=== PATIENT | male | born 1990 | race Caucasian/White ===

== ENCOUNTER → 2019-09-18 15:52 | Outpatient (BNVA) | payer SELFPAY | PROVIDERS: Family Provider Family Medicine; PCP Family Medicine; Visit Provider Specialist | DX: G40.309 Generalized idiopathic epilepsy and epileptic syndromes, not intractable, without status epilepticus (principal); F98.8 Other specified behavioral and emotional disorders with onset usually occurring in childhood and adolescence; F17.210 Nicotine dependence, cigarettes, uncomplicated | CPT/HCPCS: 99214 ==

== ENCOUNTER 2019-12-26 19:22 | Inpatient (IN) | payer SELFPAY ==
--- NOTE | 2019-12-26 19:25 | ECG_ITS ---
Measurements Intervals [place] Rate: 99 P: 64 AL: 155 QRS: 34 QRSD: 85 T: 43 QT: 324 QTc: 417 SINUS RHYTHM Compared to ECG 12/14/2016 11:08:04 Sinus tachycardia no longer present Electronically Signed On 12-27-2019 8:14:58 CDT by Walter Chow M.D. [email or web address]
[2019-12-26 19:31] VITALS: BP 131/82; PULSE 104; RESP 16; TEMP 37.2; O2SAT 98; BMI 21.7
--- NOTE | 2019-12-26 19:42 | W.ED.PSYCH ---
HPI - Psych General: Chief Complaint: Psychiatric Symptoms Stated Complaint: MHE Time Seen by Provider: 12/26/19 19:25 History of Present Illness: HPI Narrative: Steven is a 29-year-old male who comes in complaining of having visual and auditory hallucinations. He also has had thoughts about wanting to hurt and kill himself. He states the voices are telling him to stop using drugs which he says he does not do. He states the voices are escalating in intensity to the point he does not feel like he can cope with this anymore. Review of Systems Const: Denies: fever(s), chills, body aches, fatigue, malaise or diaphoresis Eyes: Denies: change in vision, blurry vision, blind spots or photophobia ENMT: Denies: throat pain, odynophagia, hoarseness, swelling of lips/tongue, ear or mastoid pain, ear discharge, change in hearing or nasal discharge Card: Denies: chest pain, palpitations, irregular heart rhythm, edema, lightheadedness, syncope, pre-syncope, dyspnea on exertion or orthopnea Resp: Denies: dyspnea, productive cough, non-productive cough, wheezing, hemoptysis or chest congestion GI: Denies: abdominal pain, nausea, vomiting, hematemesis, coffee ground emesis, heartburn, diarrhea, constipation, GI cramping, hematochezia or melena : Denies: flank pain, dysuria, urinary frequency, urinary urgency or hematuria Musc: Denies: neck pain, back pain, extremity pain, extremity swelling, joint pain, joint swelling, joint redness, joint warmth or joint stiffness Skin/Breast: Denies: rash, pruritus, erythema, skin tenderness or jaundice Neuro: Denies: headache(s), numbness in extremities, weakness in extremities, sensory changes, lack of coordination, difficulty walking, dizziness, vertigo, confusion or Slurred speech present [place]/Lymph: Denies: easy bruising, easy bleeding, petechiae, purpura or enlarged lymph nodes All/Imm: Denies: urticaria, throat swelling, tongue swelling, facial swelling or acute wheezing PFSH ED PFSH: Medical History ADD (attention deficit disorder) Primary generalized epilepsy, major Family History Other CAD (coronary artery disease) Cancer Diabetes Hypertension Stroke Social History Smoking and tobacco status: current every day smoker cigarettes Packs smoked per day: 0.5 Alcohol intake: never Highest education level completed: Never Attended/Kindergarten Only History of recent travel: No Physical Exam Const: COMMON NORMALS: no acute distress, patient oriented x3, no limitations, healthy appearing and well nourished GENERAL APPEARANCE: cooperative, well kempt and well developed HENMT: COMMON NORMALS: normocephalic, atraumatic, hearing grossly normal bilaterally, external ears normal, EAC's normal, Normal external nose present and moist oral mucous membranes HEAD & SCALP: normocephalic and atraumatic NOSE: Normal external nose present and Normal nares present EXTERNAL EAR: Yes external ears normal EXTERNAL AUDITORY CANAL: EAC's normal MOUTH: Normal oral and palatal mucosa present, lip normal and tongue normal Eye: COMMON NORMALS: Equal, round and reactive pupils present, EOMs intact bilaterally, conjunctivae normal and no scleral icterus GENERAL EYE: appearance normal, both eyes and all related structures ALIGNMENT: Yes alignment normal PERIORBITAL: periorbital findings normal EYELID: eyelids normal CONJUNCTIVA: Yes conjunctivae normal SCLERA: sclerae normal PUPIL: Yes Equal, round and reactive pupils present Neck/C-Spine: COMMON NORMALS: full ROM, no lymphadenopathy, supple, no meningeal signs and no JVD GENERAL: Yes normal visual inspection and Yes trachea midline Chest: COMMONS NORMALS: normal inspection of the chest and normal palpation of entire chest wall Resp: COMMON NORMALS: normal respiratory effort, No retractions, No use of accessory muscles and clear to auscultation bilaterally EFFORT & INSPECTION: Yes able to speak in complete sentences and Yes symmetric chest movement AUSCULTATION: clear to auscultation bilaterally, no crackles, no rales, no rhonchi and no wheezes Cardio: COMMON NORMALS: no JVD, regular rate, regular rhythm, S1 normal heart sound present, S2 normal heart sound present, No gallops present (Cardio), No clicks present (Cardio), No murmurs present (Cardio) and No rub (Cardio) RATE: regular rate RHYTHM: regular rhythm HEART SOUNDS: S1 normal heart sound present and S2 normal heart sound present GI: COMMON NORMALS: Soft to palpation and No hepatosplenomegaly present PALPATION: Yes Soft to palpation, No Tenderness to palpation present (GI), No Guarding due to palpation present (GI), No Rigid due to palpation, Yes No hepatosplenomegaly present, No Hernia present, No Palpable mass present and No Pulsatile mass present : COMMON NORMALS: Yes no CVA tenderness BLADDER/KIDNEY EXAM: Yes no CVA tenderness Back/Pelvis: COMMON NORMALS: no CVA tenderness, thoracic and lumbar spine normal to inspection, no thoracic nor lumbar tenderness and thoraco-lumbar ROM normal Extremity: COMMON NORMALS: normal to inspection, full ROM, capillary refill normal, no joint enlargement, no clubbing, cyanosis or edema and no calf tenderness Neuro: COMMON NORMALS: patient oriented x3, CN's II-XII intact bilaterally, moves all extremities, no focal motor deficits and no sensory deficits noted MENINGEAL SIGNS: Yes no meningeal signs SPEECH: speech normal Psych: COMMON NORMALS: mental status grossly normal APPEARANCE: Yes well kempt ACTIVITY/MOTOR BEHAVIOR: Yes Avoids eye contact (attititude/behavior) SPEECH: Yes excessive and Yes Pressured speech present MOOD & AFFECT: Yes anxious ATTENTION/CONCENTRATION: Yes attention grossly intact and Yes concentration grossly intact INSIGHT: questionable JUDGEMENT: questionable Skin: COMMON NORMALS: no rashes or lesions noted, turgor normal, no jaundice, no petechiae and no mottling GENERAL SKIN EXAM: no rashes or lesions noted and turgor normal MDM - Psych MDM Narrative: Medical decision making narrative: Case has been reviewed with Dr. Burnett. He agrees accept the patient to the neuropsychiatric unit. Once patient's labs are back for medical clearance he will be admitted. Lab Data: Labs: Lab Results 12/26/19 12/26/19 12/26/19 Range/Units 19:44 19:44 19:44 WBC 14.1 H (4.0-10.0) 10^3/ uL RBC 5.05 (4.1-5.3) 10^6/u L Hgb 15.4 (11.7-16.6) g/dL Hct 46.1 (42.0-52.0) % MCV 91.3 (80-94) fL MCH 30.5 (28.0-34.0) pg MCHC 33.4 (30.0-36.0) g/dL RDW 12.2 (12.1-15.1) % Plt Count 312 (130-400) 10^3/c mm MPV 9.8 (7.4-10.4) fL Neut % (Auto) 76.2 % Lymph % (Auto) 15.8 % [place] % (Auto) 5.4 % Eos % (Auto) 1.9 % Baso % (Auto) 0.4 % Neut # (Auto) 10.7 H (1.8-7.7) 10^3/u L Lymph # (Auto) 2.2 (0.8-4.8) 10^3/u L [place] # (Auto) 0.8 (0.2-0.9) 10^3/u L Eos # (Auto) 0.3 (0.0-0.8) 10^3/u L Baso # (Auto) 0.1 (0.0-0.1) 10^3/u L Nucleated RBC % (a uto) 0 % Nucleated RBCs # 0.0 /100WBC Sodium 137 (136-145) mmol/L Potassium 3.8 (3.5-5.1) mmol/L Chloride 98 (98-107) mmol/L Carbon Dioxide 28 (22-29) mmol/L Anion Gap 14.8 (5-19) BUN 12 (6-20) mg/dL Creatinine 0.9 (0.7-1.2) mg/dL GFR Calculation 98.4 (90-130) mL/min Glucose 114 (65-115) mg/dL Calculated Osmolal ity 281 L (285-295) mOsm/k g Calcium 9.4 (8.5-10.5) mg/dL Total Bilirubin 0.2 (0.15-1.2) mg/dL AST 16 (0-40) U/L ALT 15 (0-41) U/L Alkaline Phosphata se 52 (40-130) IU/L Total Protein 6.7 (6.6-8.7) g/dL Albumin 4.4 (3.5-5.2) g/dL Globulin 2.3 (1.3-4.6) g/dL TSH 0.29 (0.27-4.20) uIU/ mL Salicylates < 0.3 L (3-10) mg/dL Acetaminophen < 5.0 L (10-30) ug/mL Phenytoin 0.8 L (10-20) ug/mL Valproic Acid 2.8 L (50-100) mcg/mL Carbamazepine 2.0 L (4.0-12.0) ug/mL [place] 0.1 L (0.6-1.2) mmol/L Ethyl Alcohol < 10 (0-10) mg/dL EKG Data^: EKG 1: Attestation: I personally reviewed and interpreted this EKG as follows: EKG interpretation date: 12/26/19 EKG interpretation time: 20:00 Interpretation: Normal sinus rhythm at 99 beats a minute, no acute ST or T wave changes. Normal QTC. Discharge Plan Discharge Patient Disposition: Admitted As Inpatient Admit Provider: Wicho Burnett Clinical Impression: Suicidal ideation, Acute psychosis Condition: Stable Referrals: Gail Zamarripa DO [Primary Care Provider] - Discharge Date/Time: 12/26/19 21:30 Coding Level of Care Code ED Collection Development Librarian for Chg Fwd Exam Comprehensive
[2019-12-26 19:52] LABS: Basophils # 0.1 10^3/uL (0.0-0.1); Basophils % 0.4 %; Eosinophils # 0.3 10^3/uL (0.0-0.8); Eosinophils % 1.9 %; Hematocrit 46.1 % (42.0-52.0); Hemoglobin 15.4 g/dL (11.7-16.6); Lymphocytes # 2.2 10^3/uL (0.8-4.8); Lymphocytes % 15.8 %; Mean Corpuscular HGB Conc 33.4 g/dL (30.0-36.0); Mean Corpuscular Hemoglobin 30.5 pg (28.0-34.0); Mean Corpuscular Volume 91.3 fL (80-94); Mean Platelet Volume 9.8 fL (7.4-10.4); Monocytes # 0.8 10^3/uL (0.2-0.9); Monocytes % 5.4 %; Neutrophils # 10.7 10^3/uL (1.8-7.7); Neutrophils % 76.2 %; Nucleated Red Blood Cells % 0 %; Platelet Count 312 10^3/cmm (130-400); Red Blood Count 5.05 10^6/uL (4.1-5.3); Red Cell Distribution Width 12.2 % (12.1-15.1); White Blood Count 14.1 10^3/uL (4.0-10.0)
[2019-12-26] MEDS: LORazepam 2 mg Tablet PO (20:10)
[2019-12-26 20:20] LABS: Lithium 0.1 mmol/L (0.6-1.2)
[2019-12-26 20:21] LABS: Alanine Aminotransferase 15 U/L (0-41); Albumin Level 4.4 g/dL (3.5-5.2); Alkaline Phosphatase 52 IU/L (40-130); Anion Gap 14.8 (5-19); Aspartate Amino Transferase 16 U/L (0-40); Blood Urea Nitrogen 12 mg/dL (6-20); Calcium 9.4 mg/dL (8.5-10.5); Carbon Dioxide 28 mmol/L (22-29); Chloride 98 mmol/L (98-107); Globulin 2.3 g/dL (1.3-4.6); Glomerular Filtration Rate 98.4 mL/min (90-130); Glucose 114 mg/dL (65-115); Osmolality Calculated 281 mOsm/kg (285-295); Phenytoin Dilantin 0.8 ug/mL (10-20); Potassium 3.8 mmol/L (3.5-5.1); Sodium 137 mmol/L (136-145); Thyroid Stimulating Hormone 0.29 uIU/mL (0.27-4.20); Total Bilirubin 0.2 mg/dL (0.15-1.2); Total Protein 6.7 g/dL (6.6-8.7); Valproic Acid Level 2.8 mcg/mL (50-100)
[2019-12-26 20:22] LABS: Acetaminophen < 5.0 ug/mL (10-30); Alcohol Level < 10 mg/dL (0-10); Salicylate < 0.3 mg/dL (3-10)
[2019-12-26 20:56] LABS: Amphetamines Screen Urine Positive (Negative); Barbiturates Screen Urine Negative (Negative); Benzodiazepines Screen Urine Positive (Negative); Cocaine Screen Urine Negative (Negative); Opiate Screen Urine Negative (Negative); PCP Screen Urine Negative (Negative); THC Screen Urine Positive (Negative)
[2019-12-26 21:46] VITALS: BP 123/82; PULSE 85; RESP 22; TEMP 36.9; O2SAT 99
[2019-12-26] MEDS: trazodone 50 mg Tablet PO (22:05)
[2019-12-26] MEDS: hyDROXYzine 25 mg Capsule 50 MG PO (22:05)
[2019-12-27 06:00] VITALS: BP 107/68; PULSE 64; RESP 18; TEMP 36.5; O2SAT 98
--- NOTE | 2019-12-27 10:23 | PM.NHP ---
Providers/Chief Complaint Admitting Physician: Wicho Burnett MD Primary Care Provider: Gail Zamarripa DO Chief Complaint: mhe HPI NPU History of Present Illness Steven Ricardo is a 29 year old male who presented today reporting that he is not really sure what is going on. He presented to the emergency room earlier endorsing that he is having auditory and visual hallucinations and having thoughts to kill himself. He endorsed voices telling him to do things like stop doing drugs which he does not do. And he reports that he cannot deal with this anymore. Today he is clearly uncomfortable and anxious with the interview. He found it very hard to focus and answer questions and mostly was desperate for help. We discussed the risks benefits and alternatives of initiating a medication to help with the voices. And he understood and agreed to proceed as documented in this note. We reviewed his past admission note and he endorsed that this was an accurate history. This however did not have significant psychosocial information and he was becoming very distraught with each additional question. 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 Per the last [facility] IP eval: History of Present Illness Date of Service: Jul 07, 2016 Chief Complaint: A misunderstanding with Dr. Thornton HPI: Steven is noted the services he was recently hospitalized here. This patient had a follow-up appointment with Dr. Thornton and during that visit it sounds as though the 2 of them had a conflict that culminated in the patient on entering either a para suicidal remark or perhaps threat. I am familiar with this patient as he was here about a week ago he has a history of a mood disorder anxiety and potential diagnosis of ADHD. He has a history of being treated by a psychiatrist in [place] and he has been making an effort to find psychiatric care in this area. As I evaluate the patient now, he is rather stable. Certainly denies any suicidal thinking he reports no homicidality. He does express some frustration in the interaction that he had with the psychiatrist in the outpatient setting. However, he assures me that he has no plans to harm himself or anyone else. We had a discussion about some of the difficulties as it relates to getting into see a psychiatrist. The patient states that he'll simply resume care with his treating psychiatrist in [place] to avoid further complications in this area. He is tolerating current medications so I will be making no changes. I expanded that likely observe him over the next 24-48 hours and discharge him to the outpatient setting. He expresses understanding. I also counseled the patient as to the need for improved mindfulness and he expresses understanding. Allergies: Coded Allergies: No Known Allergies (Unverified , 01/17/16) Active Meds: Meds NPU Home Medications Medication Instructions Recorded Confirmed Last Taken Type acetaminophen 650 mg 1,300 mg PO Q8H PRN tab MDD 4000mg 09/18/19 09/18/19 Unknown History tablet,extended release fluoxetine 40 mg capsule 40 mg PO BID 09/18/19 09/18/19 12/23/19 History levetiracetam 1,000 mg tablet for 1,000 mg PO BID #60 tab 09/18/19 12/27/19 12/24/19 Rx oral suspension gabapentin 300 mg capsule 300 mg PO TID #90 cap 10/22/19 12/23/19 Rx dextroamphetamine-amphetamine 20 mg PO TID 12/26/19 Unknown History Allergies Allergy/AdvReac Type Severity Reaction Status Date / Time azithromycin AdvReac rash Verified 09/18/19 16:23 PFS NPU PFSH: Medical History ADD (attention deficit disorder) Primary generalized epilepsy, major Family History Other CAD (coronary artery disease) Cancer Diabetes Hypertension Stroke Social History Smoking and tobacco status: current every day smoker cigarettes Packs smoked per day: 0.5 Alcohol intake: never Highest education level completed: Never Attended/Kindergarten Only History of recent travel: No Mental Status Exam MSE Comments: This is a well-nourished well-developed white male with adequate dress grooming and limited eye contact. No abnormal movement except for psychomotor retardation when left alone but psychomotor agitation during questioning. Semicooperative with exam in mild to moderate distress. Speech was normal rate decreased volume. Mood described as irritable, affect congruent. Thought process linear. Thought content: Patient endorsed suicidal ideation but denied homicidal ideation. No delusions reported but he definitely appeared guarded, he endorsed auditory visual hallucinations. Attention and concentration were limited and memory was unreliable but none were formally tested. He is alert and oriented x3. Insight and judgment are limited. Vitals/I&O/Wt Last Vital Signs Temp 97.7 F 12/27/19 06:00 Pulse 64 12/27/19 06:00 Resp 18 12/27/19 06:00 BP 107/68 12/27/19 06:00 Pulse Ox 98 12/27/19 06:00 Weight last 48 hrs Weight 61.235 kg Data NPU : 12/26/19 19:44 12/26/19 19:44 A&P Assessment and plan (1) Suicidal ideation: Status: Acute (2) Acute psychosis: Status: Acute Additional A&P Information This is a 29-year-old white male with a long history of mental health diagnoses and treatment with a history of ADHD and depression who presents with psychosis and denying drug use but with a screen positive for multiple substances endorsing an openness for initiation of medication. 1. Continue current medication. Except: Start Abilify 10 mg p.o. every morning. 2. Encourage individual group and milieu therapy. 3. Continue to 15-minute checks for safety. 4. We will work with social work team for appropriate follow-up and explore the extent of his likely addiction with follow-up to include sober living treatment at the highest level to which he is willing to commit. Involuntary Hold Information 96 Hour Hold: 96 Hour Involuntary Admission: No Attestations NPU Medical Necessity Statement*: Inpatient hospitalization is medically necessary and the clinically appropriate intervention at this time. We will initiate medications and make adjustments as indicated. He will be in the hospital for over 2 midnights. Likely length of stay 3 to 5 days. Coding Level of Care Code Acute Rail Transit Operator for Jose Horvath Diagnoses Suicidal ideation R45.851 Acute psychosis F23
[2019-12-27 14:00] VITALS: BP 116/75; PULSE 75; RESP 18; TEMP 36.6
[2019-12-27] MEDS: ARIPiprazole 10 mg Tablet PO (14:45)
[2019-12-27] MEDS: gabapentin 300 mg Capsule PO (21:30)
[2019-12-27] MEDS: trazodone 100 mg Tablet PO (21:30)
[2019-12-27 22:00] VITALS: BP 114/74; PULSE 87; RESP 16; TEMP 36.3; O2SAT 97
[2019-12-28 06:00] VITALS: BP 127/80; PULSE 97; RESP 15; TEMP 37.1; O2SAT 97
[2019-12-28] MEDS: acetaminophen 325 mg Tablet 650 MG PO (06:50)
[2019-12-28] MEDS: fluoxetine 20 mg Capsule 40 MG PO ×2 (08:29→17:24)
[2019-12-28] MEDS: ARIPiprazole 10 mg Tablet PO (08:29)
[2019-12-28] MEDS: gabapentin 300 mg Capsule PO ×3 (08:29→20:38)
[2019-12-28] MEDS: levETIRAcetam 500 mg Tablet 1000 MG PO ×2 (11:16→17:24)
--- NOTE | 2019-12-28 11:37 | P.PN_ITS ---
Subjective NPU Subjective: Interval history: Steven presents today reporting that he is doing fine with the Abilify. He denies any specific side effects and was open to the restarting of his home medications, that he was able to articulate and were identified. He reportedly takes medication for attention deficit hyperactivity disorder, which is not available here, but as we have discussed this not being a long stay, he is okay with just waiting until he gets home to restart that. He is identifying that there are things at home for him to focus on, like his and their upcoming baby, he just knew he needed to get his medications correct so that he could be there for them. Mental Status Exam MSE Comments: This is a well-nourished, well-developed, white male, with adequate dress, grooming, and eye contact. No abnormal movements, except for mild psychomotor retardation. Cooperative with exam in no acute distress. Speech was normal rate and volume. Mood described as better; affect congruent. Thought process, organized. Thought content: patient denied any suicidal or homicidal ideation, there were no delusions reported or noted, patient denied any auditory or visual hallucinations. Attention, concentration, and memory appeared intact but none were formally tested. Alert and oriented times three. Insight and judgment are limited but improving. Vitals/I&O/Wt Last Vital Signs Temp 98.7 F 12/28/19 06:00 Pulse 97 12/28/19 06:00 Resp 15 12/28/19 06:00 BP 127/80 12/28/19 06:00 Pulse Ox 97 12/28/19 06:00 Weight last 48 hrs Weight 62.709 kg Data NPU : 12/26/19 19:44 12/26/19 19:44 A&P Additional A&P Information (1) Suicidal ideation: (2) Acute psychosis: This is a 29-year-old white male with a long history of mental health diagnoses and treatment with a history of ADHD and depression who presents with psychosis and denying drug use but with a screen positive for multiple substances endorsing an openness for initiation of medication. 1. Continue current medication. Except: Restart verified home meds 2. Encourage individual group and milieu therapy. 3. Continue to 15-minute checks for safety. 4. We will work with social work team for appropriate follow-up and explore the extent of his likely addiction with follow-up to include sober living treatment at the highest level to which he is willing to commit. Involuntary Hold Information 96 Hour Hold: 96 Hour Involuntary Admission: No Attestations NPU Medical Necessity Statement*: Inpatient hospitalization is medically necessary and the clinically appropriate intervention at this time. We will initiate medications and make adjustments as indicated. Likely length of stay 2-4 days. Coding Level of Care Code Acute Mobile Application Engineer for Jose Horvath
[2019-12-28 14:00] VITALS: BP 134/74; PULSE 96; RESP 18; TEMP 36.4
[2019-12-28] MEDS: doxepin 10 mg Capsule PO (20:38)
[2019-12-28 21:30] VITALS: BP 107/67; PULSE 85; RESP 20; TEMP 37.1; O2SAT 97
[2019-12-29 06:00] VITALS: BP 108/72; PULSE 88; RESP 18; TEMP 36.6; O2SAT 97
[2019-12-29] MEDS: levETIRAcetam 500 mg Tablet 1000 MG PO (08:06)
[2019-12-29] MEDS: fluoxetine 20 mg Capsule 40 MG PO (08:06)
[2019-12-29] MEDS: ARIPiprazole 10 mg Tablet PO (08:06)
[2019-12-29] MEDS: gabapentin 300 mg Capsule PO (08:06)
--- NOTE | 2019-12-29 11:37 | P.PN_ITS ---
Vitals/I&O/Wt Last Vital Signs Temp 97.8 F 12/29/19 06:00 Pulse 88 12/29/19 06:00 Resp 18 12/29/19 06:00 BP 108/72 12/29/19 06:00 Pulse Ox 97 12/29/19 06:00 Weight last 48 hrs Weight 62.709 kg Data NPU : 12/26/19 19:44 12/26/19 19:44 Involuntary Hold Information 96 Hour Hold: 96 Hour Involuntary Admission: No Coding Level of Care Code Acute Surface Plate Finisher for Jose Horvath
--- NOTE | 2019-12-29 11:49 | P.DS_ITS ---
Diagnoses at Discharge Discharge Diagnosis (1) Suicidal ideation: Status: Resolved (2) Acute psychosis: Status: Acute Reason for Visit Reason for Visit: Reason For Visit: mhe Brief History: History of Present Illness Steven Ricardo is a 29 year old male who presented today reporting that he is not really sure what is going on. He presented to the emergency room earlier endorsing that he is having auditory and visual hallucinations and having thoughts to kill himself. He endorsed voices telling him to do things like stop doing drugs which he does not do. And he reports that he cannot deal with this anymore. Today he is clearly uncomfortable and anxious with the interview. He found it very hard to focus and answer questions and mostly was desperate for help. We discussed the risks benefits and alternatives of initiating a medication to help with the voices. And he understood and agreed to proceed as documented in this note. We reviewed his past admission note and he endorsed that this was an accurate history. This however did not have significant psychosocial information and he was becoming very distraught with each additional question. 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 Per the last [facility] [place] IP eval: History of Present Illness Date of Service: Jul 07, 2016 Chief Complaint: A misunderstanding with Dr. Thornton HPI: Steven is noted the services he was recently hospitalized here. This patient had a follow-up appointment with Dr. Thornton and during that visit it sounds as though the 2 of them had a conflict that culminated in the patient on entering either a para suicidal remark or perhaps threat. I am familiar with this patient as he was here about a week ago he has a history of a mood disorder anxiety and potential diagnosis of ADHD. He has a history of being treated by a psychiatrist in [place] and he has been making an effort to find psychiatric care in this area. As I evaluate the patient now, he is rather stable. Certainly denies any suicidal thinking he reports no homicidality. He does express some frustration in the interaction that he had with the psychiatrist in the outpatient setting. However, he assures me that he has no plans to harm himself or anyone else. We had a discussion about some of the difficulties as it relates to getting into see a psychiatrist. The patient states that he'll simply resume care with his treating psychiatrist in [place] to avoid further complications in this area. He is tolerating current medications so I will be making no changes. I expanded that likely observe him over the next 24-48 hours and discharge him to the outpatient setting. He expresses understanding. I also counseled the patient as to the need for improved mindfulness and he expresses understanding. Allergies: Coded Allergies: No Known Allergies (Unverified , 01/17/16) Active Meds: Hospital Course Hospital Course The patient presented to the emergency room with hallucinations and was not very communicative, with concerns for lethality. He was admitted to the neuropsychiatric unit for definitive treatment of those issues. He very slowly acclimated to the individual, group, and milieu therapies provided. And he was open to a trial of medication for his psychosis. He was continued on his home medication and started on Abilify with a positive repose. Additionally, he acknowledged he is having some issues with addiction, and endorsed an openness to outpatient treatment. During the hospitalization, the patient had routine laboratory studies which were within normal limits, except for a few outliers. Additionally, he had a general medical evaluation which was within normal limits and revealed no new acute processes. Discharge Summary At the time of discharge the patient denied all lethality, was absent psychosis, and mood and anxiety were well managed. The patient endorsed a plan to avoid all drugs of abuse and to follow-up with outpatient services, as recommended. He was evaluated and deemed to be absent credible lethality, and had achieved the maximum benefit from an inpatient hospitalization, and so he was discharged. Involuntary Hold Information 96 Hour Hold: 96 Hour Involuntary Admission: No Mental Status Exam MSE Comments: This is a well-nourished, well-developed, white male, with adequate dress, grooming, and eye contact. No abnormal movements, except for mild, resolving psychomotor retardation. Cooperative with exam in no acute distress. Speech was decreased rate and volume but improving. Mood described as much better; affect congruent. Thought process, organized. Thought content: patient denied any suicidal or homicidal ideation, there were no delusions reported or noted, patient denied any auditory or visual hallucinations. Attention, concentration, and memory appeared intact but none were formally tested. He is alert and oriented times three. Insight and judgment are limited but improving. Impulse control is limited but improving. Discharge Data Vitals: Last Vital Signs Temp 97.8 F 12/29/19 06:00 Pulse 88 12/29/19 06:00 Resp 18 12/29/19 06:00 BP 108/72 12/29/19 06:00 Pulse Ox 97 12/29/19 06:00 Discharge Plan Discharge Patient Disposition: Home, Self-Care Condition: Stable Prescriptions: New doxepin 10 mg Capsule 10 mg PO BEDTIME 30 Days Qty: 30 RF: 1 fluoxetine 20 mg Capsule 40 mg PO BID 30 Days Qty: 120 RF: 1 aripiprazole 10 mg Tablet 10 mg PO DAILY 30 Days Qty: 30 RF: 1 Continued acetaminophen [Tylenol Arthritis Pain] 650 mg tablet extended release 1,300 mg PO Q8H MDD 4000mg PRN (Reason: Pain) RF: 0 levetiracetam 1,000 mg tablet for suspension 1,000 mg PO BID Qty: 60 RF: 8 gabapentin 300 mg capsule 300 mg PO TID Qty: 90 RF: 3 Discontinued fluoxetine 40 mg capsule 40 mg PO BID RF: 0 No Action dextroamphetamine-amphetamine 20 mg PO TID 30 Days Qty: 30 RF: 0 dextroamphetamine-amphetamine [Adderall] 20 mg tablet 20 mg PO TID 30 Days Qty: 30 RF: 0 Discharge Orders: Discharge Order (Routine); Ordered 12/29/19 Ordered By: Wicho Burnett Referrals: [facility] in [facility] [Other] - 1-3 days (call to confirm intake process. You were given the intake paperwork. Turn the paperwork in and request initial intake interview. They do have walk-in hours on Tuesdays and 7:30 a.m.-2:30 p.m. Call to confirm. 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
[2019-12-29 11:56] VITALS: BP 108/72; PULSE 88; RESP 18; TEMP 36.6; O2SAT 97
== END 2019-12-29 13:30 | disposition home or self-care (01) | DRG 885 ==
LOC: ER 20:07 → NP 20:15
PROVIDERS: Emergency Medicine; Admitting Provider Psychiatry & Neurology Psychiatry; PCP Family Medicine; Visit Provider Psychiatry & Neurology Psychiatry
DX: F23 Brief psychotic disorder (principal); R45.851 Suicidal ideations; F39 Unspecified mood [affective] disorder; F41.9 Anxiety disorder, unspecified; F98.8 Other specified behavioral and emotional disorders with onset usually occurring in childhood and adolescence; F17.210 Nicotine dependence, cigarettes, uncomplicated; G40.409 Other generalized epilepsy and epileptic syndromes, not intractable, without status epilepticus
CPT/HCPCS: 12345; 80053; 80156; 80164; 80178; 80185; 80306; 80307; 84443; 85025; 93005; 99282

== ENCOUNTER → 2020-01-28 09:20 | Outpatient (BNVA) | payer SELFPAY | PROVIDERS: PCP Family Medicine; Visit Provider Specialist | DX: G40.309 Generalized idiopathic epilepsy and epileptic syndromes, not intractable, without status epilepticus (principal); F90.9 Attention-deficit hyperactivity disorder, unspecified type | CPT/HCPCS: 99214 ==

== ENCOUNTER 2020-02-04 21:00 | Emergency (ER) | payer SELFPAY ==
[2020-02-04 21:02] VITALS: BP 120/79; PULSE 96; RESP 18; TEMP 37.3; O2SAT 96; BMI 25.8
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
[2020-02-04] MEDS: HYDROcodone-acetaminophen 7.5-325 mg Tablet 1 TAB PO (21:45)
[2020-02-04 21:50] LABS: Basophils # 0.1 10^3/uL (0.0-0.1); Basophils % 0.4 %; Eosinophils # 0.1 10^3/uL (0.0-0.8); Eosinophils % 0.6 %; Hematocrit 43.1 % (42.0-52.0); Hemoglobin 14.3 g/dL (11.7-16.6); Lymphocytes # 1.9 10^3/uL (0.8-4.8); Lymphocytes % 13.8 %; Mean Corpuscular HGB Conc 33.2 g/dL (30.0-36.0); Mean Corpuscular Hemoglobin 30.4 pg (28.0-34.0); Mean Corpuscular Volume 91.5 fL (80-94); Mean Platelet Volume 9.4 fL (7.4-10.4); Monocytes # 1.4 10^3/uL (0.2-0.9); Monocytes % 9.7 %; Neutrophils # 10.59 10^3/uL (1.8-7.7); Neutrophils % 75.3 %; Nucleated Red Blood Cells % 0 %; Platelet Count 366 10^3/cmm (130-400); Red Blood Count 4.71 10^6/uL (4.1-5.3); Red Cell Distribution Width 12.7 % (12.1-15.1); White Blood Count 14.1 10^3/uL (4.0-10.0)
[2020-02-04 22:08] LABS: Alanine Aminotransferase 13 U/L (0-41); Albumin Level 4.6 g/dL (3.5-5.2); Alkaline Phosphatase 101 IU/L (40-130); Anion Gap 11.8 (5-19); Aspartate Amino Transferase 15 U/L (0-40); Blood Urea Nitrogen 9 mg/dL (6-20); Calcium 9.7 mg/dL (8.5-10.5); Carbon Dioxide 29 mmol/L (22-29); Chloride 99 mmol/L (98-107); Globulin 2.8 g/dL (1.3-4.6); Glomerular Filtration Rate 98.4 mL/min (90-130); Glucose 88 mg/dL (65-115); Osmolality Calculated 277 mOsm/kg (285-295); Potassium 3.8 mmol/L (3.5-5.1); Sodium 136 mmol/L (136-145); Total Bilirubin 0.4 mg/dL (0.15-1.2); Total Protein 7.4 g/dL (6.6-8.7)
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
[2020-02-04] MEDS: sodium chloride 0.9% 1,000 ML 999 ML IV (23:36)
[2020-02-04 23:55] VITALS: PULSE 98; RESP 18; O2SAT 97
[2020-02-04] MEDS: albuterol 8 gm MDI 2 PUFF INHALATION (23:55)
[2020-02-05 00:01] VITALS: PULSE 97; O2SAT 96
[2020-02-05 00:05] LABS: Influenza A by IFA Negative (Negative); Influenza B by IFA Negative (Negative); Rapid Strep A Test Negative (Negative)
[2020-02-05] MEDS: iohexol 350 mg/mL 100 mL Btl IV (03:09)
[2020-02-05] MEDS: HYDROcodone-acetaminophen 7.5-325 mg Tablet 1 TAB PO (04:47)
[2020-02-06 17:20] LABS: Quest SARS-CoV-2 RNA NOT DETECTED (NOT DETECTED)
== END 2020-02-05 09:34 | disposition home or self-care (01) ==
PROVIDERS: Physician Assistant; Emergency Provider Emergency Medicine
DX: S22.41XA Multiple fractures of ribs, right side, initial encounter for closed fracture (principal); S32.009A Unspecified fracture of unspecified lumbar vertebra, initial encounter for closed fracture; J06.9 Acute upper respiratory infection, unspecified; F17.210 Nicotine dependence, cigarettes, uncomplicated; V49.9XXA Car occupant (driver) (passenger) injured in unspecified traffic accident, initial encounter
CPT/HCPCS: 12345; 36415; 71101; 71275; 74177; 80053; 85025; 87040; 87081; 87635; 87804; 87880; 94640; 96360; 99283; 99284; J3535; J7030; Q9967

== ENCOUNTER → 2020-05-30 15:28 | Outpatient (BNVA) | payer OTHER, SELFPAY | PROVIDERS: Visit Provider Nurse Practitioner Family | DX: Z20.828 Contact with and (suspected) exposure to other viral communicable diseases (principal) | CPT/HCPCS: 86710; 87400; 87635 ==

== ENCOUNTER 2021-10-13 00:21 | Emergency (ER) | payer MEDICAID, SELFPAY ==
[2021-10-13 00:26] VITALS: BP 129/93; PULSE 86; RESP 16; TEMP 36.6; O2SAT 99; BMI 27.4
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
[2021-10-13] MEDS: iohexol 300 mg/mL 100 mL Btl IV (01:08)
[2021-10-13] MEDS: morphine 4 mg/mL SDV 1 mL IVP (01:28)
[2021-10-13] MEDS: ondansetron 2 mg/ML SDV 2 mL 4 MG IVP (01:28)
[2021-10-13 02:22] VITALS: BP 141/106; PULSE 85; RESP 18; O2SAT 96
== END 2021-10-13 02:24 | disposition home or self-care (01) ==
PROVIDERS: Emergency Provider Physician Assistant
DX: S39.012A Strain of muscle, fascia and tendon of lower back, initial encounter (principal); S20.219A Contusion of unspecified front wall of thorax, initial encounter; S30.1XXA Contusion of abdominal wall, initial encounter; V47.5XXA Car driver injured in collision with fixed or stationary object in traffic accident, initial encounter; F17.210 Nicotine dependence, cigarettes, uncomplicated
CPT/HCPCS: 70450; 71260; 72125; 72128; 72131; 74177; 96374; 96375; 99283; J2270; J2405; Q9967

== ENCOUNTER → 2022-02-28 16:28 | Outpatient (BNVA) | payer BC, SELFPAY | PROVIDERS: PCP Family Medicine; Visit Provider Family Medicine | DX: F98.8 Other specified behavioral and emotional disorders with onset usually occurring in childhood and adolescence (principal); M54.2 Cervicalgia; G89.29 Other chronic pain; M47.812 Spondylosis without myelopathy or radiculopathy, cervical region; M47.816 Spondylosis without myelopathy or radiculopathy, lumbar region; F41.9 Anxiety disorder, unspecified; F32.9 Major depressive disorder, single episode, unspecified | CPT/HCPCS: 80053; 80061; 83721; 84443; 85025 ==

== ENCOUNTER 2022-12-11 08:10 | Emergency (ER) | payer BC, MEDICAID, SELFPAY ==
[2022-12-11 08:21] VITALS: BP 127/85; PULSE 73; RESP 17; TEMP 36.8; O2SAT 98
--- NOTE | 2022-12-11 08:47 | W.ED.COVID ---
HPI - COVID General: Chief Complaint: COVID symptoms Stated Complaint: covid symptoms Time Seen by Provider: 12/11/22 08:17 Source: patient Mode of arrival: ambulatory Limitations: no limitations History of Present Illness: Patient presents to the emergency department today accompanied by significant other for evaluation treatment of reported 2 weeks of vomiting and diarrhea. Patient states he vomits 4-5 times a day and has about the same amount of loose brown diarrhea. He states that his symptoms come and go and he will have days where he has no symptoms. Patient reports his fevers off and on in the same fashion. Patient is now reporting abdominal pain from the epigastric region down into the periumbilical area. Patient indicated concerns for COVID reporting COVID exposure but, COVID exposure seems to be after his symptoms started. However, he has taken 2 at-home test which were both negative. Patient has not been able to return to work due to his symptoms. Patient denies significant upper respiratory symptoms including sore throat or cough. Patient has been taking Pepto-Bismol which he reports does seem to help his symptoms. COVID Results: SARS-CoV-2 Antigen (Rapid) negative (Negative) 12/11/22 09:25 SARS-CoV-2 RNA (RT-PCR) Not detected (NOT DETECTED) 05/30/20 15:28 Review of Systems General: Reports: 10 or more systems reviewed and unremarkable except in HPI and below PFSH ED PFSH: Medical History ADD (attention deficit disorder) Depression Primary generalized epilepsy, major Substance use disorder Family History Other CAD (coronary artery disease) Cancer Diabetes Hypertension Stroke Social History (Updated 12/11/22 @ 08:51 by SANTIAGO Castro) Smoking and tobacco status: never smoked Second hand smoke exposure: No Alcohol intake: never Substance/Drug Use: former Current gender identity: Male Physical Exam Const: COMMON NORMALS: no acute distress, patient oriented x3 and alert HENMT: COMMON NORMALS: normocephalic, atraumatic, hearing grossly normal bilaterally and moist oral mucous membranes HEAD & SCALP: normocephalic and atraumatic Eye: COMMON NORMALS: Equal, round and reactive pupils present, EOMs intact bilaterally and conjunctivae normal CONJUNCTIVA: Yes conjunctivae normal PUPIL: Yes Equal, round and reactive pupils present Neck/C-Spine: COMMON NORMALS: full ROM and no JVD Lymph: LYMPHATIC: no lymphadenopathy noted Resp: COMMON NORMALS: normal respiratory effort, No retractions, No use of accessory muscles and clear to auscultation bilaterally AUSCULTATION: clear to auscultation bilaterally Cardio: COMMON NORMALS: no JVD, regular rate and regular rhythm RATE: regular rate RHYTHM: regular rhythm GI: OTHER: Patient has active bowel sounds-especially on the left side. Patient has no specific tenderness on palpation-patient indicates pain across all areas of palpation on the abdomen. His abdomen is soft. There is no guarding or rebound appreciated. : COMMON NORMALS: Yes no CVA tenderness BLADDER/KIDNEY EXAM: Yes no CVA tenderness Back/Pelvis: COMMON NORMALS: no CVA tenderness, no thoracic nor lumbar tenderness and thoraco-lumbar ROM normal Extremity: COMMON NORMALS: normal to inspection, full ROM and capillary refill normal Neuro: COMMON NORMALS: patient oriented x3 SENSORIUM/ORIENTATION: Yes alert Psych: COMMON NORMALS: mental status grossly normal, Normal thought process present, cooperative, normal affect and activity/motor behavior normal THOUGHT PROCESS: Normal thought process present Skin: COMMON NORMALS: no rashes or lesions noted and no wounds GENERAL SKIN EXAM: no rashes or lesions noted Course Vital Signs: Vital signs: Vital Signs Temperature 98.3 F 12/11/22 08:21 Pulse Rate 68 12/11/22 12:12 Respiratory Rate 18 12/11/22 12:12 Blood Pressure 134/87 12/11/22 09:24 Pulse Oximetry 96 12/11/22 12:12 Oxygen Delivery Me thod Room Air 12/11/22 11:00 [facility] - COVID Medical Decision Making Patient presents to the emergency department today reporting 2 weeks of GI symptoms. Patient is nontoxic-appearing and is normotensive and nontachycardic. Patient has no upper respiratory concerns at this time. Patient's lab work shows no significant findings of dehydration or infection. However, patient is very specific about the location of his pain and, with the length of time he has had it we did proceed on with some imaging. Imaging also revealed no acute concerns or causes for 2 weeks of nausea and vomiting. We will treat symptomatically but, encouraged him to follow-up with his primary care doctor later this week to discuss his symptoms. Patient should be seen and reevaluated through the emergency department for any low blood pressure readings, syncope, bloody stools or bloody vomit. Differential Diagnosis Likely COVID 19, other viral infection (Pancreatitis, cholecystitis, gastroenteritis) and overdose/intoxication (Could consider hyperemesis cannabis in future evaluations) Lab Data 12/11/22 09:13 12/11/22 09:13 Radiology Impressions Abdomen/Pelvis CT 12/11/22 10:32 IMPRESSION: 1. No acute abdominal or pelvic abnormalities are identified. 2. No GI tract obstruction or renal obstruction. 3. Normal appendix. No free fluid. Laboratory Results WBC 6.4 10^3/uL (4.0-10.0) 12/11/22 09:13 RBC 4.63 10^6/uL (4.1-5.3) 12/11/22 09:13 Hgb 14.6 g/dL (11.7-16.6) 12/11/22 09:13 Hct 42.5 % (42.0-52.0) 12/11/22 09:13 MCV 91.8 fl (80-94) 12/11/22 09:13 MCH 31.5 pg (28.0-34.0) 12/11/22 09:13 MCHC 34.4 g/dL (30.0-36.0) 12/11/22 09:13 RDW 13.3 % (12.1-15.1) 12/11/22 09:13 Plt Count 356 10^3/cmm (130-400) 12/11/22 09:13 MPV 9.4 fL (7.4-10.4) 12/11/22 09:13 Neut % (Auto) 63.8 % 12/11/22 09:13 Lymph % (Auto) 24.7 % 12/11/22 09:13 [place] % (Auto) 9.6 % 12/11/22 09:13 Eos % (Auto) 0.9 % 12/11/22 09:13 Baso % (Auto) 0.5 % 12/11/22 09:13 Neut # (Auto) 4.06 10^3/uL (1.8-7.7) 12/11/22 09:13 Lymph # (Auto) 1.6 10^3/uL (0.8-4.8) 12/11/22 09:13 [place] # (Auto) 0.6 10^3/uL (0.2-0.9) 12/11/22 09:13 Eos # (Auto) 0.1 10^3/uL (0.0-0.8) 12/11/22 09:13 Baso # (Auto) 0.0 10^3/uL (0.0-0.1) 12/11/22 09:13 Nucleated RBC % (auto) 0 % 12/11/22 09:13 Nucleated RBCs # 0.0 /100WBC 12/11/22 09:13 ESR 8 mm/hr (0-10) 12/11/22 09:13 Sodium 138 mmol/L (136-145) 12/11/22 09:13 Potassium 4.2 mmol/L (3.5-5.1) 12/11/22 09:13 Chloride 102 mmol/L (98-107) 12/11/22 09:13 Carbon Dioxide 26 mmol/L (22-29) 12/11/22 09:13 Anion Gap 14.2 (5-19) 12/11/22 09:13 BUN 9 mg/dL (6-20) 12/11/22 09:13 Creatinine 0.8 mg/dL (0.7-1.2) 12/11/22 09:13 GFR Calculation 110.7 mL/min (90-130) 12/11/22 09:13 Glucose 118 mg/dL (65-115) H 12/11/22 09:13 Calculated Osmolality 286 mOsm/kg (285-295) 12/11/22 09:13 Calcium 9.7 mg/dL (8.5-10.5) 12/11/22 09:13 Total Bilirubin 0.5 mg/dL (0.15-1.2) 12/11/22 09:13 AST 26 U/L (0-40) 12/11/22 09:13 ALT 25 U/L (0-41) 12/11/22 09:13 Alkaline Phosphatase 65 U/L (40-130) 12/11/22 09:13 C-Reactive Protein 3.0 mg/L (0.0-4.9) 12/11/22 09:13 Total Protein 7.3 g/dL (6.6-8.7) 12/11/22 09:13 Albumin 4.3 g/dL (3.5-5.2) 12/11/22 09:13 Globulin 3.0 g/dL (1.3-4.6) 12/11/22 09:13 Lipase 15 U/L (13-60) 12/11/22 09:13 Urine Color Colorless (Yellow) 12/11/22 10:15 Urine Appearance Clear (CLEAR) 12/11/22 10:15 Urine pH 7 (5-7) 12/11/22 10:15 Ur Specific [place] 1.010 (1.005-1.030) 12/11/22 10:15 Urine Protein Neg (Negative) 12/11/22 10:15 Urine Glucose (UA) Norm (Normal) 12/11/22 10:15 Urine Ketones Negative (Negative) 12/11/22 10:15 Urine Blood Neg (Negative) 12/11/22 10:15 Urine Nitrate Negative (Negative) 12/11/22 10:15 Urine Bilirubin Neg (Negative) 12/11/22 10:15 Urine Urobilinogen Norm mg/dL (Negative) 12/11/22 10:15 Ur Leukocyte Esterase Negative (Negative) 12/11/22 10:15 SARS-CoV-2 Ag (Rapid) negative (Negative) 12/11/22 09:25 SARS-CoV-2 Antigen (Rapid) negative (Negative) 12/11/22 09:25 SARS-CoV-2 RNA (RT-PCR) Not detected (NOT DETECTED) 05/30/20 15:28 Discharge Plan Discharge Patient Disposition: Home Clinical Impression: Nausea, vomiting and diarrhea Prescriptions: New ondansetron 4 mg tablet,disintegrating 4 mg PO Q8H 5 Days Qty: 15 0RF dicyclomine 10 mg capsule 10 mg PO TID Qty: 14 0RF tizanidine 4 mg capsule 4 mg PO Q8H PRN (Reason: muscle spasticity) Qty: 20 0RF No Action triamcinolone acetonide [Kenalog] 40 mg/mL suspension 40 mg intra-articular ONCE Qty: 1 0RF bupivacaine (PF) 0.5 % (5 mg/mL) solution 5 mg intra-articular ONCE Qty: 2 0RF lidocaine (PF) 20 mg/mL (2 %) solution 20 mg IM ONCE Qty: 2 0RF bupropion HCl 75 mg tablet See Rx Instructions .ROUTE .COMPLEX Qty: 30 0RF Rx Instructions: take a-half tab po q am x 8 days then take a whole tab po q AM if tolerated acetaminophen [Tylenol Arthritis Pain] 650 mg tablet extended release 1,300 mg PO Q8H MDD 4000mg PRN (Reason: Pain) fluoxetine 20 mg capsule 60 mg PO DAILY 30 Days Qty: 90 3RF gabapentin 600 mg tablet 600 mg PO BID Qty: 60 5RF levetiracetam 1,000 mg tablet See Rx Instructions .ROUTE .COMPLEX Qty: 60 10RF Dose Instruction: TAKE 1 TABLET BY MOUTH TWICE DAILY (NEEDS APPT. FOR FUTURE REFILLS) Rx Instructions: TAKE 1 TABLET BY MOUTH TWICE DAILY (NEEDS APPT. FOR FUTURE REFILLS) Discharge Orders: Discharge ED (Routine); Ordered 12/11/22 Ordered By: Monie Gallegos Referrals: Isaiah Mathur DO [Primary Care Provider] - Discharge Diet: Advance as tolerated Discharge Activity: Increase activity as tolerated Patient Instructions: Diarrhea - Adult, Vomiting - Adult Activity Restrictions/Additional Instructions: Lab work today showed no signs of any bacterial infections. You show no signs of anemia and your electrolytes are within normal limits. Your kidneys do not appear to be affected by the loss of fluids at this time. However, it is still very important that you increase your clear fluid intake anytime you have vomiting or diarrhea. I am also providing you medications which will help slow your diarrhea, help alleviate some abdominal cramping, and antinausea medication to hopefully prevent vomiting. I have given you a short course of some muscle relaxers to help with your muscle pain as you are not able to tolerate NSAIDs. The CT scan revealed no signs of an acute pancreatitis, concerns for cholecystitis, or any type of severe bowel inflammation. At this time, I do not think you have any type of communicable illness that you could give others however, I do want you to see your primary care doctor later this week for recheck and continued monitoring of your symptoms. Stand Alone Forms: Work/School Release Coding Level of Care Code ED Commuter Train Operator for Jose Horvath
[2022-12-11] MEDS: ondansetron 2 mg/ML SDV 2 mL 4 MG IVP (09:19)
[2022-12-11] MEDS: sodium chloride 0.9% 1,000 ML 999 ML IV (09:19)
[2022-12-11 09:20] LABS: Basophils % 0.5 %; Eosinophils # 0.1 10^3/uL (0.0-0.8); Eosinophils % 0.9 %; Hematocrit 42.5 % (42.0-52.0); Hemoglobin 14.6 g/dL (11.7-16.6); Lymphocytes # 1.6 10^3/uL (0.8-4.8); Lymphocytes % 24.7 %; Mean Corpuscular HGB Conc 34.4 g/dL (30.0-36.0); Mean Corpuscular Hemoglobin 31.5 pg (28.0-34.0); Mean Corpuscular Volume 91.8 fl (80-94); Mean Platelet Volume 9.4 fL (7.4-10.4); Monocytes # 0.6 10^3/uL (0.2-0.9); Monocytes % 9.6 %; Neutrophils # 4.06 10^3/uL (1.8-7.7); Neutrophils % 63.8 %; Nucleated Red Blood Cells % 0 %; Platelet Count 356 10^3/cmm (130-400); Red Blood Count 4.63 10^6/uL (4.1-5.3); Red Cell Distribution Width 13.3 % (12.1-15.1); White Blood Count 6.4 10^3/uL (4.0-10.0)
[2022-12-11 09:24] VITALS: BP 134/87; PULSE 76; O2SAT 96
[2022-12-11 09:36] VITALS: O2SAT 95
[2022-12-11 09:38] LABS: Alanine Aminotransferase 25 U/L (0-41); Albumin Level 4.3 g/dL (3.5-5.2); Alkaline Phosphatase 65 U/L (40-130); Aspartate Amino Transferase 26 U/L (0-40); Blood Urea Nitrogen 9 mg/dL (6-20); Calcium 9.7 mg/dL (8.5-10.5); Carbon Dioxide 26 mmol/L (22-29); Chloride 102 mmol/L (98-107); Erythrocyte Sedimentation Rate 8 mm/hr (0-10); Glomerular Filtration Rate 110.7 mL/min (90-130); Glucose 118 mg/dL (65-115); Lipase 15 U/L (13-60); Osmolality Calculated 286 mOsm/kg (285-295); Sodium 138 mmol/L (136-145); Total Bilirubin 0.5 mg/dL (0.15-1.2); Total Protein 7.3 g/dL (6.6-8.7)
[2022-12-11 09:42] LABS: Anion Gap 14.2 (5-19); Potassium 4.2 mmol/L (3.5-5.1)
[2022-12-11 10:00] VITALS: PULSE 73; RESP 20; O2SAT 96
[2022-12-11 10:00] LABS: SARS Covid-2 Antigen negative (Negative)
[2022-12-11 10:21] LABS: Add Urine Microscopic? NO; Charge for UA Resulting for Rev
--- NOTE | 2022-12-11 10:32 | CT_ITS ---
WS: [id number] CT ABDOMEN AND PELVIS WITH CONTRAST HISTORY: 2 wks v/d TECHNIQUE: Imaging performed of the abdomen and pelvis with IV contrast. Single phase imaging of the abdomen. Coronal and sagittal reformats are submitted. All CT scans at [facility] use at [address] one of these dose optimization techniques: automated exposure control; mA and/or kV adjustment per patient size (includes targeted exams where dose is matched to clinical indication); or iterative re construction. IV CONTRAST: Omnipaque 350; 100 mL IV. Oral contrast: No DLP: 399.27 mGy.cm COMPARISON: 10/13/2021 Lower thorax: Benign partially calcified granuloma LEFT lower lobe. Heart is normal size. No hiatal h ernia. Liver/biliary system: Normal size with no intrahepatic dilatation. Gallbladder: Normal. No gallstones or wall thickening. No pericholecystic fluid. Pancreas: Normal size pancreas and pancreatic duct. No adjacent inflammation. Spleen: Normal size spleen. No mass or infarct. Adrenal glands: Normal. Right kidney: Normal. Left kidney: Normal. Aorta: Normal. Lymphadenopathy: None. Free fluid: None. GI tract: Nondistended stomach. No small bowel obstruction. Numerous foci of increased density scatte red throughout the colon is probably medicinal. The appendix is normal. There are a few scattered div erticula in the distal colon without acute diverticulitis. Abdominal wall: Unremarkable abdominal wall. No hernia. Pelvis: No free fluid or adenopathy within the pelvis. Bones: Unremarkable. CT/CT abdomen pelvis w con* [id number] IMPRESSION: 1. No acute abdominal or pelvic abnormalities are identified. 2. No GI tract obstruction or renal obstruction. 3. Normal appendix. No free fluid.
[2022-12-11] MEDS: orphenadrine 30 mg/mL Inj 2 mL 60 MG IVP (10:41)
[2022-12-11] MEDS: iohexol 350 mg/mL 500 mL Btl (per mL) IV (10:50)
[2022-12-11 10:52] LABS: Bilirubin Urine Neg (Negative); Blood Urine Neg (Negative); Glucose Urine UA Norm (Normal); Ketones Urine Negative (Negative); Leukocyte Esterase Urine Negative (Negative); Nitrate Urine Negative (Negative); Protein Urine Neg (Negative); Urine Appearance Clear (CLEAR); Urine Color Colorless (Yellow); Urobilinogen Urine Norm (Negative); pH Urine 7 (5-7)
[2022-12-11 11:00] VITALS: RESP 18; O2SAT 96
[2022-12-11 12:12] VITALS: PULSE 68; RESP 18; O2SAT 96
== END 2022-12-11 12:13 | disposition home or self-care (01) ==
PROVIDERS: Emergency Provider Physician Assistant; PCP Family Medicine
DX: R11.2 Nausea with vomiting, unspecified (principal); R19.7 Diarrhea, unspecified; Z20.822 Contact with and (suspected) exposure to COVID-19
CPT/HCPCS: 74177; 80053; 81003; 83690; 85025; 85651; 86140; 87426; 96361; 96374; 96375; 99285; J2360; J2405; J7030; Q9967

== ENCOUNTER 2022-12-12 17:56 | Emergency (ER) | payer BC, MEDICAID, SELFPAY ==
[2022-12-12 18:45] LABS: Basophils # 0.1 10^3/uL (0.0-0.1); Basophils % 0.4 %; Eosinophils # 0.1 10^3/uL (0.0-0.8); Eosinophils % 0.4 %; Hematocrit 41.9 % (42.0-52.0); Hemoglobin 14.1 g/dL (11.7-16.6); Lymphocytes # 3.2 10^3/uL (0.8-4.8); Lymphocytes % 27.9 %; Mean Corpuscular HGB Conc 33.7 g/dL (30.0-36.0); Mean Corpuscular Hemoglobin 31.2 pg (28.0-34.0); Mean Corpuscular Volume 92.7 fl (80-94); Mean Platelet Volume 9.3 fL (7.4-10.4); Monocytes # 0.9 10^3/uL (0.2-0.9); Monocytes % 7.9 %; Neutrophils % 63.1 %; Nucleated Red Blood Cells % 0 %; Platelet Count 361 10^3/cmm (130-400); Red Blood Count 4.52 10^6/uL (4.1-5.3); Red Cell Distribution Width 13.5 % (12.1-15.1); White Blood Count 11.4 10^3/uL (4.0-10.0)
[2022-12-12 18:56] VITALS: BMI 25.4
[2022-12-12 19:01] VITALS: BP 131/83; PULSE 90; RESP 18; TEMP 36.7; O2SAT 98
[2022-12-12 19:03] LABS: Alanine Aminotransferase 27 U/L (0-41); Albumin Level 4.9 g/dL (3.5-5.2); Alkaline Phosphatase 65 U/L (40-130); Anion Gap 16.8 (5-19); Aspartate Amino Transferase 39 U/L (0-40); Blood Urea Nitrogen 8 mg/dL (6-20); Calcium 9.4 mg/dL (8.5-10.5); Carbon Dioxide 29 mmol/L (22-29); Chloride 99 mmol/L (98-107); Globulin 2.8 g/dL (1.3-4.6); Glomerular Filtration Rate 96.6 mL/min (90-130); Glucose 80 mg/dL (65-115); Lipase 41 U/L (13-60); Osmolality Calculated 289 mOsm/kg (285-295); Potassium 3.8 mmol/L (3.5-5.1); Sodium 141 mmol/L (136-145); Total Bilirubin 0.4 mg/dL (0.15-1.2); Total Protein 7.7 g/dL (6.6-8.7)
[2022-12-12 19:10] VITALS: BP 135/98; PULSE 94; RESP 16; O2SAT 97
--- NOTE | 2022-12-12 19:16 | USR_ITS ---
PROCEDURE INFORMATION: Exam: US Abdomen, Limited; Right Upper Quadrant Exam date and time: 12/12/2022 8:32 PM Age: 32 years old Clinical indication: Abdominal pain; Generalized; Patient HX: Ruq pain n+v diarrhea x 2 weeks. Normal tbili = 0.4, normal ast = 39, normal alt = 27, normal alkphos = 65, normal lipase = 41 TECHNIQUE: Imaging protocol: Real time ultrasound of the abdomen with image documentation. Limited exam focused on the right upper quadrant. COMPARISON: CT abdomen pelvis w con* [id number] 12/11/2022 10:45 AM FINDINGS: Liver: Normal. No masses. Gallbladder: Normal. No gallstones. There is no gallbladder wall thickening. Biliary ducts: Normal. No stones. No dilation. Pancreas: Visualized pancreas is unremarkable. Right kidney: Normal. No mass. No hydronephrosis. US/US gall bladder [id number] IMPRESSION: No acute findings.
--- NOTE | 2022-12-12 19:27 | ED_ITS ---
HPI - Abdominal Pain General: Chief Complaint: Abdominal Pain Stated Complaint: Abd labs, Abd Pain Time Seen by Provider: 12/12/22 19:06 Source: patient Mode of arrival: ambulatory Limitations: no limitations History of Present Illness: 32-year-old male who states he been having abdominal pain over the last 2 days he was seen here last night had a CT scan was normal along with blood work he states that he had worsening pain in the epigastric and right upper quadrant radiates to his back he had some nausea and vomiting he denies any fevers denies any worsening proving factors. Associated Symptoms: Reports nausea and vomiting; Denies chills, diarrhea, dysuria and fever(s) Review of Systems Const: Reports: change in appetite; Denies: fever(s) or chills ENMT: Denies: throat pain or dental pain Card: Denies: chest pain Resp: Denies: dyspnea GI: Reports: abdominal pain, nausea and vomiting; Denies: diarrhea : Denies: dysuria Musc: Denies: neck pain or back pain Skin/Breast: Denies: rash Neuro: Denies: headache(s) Psych: Denies: depression [place]/Lymph: Denies: easy bruising All/Imm: Denies: urticaria PFSH ED PFSH: Medical History ADD (attention deficit disorder) Depression Primary generalized epilepsy, major Substance use disorder Family History Other CAD (coronary artery disease) Cancer Diabetes Hypertension Stroke Social History Smoking and tobacco status: never smoked Second hand smoke exposure: No Alcohol intake: never Substance/Drug Use: former Current gender identity: Male Physical Exam Const: COMMON NORMALS: no acute distress, patient oriented x3 and healthy appearing HENMT: COMMON NORMALS: normocephalic and atraumatic HEAD & SCALP: normocephalic and atraumatic Eye: COMMON NORMALS: conjunctivae normal CONJUNCTIVA: Yes conjunctivae normal Neck/C-Spine: COMMON NORMALS: full ROM and supple Chest: COMMONS NORMALS: normal inspection of the chest and normal palpation of entire chest wall Resp: COMMON NORMALS: normal respiratory effort, No retractions, No use of accessory muscles and clear to auscultation bilaterally AUSCULTATION: clear to auscultation bilaterally Cardio: COMMON NORMALS: regular rate, regular rhythm and No murmurs present (Cardio) RATE: regular rate RHYTHM: regular rhythm GI: COMMON NORMALS: Normal to inspection, nondistended, normoactive bowel sounds present, Soft to palpation and no masses PALPATION: Yes Soft to pa lpation and Yes Tenderness to palpation present (GI) Details: RUQ Extremity: COMMON NORMALS: normal to inspection and full ROM Neuro: COMMON NORMALS: patient oriented x3, moves all extremities and no focal motor deficits Psych: COMMON NORMALS: mental status grossly normal, Normal thought process present and cooperative THOUGHT PROCESS: Normal thought process present Skin: COMMON NORMALS: no rashes or lesions noted and no wounds GENERAL SKIN EXAM: no rashes or lesions noted Course Vital Signs: Vital signs: Vital Signs Temperature 98.1 F 12/12/22 19:01 Pulse Rate 76 12/12/22 20:00 Respiratory Rate 17 12/12/22 20:00 Blood Pressure 112/72 12/12/22 20:00 Pulse Oximetry 98 12/12/22 20:00 Oxygen Delivery Me thod Room Air 12/12/22 19:01 MDM - Abdominal Pain Medical Decision Making Patient presents here with abdominal pain been going on for 2 weeks his ult rasound here was negative. Patient's blood work here is normal as well we will start him on Protonix along with hydrocodone we will get him follow-up with surgery he is return if worsening he understands agrees to plan. Medical Records I reviewed the patient's medical records. Lab Data I reviewed the patient's lab results. 12/12/22 18:23 12/12/22 18:23 Labs/Radiology: Laboratory Results WBC 11.4 10^3/uL (4.0-10.0) H 12/12/22 18: RBC 4.52 10^6/uL (4.1-5.3) 12/12/22 18: Hgb 14.1 g/dL (11.7-16.6) 12/12/22 18: Hct 41.9 % (42.0-52.0) L 12/12/22 18: MCV 92.7 fl (80-94) 12/12/22 18: MCH 31.2 pg (28.0-34.0) 12/12/22 18: MCHC 33.7 g/dL (30.0-36.0) 12/12/22 18: RDW 13.5 % (12.1-15.1) 12/12/22 18: Plt Count 361 10^3/cmm (130-400) 12/12/22 18: MPV 9.3 fL (7.4-10.4) 12/12/22 18: Neut % (Auto) 63.1 % 12/12/22 18: Lymph % (Auto) 27.9 % 12/12/22 18: [place] % (Auto) 7.9 % 12/12/22 18: Eos % (Auto) 0.4 % 12/12/22 18: Baso % (Auto) 0.4 % 12/12/22: Neut # (Auto) 7.20 10^3/uL (1.8-7.7) 12/12/22 18: Lymph # (Auto) 3.2 10^3/uL (0.8-4.8) 12/12/22 18: [place] # (Auto) 0.9 10^3/uL (0.2-0.9) 12/12/22 18: Eos # (Auto) 0.1 10^3/uL (0.0-0.8) 12/12/22: Baso # (Auto) 0.1 10^3/uL (0.0-0.1) 12/12/22 18: Nucleated RBC % (auto) 0 % 12/12/22 18: Nucleated RBCs # 0.0 /100WBC 12/12/22 18: Sodium 141 mmol/L (136-145) 12/12/22 18: Potassium 3.8 mmol/L (3.5-5.1) 12/12/22 18: Chloride 99 mmol/L (98-107) 12/12/22 18: Carbon Dioxide 29 mmol/L (22-29) 12/12/22 18: Anion Gap 16.8 (5-19) 12/12/22 18: BUN 8 mg/dL (6-20) 12/12/22 18: Creatinine 0.9 mg/dL (0.7-1.2) 12/12/22 18: GFR Calculation 96.6 mL/min (90-130) 12/12/22 18: Glucose 80 mg/dL (65-115) 12/12/22 18: Calculated Osmolality 289 mOsm/kg (285-295) 12/12/22 18: Calcium 9.4 mg/dL (8.5-10.5) 12/12/22 18: Total Bilirubin 0.4 mg/dL (0.15-1.2) 12/12/22 18: AST 39 U/L (0-40) 12/12/22 18: ALT 27 U/L (0-41) 12/12/22 18: Alkaline Phosphatase 65 U/L (40-130) 12/12/22 18: Total Protein 7.7 g/dL (6.6-8.7) 12/12/22 18: Albumin 4.9 g/dL (3.5-5.2) 12/12/22 18: Globulin 2.8 g/dL (1.3-4.6) 12/12/22 18: Lipase 41 U/L (13-60) 12/12/22 18: Urine Color Light yellow (Yellow) 12/12/22 20:24 Urine Appearance Clear (CLEAR) 12/12/22 20:24 Urine pH 6 (5-7) 12/12/22 20:24 Ur Specific [place] 1.010 (1.005-1.030) 12/12/22 20:24 Urine Protein Neg (Negative) 12/12/22 20:24 Urine Glucose (UA) Norm (Normal) 12/12/22 20:24 Urine Ketones Negative (Negative) 12/12/22 20:24 Urine Blood Neg (Negative) 12/12/22 20:24 Urine Nitrate Negative (Negative) 12/12/22 20:24 Urine Bilirubin Neg (Negative) 12/12/22 20:24 Urine Urobilinogen Norm mg/dL (Negative) 12/12/22 20:24 Ur Leukocyte Esterase 1+ (Negative) H 12/12/22 20:24 Urine RBC None /hpf (0-2) 12/12/22 20:24 Urine WBC 5-10 /hpf (0-5) H 12/12/22 20:24 Ur Squamous Epith Cells None /hpf (0-5) 12/12/22 20:24 Amorphous Sediment Not Reportable 12/12/22 20:24 Urine Bacteria Trace /hpf (NONE) 12/12/22 20:24 Discharge Plan Discharge Patient Disposition: Home Clinical Impression: Abdominal pain Condition: Stable Prescriptions: New hydrocodone-acetaminophen 5-325 mg tablet 1 tab PO Q6H PRN (Reason: pain) Qty: 14 0RF ondansetron 4 mg tablet,disintegrating 4 mg PO Q6H PRN (Reason: nausea and vomiting) Qty: 14 0RF Protonix 40 mg tablet,delayed release (DR/EC) 40 mg PO DAILY Qty: 60 0RF No Action triamcinolone acetonide [Kenalog] 40 mg/mL suspension 40 mg intra-articular ONCE Qty: 1 0RF bupivacaine (PF) 0.5 % (5 mg/mL) solution 5 mg intra-articular ONCE Qty: 2 0RF lidocaine (PF) 20 mg/mL (2 %) solution 20 mg IM ONCE Qty: 2 0RF bupropion HCl 75 mg tablet See Rx Instructions .ROUTE .COMPLEX Qty: 30 0RF Rx Instructions: take a-half tab po q am x 8 days then take a whole tab po q AM if tolerated acetaminophen [Tylenol Arthritis Pain] 650 mg tablet extended release 1,300 mg PO Q8H MDD 4000mg PRN (Reason: Pain) fluoxetine 20 mg capsule 60 mg PO DAILY 30 Days Qty: 90 3RF gabapentin 600 mg tablet 600 mg PO BID Qty: 60 5RF levetiracetam 1,000 mg tablet See Rx Instructions .ROUTE .COMPLEX Qty: 60 10RF Dose Instruction: TAKE 1 TABLET BY MOUTH TWICE DAILY (NEEDS APPT. FOR FUTURE REFILLS) Rx Instructions: TAKE 1 TABLET BY MOUTH TWICE DAILY (NEEDS APPT. FOR FUTURE REFILLS) ondansetron 4 mg tablet,disintegrating 4 mg PO Q8H 5 Days Qty: 15 0RF dicyclomine 10 mg capsule 10 mg PO TID Qty: 14 0RF tizanidine 4 mg capsule 4 mg PO Q8H PRN (Reason: muscle spasticity) Qty: 20 0RF Discharge Orders: Discharge ED (Routine); Ordered 12/12/22 Ordered By: Teresa Cannon Referrals: Isaiah Mathur DO [Primary Care Provider] - Jamey Dwyer DO [Physician] - 1-3 days Discharge Diet: Advance as tolerated Discharge Activity: Resume usual activity Patient Instructions: Abdominal Pain (ED) Coding Level of Care Code ED White Lead Grinder for Jose Horvath
[2022-12-12 19:30] VITALS: BP 135/90; PULSE 88; RESP 17; O2SAT 98
[2022-12-12] MEDS: morphine 4 mg/mL SDV 1 mL IVP (19:34)
[2022-12-12] MEDS: ondansetron 2 mg/ML SDV 2 mL 4 MG IVP (19:34)
[2022-12-12] MEDS: sodium chloride 0.9% 1,000 ML 999 ML IV (19:35)
[2022-12-12 20:00] VITALS: BP 112/72; PULSE 76; RESP 17; O2SAT 98
[2022-12-12 21:17] LABS: Add Urine Microscopic? YES; Bacteria Urine TRACE /hpf; Bilirubin Urine Neg (Negative); Blood Urine Neg (Negative); Glucose Urine UA Norm (Normal); Ketones Urine Negative (Negative); Leukocyte Esterase Urine 1+ (Negative); Nitrate Urine Negative (Negative); Protein Urine Neg (Negative); Urine Appearance Clear (CLEAR); Urine Color Light yellow (Yellow); Urobilinogen Urine Norm (Negative); pH Urine 6 (5-7)
[2022-12-12 21:18] LABS: Add Urine Culture? No
--- NOTE | 2022-12-13 09:36 | DCPLANNER ---
Addendum entered by Cherrie Wilkins 01/04/23 10:14: This appointment was rescheduled Addendum entered by Cherrie Wilkins 12/13/22 15:52: Patient has a follow up appointment scheduled for Sunday, January 03, 2023 at 3:[address] Dwyer at general surgery. Original Note: manager environmental services had message to schedule a follow up appointment for patient with general surgery. manager environmental services sent patients information to the front office staff at general surgery. Patients information will be printed and reviewed. Clinic will call patient with appointment information.
== END 2022-12-12 21:54 | disposition home or self-care (01) ==
PROVIDERS: Emergency Provider Emergency Medicine; PCP Family Medicine
DX: R10.11 Right upper quadrant pain (principal)
CPT/HCPCS: 36415; 76705; 80053; 81001; 83690; 85025; 96361; 96374; 96375; 99284; J2270; J2405; J7030

== ENCOUNTER 2023-02-13 17:20 | Emergency (ER) | payer MEDICAID, SELFPAY ==
[2023-02-13] VITALS (8 sets, daily range): BP systolic 124–137; BP diastolic 82–93; PULSE 81–130; RESP 14–18; TEMP 36.7; O2SAT 94–97; BMI 27.8
--- NOTE | 2023-02-13 18:04 | USR_ITS ---
PROCEDURE INFORMATION: Exam: US Scrotum Exam date and time: 02/13/2023 6:50 PM Age: 32 years old Clinical indication: Groin pain and scrotum pain; Prior surgery; Surgery date: 6+ months; Surgery type: Bilateral inguinal hernia repairs as an . Patient HX: History of hernia repairs. ; Additional info: Testicle pain TECHNIQUE: Imaging protocol: Real-time ultrasound of the scrotum and contents with color Doppler and image documentation. COMPARISON: CT abdomen pelvis w con* [id number] 12/11/2022 10:45 AM FINDINGS: Right testicle: Normal. No mass. No torsion. Normal vascular flow. Left testicle: Normal. No mass. No torsion. Normal vascular flow. Epididymides: Epididymal head cyst measuring 4 mm noted on the right. Otherwise unremarkable epididymi. Scrotum/soft tissues: Normal. US/US scrotum [id number] IMPRESSION: No acute findings.
[2023-02-13] MEDS: morphine 4 mg/mL SDV 1 mL IVP (18:15)
--- NOTE | 2023-02-13 18:15 | W.ED.MALEGU ---
HPI - Male Genitourinary General: Chief complaint: Urogenital-Male Stated complaint: Testicle pain Time Seen by Provider: 02/13/23 17:45 Source: patient Mode of arrival: ambulatory Limitations: no limitations History of Present Illness: 32-year-old male states he had sudden onset of right-sided testicle pain rating up in his abdomen. He states he had history of kidney stones he states has been having chronic abdominal pain and vomiting for months. States that pain is sharp in nature and rates it a 8 out of 10 he denies any dysuria denies any penile discharge. Denies any fevers. Associated symptoms: Reports nausea and vomiting; Deny dysuria Review of Systems Const: Denies: fever(s), chills, body aches or change in appetite ENMT: Denies: throat pain or dental pain Card: Denies: chest pain Resp: Denies: dyspnea GI: Reports: abdominal pain, nausea and vomiting; Denies: diarrhea : Reports: testicular pain; Denies: dysuria Musc: Denies: neck pain or back pain Skin/Breast: Denies: rash Neuro: Denies: headache(s) PFSH ED PFSH: Medical History ADD (attention deficit disorder) Depression Primary generalized epilepsy, major Substance use disorder Family History Other CAD (coronary artery disease) Cancer Diabetes Hypertension Stroke Social History Smoking and tobacco status: never smoked Second hand smoke exposure: No Alcohol intake: never Substance/Drug Use: former Current gender identity: Male Physical Exam Const: COMMON NORMALS: no acute distress, patient oriented x3 and healthy appearing HENMT: COMMON NORMALS: normocephalic and atraumatic HEAD & SCALP: normocephalic and atraumatic Eye: COMMON NORMALS: conjunctivae normal CONJUNCTIVA: Yes conjunctivae normal Neck/C-Spine: COMMON NORMALS: full ROM and supple Chest: COMMONS NORMALS: normal inspection of the chest and normal palpation of entire chest wall Resp: COMMON NORMALS: normal respiratory effort Cardio: COMMON NORMALS: regular rate, regular rhythm and No murmurs present (Cardio) RATE: regular rate RHYTHM: regular rhythm GI: COMMON NORMALS: Normal to inspection, nondistended, normoactive bowel sounds present, Soft to palpation and no masses PALPATION: Yes Soft to palpation OTHER: Tenderness in right groin : OTHER: Right testicle tenderness no signs of torsion no hernia noted penile exam normal Extremity: COMMON NORMALS: normal to inspection and full ROM Neuro: COMMON NORMALS: patient oriented x3, moves all extremities and no focal motor deficits Psych: COMMON NORMALS: mental status grossly normal, Normal thought process present and cooperative THOUGHT PROCESS: Normal thought process present Skin: COMMON NORMALS: no rashes or lesions noted and no wounds GENERAL SKIN EXAM: no rashes or lesions noted Course Vital Signs: Vital signs: Vital Signs Temperature 98.1 F 02/13/23 17:25 Pulse Rate 95 02/13/23 18:30 Respiratory Rate 16 02/13/23 19:43 Blood Pressure 125/93 02/13/23 18:30 Pulse Oximetry 96 02/13/23 18:30 Oxygen Delivery Me thod Room Air 02/13/23 17:25 MDM - Male Medical Decision Making Patient presents here with right groin pain his ultrasound of his testicle blood work here is all normal he has no signs of appendicitis he had a CAT scan 2 months ago was normal his white count here is normal his pain is improved we will place him on pain meds get him follow-up with surgery he is return if worsening he understands agrees to plan. Medical Records I reviewed the patient's medical records. Lab Data I reviewed the patient's lab results. 02/13/23 18:14 02/13/23 18:14 Radiology Impressions Scrotum Ultrasound 02/13/23 18:04 IMPRESSION: No acute findings. Laboratory Results WBC 8.2 10^3/uL (4.0-10.0) 02/13/23 18:14 RBC 5.01 10^6/uL (4.1-5.3) 02/13/23 18:14 Hgb 15.8 g/dL (11.7-16.6) 02/13/23 18:14 Hct 46.4 % (42.0-52.0) 02/13/23 18:14 MCV 92.6 fl (80-94) 02/13/23 18:14 MCH 31.5 pg (28.0-34.0) 02/13/23 18:14 MCHC 34.1 g/dL (30.0-36.0) 02/13/23 18:14 RDW 13.2 % (12.1-15.1) 02/13/23 18:14 Plt Count 321 10^3/cmm (130-400) 02/13/23 18:14 MPV 8.9 fL (7.4-10.4) 02/13/23 18:14 Neut % (Auto) 62.8 % 02/13/23 18:14 Lymph % (Auto) 30.3 % 02/13/23 18:14 [place] % (Auto) 5.6 % 02/13/23 18:14 Eos % (Auto) 0.6 % 02/13/23 18:14 Baso % (Auto) 0.5 % 02/13/23 18:14 Neut # (Auto) 5.13 10^3/uL (1.8-7.7) 02/13/23 18:14 Lymph # (Auto) 2.5 10^3/uL (0.8-4.8) 02/13/23 18:14 [place] # (Auto) 0.5 10^3/uL (0.2-0.9) 02/13/23 18:14 Eos # (Auto) 0.1 10^3/uL (0.0-0.8) 02/13/23 18:14 Baso # (Auto) 0.0 10^3/uL (0.0-0.1) 02/13/23 18:14 Nucleated RBC % (auto) 0 % 02/13/23 18:14 Nucleated RBCs # 0.0 /100WBC 02/13/23 18:14 Sodium 135 mmol/L (136-145) L 02/13/23 18:14 Potassium 4.2 mmol/L (3.5-5.1) 02/13/23 18:14 Chloride 97 mmol/L (98-107) L 02/13/23 18:14 Carbon Dioxide 27 mmol/L (22-29) 02/13/23 18:14 Anion Gap 15.2 (5-19) 02/13/23 18:14 BUN 10 mg/dL (6-20) 02/13/23 18:14 Creatinine 0.9 mg/dL (0.7-1.2) 02/13/23 18:14 GFR Calculation 96.6 mL/min (90-130) 02/13/23 18:14 Glucose 93 mg/dL (65-115) 02/13/23 18:14 Calculated Osmolality 279 mOsm/kg (285-295) L 02/13/23 18:14 Calcium 9.2 mg/dL (8.5-10.5) 02/13/23 18:14 Total Bilirubin 0.3 mg/dL (0.15-1.2) 02/13/23 18:14 AST 31 U/L (0-40) 02/13/23 18:14 ALT 28 U/L (0-41) 02/13/23 18:14 Alkaline Phosphatase 73 U/L (40-130) 02/13/23 18:14 Total Protein 7.6 g/dL (6.6-8.7) 02/13/23 18:14 Albumin 4.5 g/dL (3.5-5.2) 02/13/23 18:14 Globulin 3.1 g/dL (1.3-4.6) 02/13/23 18:14 Urine Color Yellow (Yellow) 02/13/23 18:42 Urine Appearance Clear (CLEAR) 02/13/23 18:42 Urine pH 6.5 (5-7) 02/13/23 18:42 Ur Specific [place] 1.005 (1.005-1.030) 02/13/23 18:42 Urine Protein Neg (Negative) 02/13/23 18:42 Urine Glucose (UA) Norm (Normal) 02/13/23 18:42 Urine Ketones Negative (Negative) 02/13/23 18:42 Urine Blood Neg (Negative) 02/13/23 18:42 Urine Nitrate Negative (Negative) 02/13/23 18:42 Urine Bilirubin Neg (Negative) 02/13/23 18:42 Urine Urobilinogen Norm mg/dL (Negative) 02/13/23 18:42 Ur Leukocyte Esterase 2+ (Negative) H 02/13/23 18:42 Urine RBC 0-4 /hpf (0-2) H 02/13/23 18:42 Urine WBC 10-15 /hpf (0-5) H 02/13/23 18:42 Ur Squamous Epith Cells 0-4 /hpf (0-5) H 02/13/23 18:42 Amorphous Sediment Not Reportable 02/13/23 18:42 Urine Bacteria Trace /hpf (NONE) 02/13/23 18:42 Discharge Plan Discharge Patient Disposition: Home Clinical Impression: Abdominal pain, Pain in the groin Condition: Stable Prescriptions: New hydrocodone-acetaminophen 5-325 mg tablet 1 tab PO Q6H PRN (Reason: pain) Qty: 14 0RF ondansetron 4 mg tablet,disintegrating 4 mg PO Q6H PRN (Reason: nausea and vomiting) Qty: 14 0RF No Action triamcinolone acetonide [Kenalog] 40 mg/mL suspension 40 mg intra-articular ONCE Qty: 1 0RF bupivacaine (PF) 0.5 % (5 mg/mL) solution 5 mg intra-articular ONCE Qty: 2 0RF lidocaine (PF) 20 mg/mL (2 %) solution 20 mg IM ONCE Qty: 2 0RF bupropion HCl 75 mg tablet See Rx Instructions .ROUTE .COMPLEX Qty: 30 0RF Rx Instructions: take a-half tab po q am x 8 days then take a whole tab po q AM if tolerated acetaminophen [Tylenol Arthritis Pain] 650 mg tablet extended release 1,300 mg PO Q8H MDD 4000mg PRN (Reason: Pain) fluoxetine 20 mg capsule 60 mg PO DAILY 30 Days Qty: 90 3RF gabapentin 600 mg tablet 600 mg PO BID Qty: 60 5RF levetiracetam 1,000 mg tablet See Rx Instructions .ROUTE .COMPLEX Qty: 60 10RF Dose Instruction: TAKE 1 TABLET BY MOUTH TWICE DAILY (NEEDS APPT. FOR FUTURE REFILLS) Rx Instructions: TAKE 1 TABLET BY MOUTH TWICE DAILY (NEEDS APPT. FOR FUTURE REFILLS) ondansetron 4 mg tablet,disintegrating See Rx Instructions .ROUTE .COMPLEX Qty: 14 0RF Dose Instruction: dissolve one tabet BY MOUTH EVERY 4 HOURS as needed for nausea AND vomiting Rx Instructions: dissolve one tabet BY MOUTH EVERY 4 HOURS as needed for nausea AND vomiting dicyclomine 10 mg capsule 10 mg PO TID Qty: 14 0RF tizanidine 4 mg capsule 4 mg PO Q8H PRN (Reason: muscle spasticity) Qty: 20 0RF hydrocodone-acetaminophen 5-325 mg tablet 1 tab PO Q6H PRN (Reason: pain) Qty: 14 0RF Protonix 40 mg tablet,delayed release (DR/EC) 40 mg PO DAILY Qty: 60 0RF Discharge Orders: Discharge ED (Routine); Ordered 02/13/23 Ordered By: Teresa Cannon Referrals: Isaiah Mathur DO [Primary Care Provider] - Jamey Dwyer DO [Physician] - 1-3 days Discharge Diet: Advance as tolerated Discharge Activity: Resume usual activity Patient Instructions: Abdominal Pain (ED), Opioid Safety Coding Level of Care Code ED Electric Razor Mechanic for Jose Horvath
[2023-02-13] MEDS: ondansetron 2 mg/ML SDV 2 mL 4 MG IVP (18:17)
[2023-02-13 18:24] LABS: Basophils % 0.5 %; Eosinophils # 0.1 10^3/uL (0.0-0.8); Eosinophils % 0.6 %; Hematocrit 46.4 % (42.0-52.0); Hemoglobin 15.8 g/dL (11.7-16.6); Lymphocytes # 2.5 10^3/uL (0.8-4.8); Lymphocytes % 30.3 %; Mean Corpuscular HGB Conc 34.1 g/dL (30.0-36.0); Mean Corpuscular Hemoglobin 31.5 pg (28.0-34.0); Mean Corpuscular Volume 92.6 fl (80-94); Mean Platelet Volume 8.9 fL (7.4-10.4); Monocytes # 0.5 10^3/uL (0.2-0.9); Monocytes % 5.6 %; Neutrophils # 5.13 10^3/uL (1.8-7.7); Neutrophils % 62.8 %; Nucleated Red Blood Cells % 0 %; Platelet Count 321 10^3/cmm (130-400); Red Blood Count 5.01 10^6/uL (4.1-5.3); Red Cell Distribution Width 13.2 % (12.1-15.1); White Blood Count 8.2 10^3/uL (4.0-10.0)
[2023-02-13 18:44] LABS: Alanine Aminotransferase 28 U/L (0-41); Albumin Level 4.5 g/dL (3.5-5.2); Alkaline Phosphatase 73 U/L (40-130); Anion Gap 15.2 (5-19); Aspartate Amino Transferase 31 U/L (0-40); Blood Urea Nitrogen 10 mg/dL (6-20); Calcium 9.2 mg/dL (8.5-10.5); Carbon Dioxide 27 mmol/L (22-29); Chloride 97 mmol/L (98-107); Globulin 3.1 g/dL (1.3-4.6); Glomerular Filtration Rate 96.6 mL/min (90-130); Glucose 93 mg/dL (65-115); Osmolality Calculated 279 mOsm/kg (285-295); Potassium 4.2 mmol/L (3.5-5.1); Sodium 135 mmol/L (136-145); Total Bilirubin 0.3 mg/dL (0.15-1.2); Total Protein 7.6 g/dL (6.6-8.7)
[2023-02-13 19:14] LABS: Add Urine Microscopic? YES; Bacteria Urine TRACE /hpf; Bilirubin Urine Neg (Negative); Blood Urine Neg (Negative); Glucose Urine UA Norm (Normal); Ketones Urine Negative (Negative); Leukocyte Esterase Urine 2+ (Negative); Nitrate Urine Negative (Negative); Protein Urine Neg (Negative); RBC Urine 0-4 /hpf (0-2); Specific Gravity, Urine 1.005 (1.005-1.030); Squamous Epithelial Cell Urine 0-4 /hpf (0-5); Urine Appearance Clear (CLEAR); Urine Color Yellow (Yellow); Urobilinogen Urine Norm (Negative); pH Urine 6.5 (5-7)
[2023-02-13 19:15] LABS: Add Urine Culture? No
[2023-02-13] MEDS: HYDROmorphone 1 mg/mL INJ 1 mL IVP (19:43)
--- NOTE | 2023-02-13 20:36 | PC.NURSE ---
ARREOLA sent home tab with patient. Witnessed with Mayelin SUÁREZ
--- NOTE | 2023-02-14 08:40 | DCPLANNER ---
Addendum entered by Cherrie Wilkins 02/20/23 13:57: recreational vehicle resort manager received the following message from the general surgery clinic regarding follow up appointment: Patient has no insurance & cannot make any promises on being able to pay $100 due to self pay.. He declined appointment for now but will call back... Original Note: recreational vehicle resort manager had message to schedule a follow up appointment for patient with general surgery. recreational vehicle resort manager sent patients information to the front office staff at general surgery. Patients information will be printed and reviewed. Clinic will call patient with appointment information.
== END 2023-02-13 20:40 | disposition home or self-care (01) ==
PROVIDERS: Emergency Provider Emergency Medicine; PCP Family Medicine
DX: R10.31 Right lower quadrant pain (principal)
CPT/HCPCS: 76870; 80053; 81001; 85025; 96374; 96375; 99284; J1170; J2270; J2405

== ENCOUNTER 2023-02-17 12:23 | Emergency (ER) | payer MEDICAID, SELFPAY ==
[2023-02-17 12:24] VITALS: BP 141/105; PULSE 89; O2SAT 97
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
[2023-02-17 13:02] VITALS: BP 141/105; PULSE 81; O2SAT 95
[2023-02-17] MEDS: iohexol 350 mg/mL 500 mL Btl (per mL) IV (13:05)
[2023-02-17] MEDS: fentaNYL 50 mcg/mL INJ 2mL IVP (13:09)
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
[2023-02-17 13:48] VITALS: BP 126/82; PULSE 77; O2SAT 95
[2023-02-17] MEDS: oxyCODONE 5 mg IR Tab/Cap PO (14:31)
[2023-02-17 14:36] VITALS: BP 126/82; PULSE 82; O2SAT 97
== END 2023-02-17 14:37 | disposition home or self-care (01) ==
PROVIDERS: Emergency Provider Emergency Medicine; PCP Family Medicine
DX: M54.6 Pain in thoracic spine (principal); M54.50 Low back pain, unspecified; R07.89 Other chest pain; M25.512 Pain in left shoulder
CPT/HCPCS: 70450; 71260; 72125; 73060; 73090; 74177; 96374; 99285; J3010; Q9967

== ENCOUNTER 2023-04-25 13:23 | Emergency (ER) | payer BC, MEDICAID, SELFPAY ==
[2023-04-25 13:32] VITALS: BP 124/86; PULSE 75; RESP 18; TEMP 36.7; O2SAT 98; BMI 26.6
[2023-04-25 14:09] LABS: Basophils % 0.3 %; Eosinophils % 0.3 %; Hematocrit 45.9 % (37-53); Lymphocytes # 2.4 10^3/uL (0.8-4.8); Lymphocytes % 24.8 %; Mean Corpuscular HGB Conc 34.4 g/dL (30-55); Mean Corpuscular Hemoglobin 32.1 pg (27-33); Mean Corpuscular Volume 93.3 fl (82-101); Mean Platelet Volume 9.1 fL (7.4-10.4); Monocytes # 0.8 10^3/uL (0.2-0.9); Monocytes % 8.3 %; Nucleated Red Blood Cells % 0 %; Platelet Count 321 10^3/cmm (157-399); Red Blood Count 4.92 10^6/uL (3.85-5.65); Red Cell Distribution Width 13.6 % (12.1-15.1); White Blood Count 9.69 10^3/uL (3.29-11.43)
[2023-04-25 14:11] VITALS: RESP 96; O2SAT 96
[2023-04-25] MEDS: morphine 4 mg/mL SDV 1 mL IVP (14:11)
[2023-04-25] MEDS: ondansetron 2 mg/ML SDV 2 mL 4 MG IVP (14:11)
--- NOTE | 2023-04-25 14:28 | ED_ITS ---
HPI - Abdominal Pain General: Chief Complaint: Abdominal Pain Stated Complaint: upper abd pain Time Seen by Provider: 04/25/23 13:38 History of Present Illness: Steven is a 33-year-old male who arrives POV along with to the emergency department. He has a relevant past medical history of chronic back pain on gabapentin, intermittent marijuana usage, daily consumption of beer, anxiety and depression on fluoxetine, insomnia treated with melatonin, and intermittent recurrent episodes of abdominal pain without known cause. Today he states he had another episode of abdominal pain. Typically the episodes cause generalized abdominal discomfort along with nausea, vomiting, and diarrhea. He has had a right upper quadrant ultrasound and CT scan of the abdomen and pelvis with contrast specifically for these ailments. They have come up as unremarkable. He was referred to Dr. Dwyer to consider EGD. He lost his insurance and recently reestablished on Medicaid. Patient cannot identify any aggravating or alleviating factors. No history of abdominal surgeries. Patient adds at the end of our interaction that he is drinking to tweak her shots every day. These are ultra concentrated high caffeine energy drinks with B vitamins. He says it seems to get worse after he drinks these. Associated Symptoms: Denies chills, dysuria, fever(s) and syncope Review of Systems General: Reports: 10 or more systems reviewed and unremarkable except in HPI and below Const: Denies: fever(s), chills or body aches Eyes: Denies: change in vision ENMT: Denies: throat pain Card: Denies: chest pain, edema or syncope Resp: Denies: dyspnea or productive cough : Denies: flank pain, dysuria or urinary frequency Musc: Denies: neck pain, back pain, extremity pain or extremity swelling Skin/Breast: Denies: rash or erythema Neuro: Denies: headache(s), numbness in extremities, weakness in extremities, lack of coordination or difficulty walking PFS ED PFSH: Medical History ADD (attention deficit disorder) Depression Primary generalized epilepsy, major Substance use disorder Family History Other CAD (coronary artery disease) Cancer Diabetes Hypertension Stroke Social History Smoking and tobacco status: never smoked Second hand smoke exposure: No Alcohol intake: never Substance/Drug Use: former Current gender identity: Male Physical Exam Const: COMMON NORMALS: no limitations, alert and well nourished EXAM LIMITATIONS: no altered mental status HENMT: COMMON NORMALS: normocephalic, atraumatic and external ears normal HEAD & SCALP: normocephalic and atraumatic EXTERNAL EAR: Yes external ears normal MOUTH: no muffled voice Eye: COMMON NORMALS: EOMs intact bilaterally, conjunctivae normal and no scleral icterus CONJUNCTIVA: Yes conjunctivae normal Neck/C-Spine: COMMON NORMALS: no JVD GENERAL: Yes normal visual inspection and Yes trachea midline Resp: COMMON NORMALS: normal respiratory effort and No use of accessory muscles Cardio: COMMON NORMALS: no JVD, regular rate and regular rhythm RATE: regular rate RHYTHM: regular rhythm GI: COMMON NORMALS: Soft to palpation PALPATION: Yes Soft to palpation, Yes Tenderness to palpation present (GI) Details: LLQ, RLQ, LUQ, RUQ and other (D iffuse) and Yes Guarding due to palpation present (GI) Extremity: COMMON NORMALS: normal to inspection Neuro: COMMON NORMALS: moves all extremities, no focal motor deficits and no sensory deficits noted SENSORIUM/ORIENTATION: Yes alert SPEECH: speech normal Psych: COMMON NORMALS: mental status grossly normal, Normal thought process present, cooperative and speech normal SPEECH: Yes normal speech THOUGHT PROCESS: Normal thought process present Skin: COMMON NORMALS: no rashes or lesions noted, turgor normal and no jaundice GENERAL SKIN EXAM: no rashes or lesions noted and turgor normal Course Vital Signs: Vital signs: Vital Signs Temperature 98.0 F 04/25/23 13:32 Pulse Rate 75 04/25/23 13:32 Respiratory Rate 96 H 04/25/23 14:11 Blood Pressure 124/86 04/25/23 13:32 Pulse Oximetry 96 04/25/23 14:11 Oxygen Delivery Me thod Room Air 04/25/23 13:32 MDM - Abdominal Pain Medical Decision Making Differential diagnosis includes IBS, gastritis, pancreatitis, hepatobiliary dysfunction, cannabinoid hyperemesis syndrome, food allergy, peptic ulcer disease, constipation with passage of only loose stool, anxiety with somatic symptoms, inflammatory bowel disease, other. Laboratory work-up was unremarkable. Patient's urine drug screen did show opiates, benzodiazepines, marijuana. His urine specimen was given within 5 minutes of getting IV morphine. I doubt that it had time to make its way into the urine at that point. Pain resolved with administration of Zofran and morphine. As he was getting ready to leave he asked for 1 more dose of pain medication. Patient was given Compazine and Benadryl. I have advised him to follow-up as an outpatient, reduce caffeine, alcohol, NSAIDs, fatty foods, marijuana. Started on omeprazole 40 mg daily. Zofran prescription was given. Lab Data 04/25/23 13:57 04/25/23 13:57 Labs/Radiology: Laboratory Results WBC 9.69 10^3/uL (3.29-11.43) 04/25/23 13:57 RBC 4.92 10^6/uL (3.85-5.65) 04/25/23 13:57 Hgb 15.80 g/dL (11.27-16.99) 04/25/23 13:57 Hct 45.9 % (37-53) 04/25/23 13:57 MCV 93.3 fl (82-101) 04/25/23 13:57 MCH 32.1 pg (27-33) 04/25/23 13:57 MCHC 34.4 g/dL (30-55) 04/25/23 13:57 RDW 13.6 % (12.1-15.1) 04/25/23 13:57 Plt Count 321 10^3/cmm (157-399) 04/25/23 13:57 MPV 9.1 fL (7.4-10.4) 04/25/23 13:57 Neut % (Auto) 66.0 % 04/25/23 13:57 Lymph % (Auto) 24.8 % 04/25/23 13:57 [place] % (Auto) 8.3 % 04/25/23 13:57 Eos % (Auto) 0.3 % 04/25/23 13:57 Baso % (Auto) 0.3 % 04/25/23 13:57 Neut # (Auto) 6.40 10^3/uL (1.8-7.7) 04/25/23 13:57 Lymph # (Auto) 2.4 10^3/uL (0.8-4.8) 04/25/23 13:57 [place] # (Auto) 0.8 10^3/uL (0.2-0.9) 04/25/23 13:57 Eos # (Auto) 0.0 10^3/uL (0.0-0.8) 04/25/23 13:57 Baso # (Auto) 0.0 10^3/uL (0.0-0.1) 04/25/23 13:57 Nucleated RBC % (auto) 0 % 04/25/23 13:57 Nucleated RBCs # 0.0 /100WBC 04/25/23 13:57 Sodium 134 mmol/L (136-145) L 04/25/23 13:57 Potassium 4.0 mmol/L (3.5-5.1) 04/25/23 13:57 Chloride 97 mmol/L (98-107) L 04/25/23 13:57 Carbon Dioxide 24 mmol/L (22-29) 04/25/23 13:57 Anion Gap 17.0 (5-19) 04/25/23 13:57 BUN 19 mg/dL (6-20) 04/25/23 13:57 Creatinine 0.8 mg/dL (0.7-1.2) 04/25/23 13:57 GFR Calculation 110.0 mL/min (90-130) 04/25/23 13:57 Glucose 95 mg/dL (65-115) 04/25/23 13:57 Calculated Osmolality 280 mOsm/kg (285-295) L 04/25/23 13:57 Calcium 9.3 mg/dL (8.5-10.5) 04/25/23 13:57 Total Bilirubin 0.7 mg/dL (0.15-1.2) 04/25/23 13:57 AST 19 U/L (0-40) 04/25/23 13:57 ALT 19 U/L (0-41) 04/25/23 13:57 Alkaline Phosphatase 61 U/L (40-130) 04/25/23 13:57 Total Protein 7.6 g/dL (6.6-8.7) 04/25/23 13:57 Albumin 4.8 g/dL (3.5-5.2) 04/25/23 13:57 Globulin 2.8 g/dL (1.3-4.6) 04/25/23 13:57 Lipase 15 U/L (13-60) 04/25/23 13:57 Urine Color Yellow (Yellow) 04/25/23 14:31 Urine Appearance Clear (CLEAR) 04/25/23 14:31 Urine pH 7 (5-7) 04/25/23 14:31 Ur Specific [place] 1.010 (1.005-1.030) 04/25/23 14:31 Urine Protein Neg (Negative) 04/25/23 14:31 Urine Glucose (UA) Norm (Normal) 04/25/23 14:31 Urine Ketones Negative (Negative) 04/25/23 14:31 Urine Blood Neg (Negative) 04/25/23 14:31 Urine Nitrate Negative (Negative) 04/25/23 14:31 Urine Bilirubin Neg (Negative) 04/25/23 14:31 Urine Urobilinogen Norm mg/dL (Negative) 04/25/23 14:31 Ur Leukocyte Esterase Negative (Negative) 04/25/23 14:31 Urine Opiates Screen Positive ng/mL (Negative) H 04/25/23 14:31 Ur Barbiturates Screen Negative ng/mL (Negative) 04/25/23 14:31 Ur Phencyclidine Scrn Negative ng/mL (Negative) 04/25/23 14:31 Ur Amphetamines Screen Negative ng/mL (Negative) 04/25/23 14:31 U Benzodiazepines Scrn Positive ng/mL (Negative) H 04/25/23 14:31 Urine Cocaine Screen Negative ng/mL (Negative) 04/25/23 14:31 U Marijuana (THC) Screen Positive ng/mL (Negative) H 04/25/23 14:31 No radiology studies performed this visit Discharge Plan Discharge Patient Disposition: Home Clinical Impression: Recurrent abdominal pain Condition: Stable Prescriptions: New ondansetron 4 mg tablet,disintegrating 4 mg PO Q8H PRN (Reason: nausea and vomiting) 10 Days Qty: 20 0RF No Action acetaminophen [Tylenol Arthritis Pain] 650 mg tablet extended release 1,300 mg PO Q8H PRN (Reason: Pain) gabapentin 600 mg tablet 600 mg PO BID Qty: 60 5RF Excedrin Extra Strength 250-250-65 mg Tablet 3 tab PO Q6H PRN (Reason: Pain) melatonin 5 mg Capsule 10 mg PO QPM fluoxetine 20 mg capsule 60 mg PO QPM Pepto-Bismol 262 mg Tablet 524 mg PO Q1H PRN (Reason: Stomach Upset) Rx Instructions: do not exceed 8 doses in a 24 hour period Discharge Orders: Discharge ED (Routine); Ordered 04/25/23 Ordered By: Silvestre Ortez Referrals: Isaiah Mathur DO [Primary Care Provider] - 2 weeks (f/u recurrent abdominal pain, vomiting.) Jamey Dwyer DO [Physician] - 1 week (consider endoscopy) Patient Instructions: Abdominal Pain (ED), Opioid Safety, Pain Management Activity Restrictions/Additional Instructions: The cause of your abdominal pain is unclear. Given the chronicity and normal vitals and laboratory values, we think it is unlikely to be an emergent cause. We have recommended that she take omeprazole 40 mg daily from [id number]. A prescription for Zofran has been given. Avoid cigarettes, caffeine, marijuana, and alcohol. Follow-up with Dr. Dwyer and discuss possible endoscopy. Read handout for more information. Coding Level of Care Code ED [employer] for Jose Horvath
[2023-04-25 14:33] LABS: Add Urine Microscopic? NO; Charge for UA Resulting for Rev
[2023-04-25 14:35] LABS: Alanine Aminotransferase 19 U/L (0-41); Albumin Level 4.8 g/dL (3.5-5.2); Alkaline Phosphatase 61 U/L (40-130); Aspartate Amino Transferase 19 U/L (0-40); Blood Urea Nitrogen 19 mg/dL (6-20); Calcium 9.3 mg/dL (8.5-10.5); Carbon Dioxide 24 mmol/L (22-29); Chloride 97 mmol/L (98-107); Globulin 2.8 g/dL (1.3-4.6); Glucose 95 mg/dL (65-115); Lipase 15 U/L (13-60); Osmolality Calculated 280 mOsm/kg (285-295); Sodium 134 mmol/L (136-145); Total Bilirubin 0.7 mg/dL (0.15-1.2); Total Protein 7.6 g/dL (6.6-8.7)
[2023-04-25 14:42] LABS: Bilirubin Urine Neg (Negative); Blood Urine Neg (Negative); Glucose Urine UA Norm (Normal); Ketones Urine Negative (Negative); Nitrate Urine Negative (Negative); Protein Urine Neg (Negative); Urine Appearance Clear (CLEAR); Urine Color Yellow (Yellow); pH Urine 7 (5-7)
[2023-04-25 14:43] LABS: Leukocyte Esterase Urine Negative (Negative); Urobilinogen Urine Norm (Negative)
[2023-04-25 14:49] LABS: Opiate Screen Urine Positive (Negative); THC Screen Urine Positive (Negative)
[2023-04-25 14:50] LABS: Amphetamines Screen Urine Negative (Negative); Barbiturates Screen Urine Negative (Negative); Benzodiazepines Screen Urine Positive (Negative); Cocaine Screen Urine Negative (Negative); PCP Screen Urine Negative (Negative)
[2023-04-25 15:06] VITALS: BP 122/94; PULSE 69; O2SAT 97
[2023-04-25 16:00] VITALS: BP 123/86; PULSE 75; O2SAT 93
[2023-04-25] MEDS: prochlorperazine 10 mg/2 mL Inj 5 MG IVP (16:36)
[2023-04-25] MEDS: diphenhydrAMINE 50 mg/mL SDV 1mL IVP (16:36)
[2023-04-25 16:44] VITALS: BP 132/92; PULSE 81; O2SAT 97
== END 2023-04-25 17:04 | disposition home or self-care (01) ==
PROVIDERS: Emergency Provider Emergency Medicine; PCP Family Medicine
DX: R10.10 Upper abdominal pain, unspecified (principal)
CPT/HCPCS: 80053; 80306; 81003; 83690; 85025; 96374; 96375; 99284; J0780; J1200; J2270; J2405

== ENCOUNTER → 2023-04-29 12:12 | Outpatient (BNVA) | payer BC, MEDICAID, SELFPAY | PROVIDERS: PCP Family Medicine; Visit Provider Family Medicine | DX: J02.9 Acute pharyngitis, unspecified (principal) | CPT/HCPCS: 87071; 87880 ==

== ENCOUNTER 2023-06-18 21:34 | Inpatient (IN) | payer BC, SELFPAY ==
[2023-06-18 21:37] VITALS: BP 143/96; PULSE 97; RESP 16; TEMP 36.7; O2SAT 95
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
[2023-06-18 22:04] LABS: Basophils # 0.1 10^3/uL (0.0-0.1); Basophils % 0.7 %; Eosinophils # 0.1 10^3/uL (0.0-0.8); Eosinophils % 1.2 %; Hematocrit 47.6 % (37-53); Lymphocytes # 2.8 10^3/uL (0.8-4.8); Lymphocytes % 27.6 %; Mean Corpuscular Hemoglobin 32.2 pg (27-33); Mean Corpuscular Volume 94.6 fl (82-101); Mean Platelet Volume 8.7 fL (7.4-10.4); Monocytes # 0.5 10^3/uL (0.2-0.9); Monocytes % 4.8 %; Neutrophils # 6.59 10^3/uL (1.8-7.7); Neutrophils % 65.2 %; Nucleated Red Blood Cells % 0 %; Platelet Count 394 10^3/cmm (157-399); Red Blood Count 5.03 10^6/uL (3.85-5.65); White Blood Count 10.11 10^3/uL (3.29-11.43)
[2023-06-18 22:15] LABS: Alanine Aminotransferase 28 U/L (0-41); Albumin Level 4.9 g/dL (3.5-5.2); Alcohol Level 234 mg/dL (0-10); Alkaline Phosphatase 107 U/L (40-130); Anion Gap 16.9 (5-19); Aspartate Amino Transferase 28 U/L (0-40); Blood Urea Nitrogen 8 mg/dL (6-20); Calcium 9.8 mg/dL (8.5-10.5); Carbon Dioxide 30 mmol/L (22-29); Chloride 100 mmol/L (98-107); Globulin 3.7 g/dL (1.3-4.6); Glucose 107 mg/dL (65-115); Osmolality Calculated 295 mOsm/kg (285-295); Potassium 3.9 mmol/L (3.5-5.1); Sodium 143 mmol/L (136-145); Total Bilirubin 0.3 mg/dL (0.15-1.2); Total Protein 8.6 g/dL (6.6-8.7)
[2023-06-18 22:16] LABS: Acetaminophen < 5.0 ug/mL (10-30); Salicylate < 0.3 mg/dL (3-10)
--- NOTE | 2023-06-18 22:17 | PC.NURSE ---
Security called re: Patient elopement attempt. Pt ran out of room down the [place] toward doors, stating that if he has to stay upstairs he will kill himself. Dr. Nolan able to redirect patient back to room at this time. Security called to ER and sitter at door.
[2023-06-18 22:21] LABS: Add Urine Microscopic? NO; Charge for UA Resulting for Rev
[2023-06-18 22:24] LABS: Bilirubin Urine Neg (Negative); Blood Urine Neg (Negative); Glucose Urine UA Norm (Normal); Ketones Urine Negative (Negative); Leukocyte Esterase Urine Negative (Negative); Nitrate Urine Negative (Negative); Protein Urine Neg (Negative); Urine Appearance Clear (CLEAR); Urine Color Yellow (Yellow); Urobilinogen Urine Norm (Negative); pH Urine 7 (5-7)
--- NOTE | 2023-06-18 22:27 | W.ED.ALCOHOL ---
HPI - Alcohol General: Chief Complaint: Alcohol Stated Complaint: ETOH Time Seen by Provider: 06/18/23 21:46 History of Present Illness: Patient arrives after being found unresponsive in the bathroom where he [facility] [employer]. States he was drinking today gas he passed out. Patient does admit that he is an alcoholic and a drug addict. Patient does admit to taking Percocet at home before he went to work. Patient states he has had thoughts of suicide today. However when talking to him about this he recanted his statement and then denied ever having these thoughts because he does not want to be placed in a 96-hour hold. Review of Systems General: Reports: 10 or more systems reviewed and unremarkable except in HPI and below PFSH ED PFSH: Medical History ADD (attention deficit disorder) Depression Primary generalized epilepsy, major Substance use disorder Family History Other CAD (coronary artery disease) Cancer Diabetes Hypertension Stroke Social History Smoking and tobacco/nicotine status: never used tobacco/nicotine Second hand smoke exposure: No Alcohol intake: never Substance/Drug Use: former Current gender identity: Male Physical Exam Const: COMMON NORMALS: no acute distress, average body habitus, patient oriented x3, no limitations, healthy appearing, alert and well nourished HENMT: COMMON NORMALS: normocephalic, atraumatic, hearing grossly normal bilaterally, external ears normal, Normal external nose present, moist oral mucous membranes and oropharynx normal HEAD & SCALP: normocephalic and atraumatic NOSE: Normal external nose present EXTERNAL EAR: Yes external ears normal Neck/C-Spine: COMMON NORMALS: full ROM, no lymphadenopathy, supple, no meningeal signs, no JVD and Thyroid normal THYROID: Thyroid normal Chest: COMMONS NORMALS: normal inspection of the chest and normal palpation of entire chest wall Resp: COMMON NORMALS: normal respiratory effort, No retractions, No use of accessory muscles and clear to auscultation bilaterally AUSCULTATION: clear to auscultation bilaterally Cardio: COMMON NORMALS: no JVD, regular rate, regular rhythm, S1 normal heart sound present, S2 normal heart sound present, No gallops present (Cardio), No clicks present (Cardio), No murmurs present (Cardio) and No rub (Cardio) RATE: regular rate RHYTHM: regular rhythm HEART SOUNDS: S1 normal heart sound present and S2 normal heart sound present GI: COMMON NORMALS: Normal to inspection, nondistended, normoactive bowel sounds present, Soft to palpation, non-tender, No hepatosplenomegaly present and no masses PALPATION: Yes Soft to palpation and Yes No hepatosplenomegaly present Neuro: COMMON NORMALS: patient oriented x3 SENSORIUM/ORIENTATION: Yes alert MENINGEAL SIGNS: Yes no meningeal signs Course Vital Signs: Vital signs: Vital Signs Temperature 98.2 F 06/19/23 14:00 Pulse Rate 103 H 06/19/23 14:00 Respiratory Rate 18 06/19/23 14:00 Blood Pressure 147/82 06/19/23 14:00 Pulse Oximetry 99 06/19/23 14:00 Oxygen Delivery Me thod Room Air 06/19/23 01:33 MDM - Alcohol Medical Decision Making patient presented to the ER with complaints of suicidal ideation as well as alcohol intoxication and prescription drug abuse. During the psychiatric work-up patient decided that he was going to stay nor allow us to 96-hour hold him so he tried to escape by running toward the door 2 or 3 times. Patient blatantly stated in front of myself, nursing, security that if we 96 therapy would kill himself by jumping out the window. Patient was then given 50 of Benadryl 5 of Haldol and 2 of Ativan IM which calmed pressure down and he is sleeping soundly now. Dr. Burnett was consulted who agreed to accept the patient to [facility] for further evaluation and treatment. Differential Diagnosis Likely alcohol intoxication; Unlikely alcohol withdrawal delirium, hypomagnesemia, alcohol ketoacidosis, alcohol withdrawal syndrome or alcohol withdrawal seizure Medical Records I reviewed the patient's medical records. Lab Data I reviewed the patient's lab results. 06/18/23 21:43 06/18/23 21:43 Laboratory Results WBC 10.11 10^3/uL (3.29-11.43) 06/18/23 21:43 RBC 5.03 10^6/uL (3.85-5.65) 06/18/23 21:43 Hgb 16.20 g/dL (11.27-16.99) 06/18/23 21:43 Hct 47.6 % (37-53) 06/18/23 21:43 MCV 94.6 fl (82-101) 06/18/23 21:43 MCH 32.2 pg (27-33) 06/18/23 21:43 MCHC 34.0 g/dL (30-55) 06/18/23 21:43 RDW 13.0 % (12.1-15.1) 06/18/23 21:43 Plt Count 394 10^3/cmm (157-399) 06/18/23 21:43 MPV 8.7 fL (7.4-10.4) 06/18/23 21:43 Neut % (Auto) 65.2 % 06/18/23 21:43 Lymph % (Auto) 27.6 % 06/18/23 21:43 [place] % (Auto) 4.8 % 06/18/23 21:43 Eos % (Auto) 1.2 % 06/18/23 21:43 Baso % (Auto) 0.7 % 06/18/23 21:43 Neut # (Auto) 6.59 10^3/uL (1.8-7.7) 06/18/23 21:43 Lymph # (Auto) 2.8 10^3/uL (0.8-4.8) 06/18/23 21:43 [place] # (Auto) 0.5 10^3/uL (0.2-0.9) 06/18/23 21:43 Eos # (Auto) 0.1 10^3/uL (0.0-0.8) 06/18/23 21:43 Baso # (Auto) 0.1 10^3/uL (0.0-0.1) 06/18/23 21:43 Nucleated RBC % (auto) 0 % 06/18/23 21:43 Nucleated RBCs # 0.0 /100WBC 06/18/23 21:43 Sodium 143 mmol/L (136-145) 06/18/23 21:43 Potassium 3.9 mmol/L (3.5-5.1) 06/18/23 21:43 Chloride 100 mmol/L (98-107) 06/18/23 21:43 Carbon Dioxide 30 mmol/L (22-29) H 06/18/23 21:43 Anion Gap 16.9 (5-19) 06/18/23 21:43 BUN 8 mg/dL (6-20) 06/18/23 21:43 Creatinine 0.9 mg/dL (0.7-1.2) 06/18/23 21:43 GFR Calculation 96.0 mL/min (90-130) 06/18/23 21:43 Glucose 107 mg/dL (65-115) 06/18/23 21:43 Calculated Osmolality 295 mOsm/kg (285-295) 06/18/23 21:43 Calcium 9.8 mg/dL (8.5-10.5) 06/18/23 21:43 Total Bilirubin 0.3 mg/dL (0.15-1.2) 06/18/23 21:43 AST 28 U/L (0-40) 06/18/23 21:43 ALT 28 U/L (0-41) 06/18/23 21:43 Alkaline Phosphatase 107 U/L (40-130) 06/18/23 21:43 Total Protein 8.6 g/dL (6.6-8.7) 06/18/23 21:43 Albumin 4.9 g/dL (3.5-5.2) 06/18/23 21:43 Globulin 3.7 g/dL (1.3-4.6) 06/18/23 21:43 Urine Color Yellow (Yellow) 06/18/23 22:17 Urine Appearance Clear (CLEAR) 06/18/23 22:17 Urine pH 7 (5-7) 06/18/23 22:17 Ur Specific [place] 1.010 (1.005-1.030) 06/18/23 22:17 Urine Protein Neg (Negative) 06/18/23 22:17 Urine Glucose (UA) Norm (Normal) 06/18/23 22:17 Urine Ketones Negative (Negative) 06/18/23 22:17 Urine Blood Neg (Negative) 06/18/23 22:17 Urine Nitrate Negative (Negative) 06/18/23 22:17 Urine Bilirubin Neg (Negative) 06/18/23 22:17 Urine Urobilinogen Norm mg/dL (Negative) 06/18/23 22:17 Ur Leukocyte Esterase Negative (Negative) 06/18/23 22:17 Salicylates < 0.3 mg/dL (3-10) L 06/18/23 21:43 Urine Opiates Screen Negative ng/mL (Negative) 06/18/23 22:17 Acetaminophen < 5.0 ug/mL (10-30) L 06/18/23 21:43 Ur Barbiturates Screen Negative ng/mL (Negative) 06/18/23 22:17 Ur Phencyclidine Scrn Negative ng/mL (Negative) 06/18/23 22:17 Ur Amphetamines Screen Negative ng/mL (Negative) 06/18/23 22:17 U Benzodiazepines Scrn Positive ng/mL (Negative) H 06/18/23 22:17 Urine Cocaine Screen Negative ng/mL (Negative) 06/18/23 22:17 U Marijuana (THC) Screen Positive ng/mL (Negative) H 06/18/23 22:17 Ethyl Alcohol 234 mg/dL (0-10) H 06/18/23 21:43 No radiology studies performed this visit Discharge Plan Discharge Patient Disposition: Admitted As Inpatient Admit Provider: Wicho Burnett Clinical Impression: Substance use disorder, Alcoholic intoxication, Suicide ideation Condition: Stable Coding Level of Care Code ED [employer] for Jose Horvath
[2023-06-18 22:33] LABS: Amphetamines Screen Urine Negative (Negative); Barbiturates Screen Urine Negative (Negative); Benzodiazepines Screen Urine Positive (Negative); Cocaine Screen Urine Negative (Negative); Opiate Screen Urine Negative (Negative); PCP Screen Urine Negative (Negative); THC Screen Urine Positive (Negative)
[2023-06-18] MEDS: LORazepam 2 mg/mL INJ 1 mL IM (23:13)
[2023-06-18] MEDS: diphenhydrAMINE 50 mg/mL SDV 1mL IM (23:14)
[2023-06-18] MEDS: haloperidol inj 5 mg/mL INJ 1 mL (23:14)
--- NOTE | 2023-06-18 23:30 | PC.NURSE ---
96 HOUR HOLD Pt placed on 96 Hour Hold by this nurse and security. All questions answered. Pt placed in paper scrubs, and room stripped.
--- NOTE | 2023-06-18 23:37 | PC.NURSE ---
PT GOT ESCALATED AND TRIED TO RUN OUT OF HIS ROOM. SECURITY ESCORTED PT BACK TO ROOM. PT STATED IF WE KEPT HIM HERE HE WOULD SLIT HIS WRISTS PT ALSO STATED IF HE HAS TO GO UPSTAIRS OR IS PLACED ON A HOLD HE WILL KILL HIIMSELF OR JUMP OUT THE WINDOW. PT STATES HE DOESNT NEED TO BE HERE. PT DIRECTED BACK INTO BED AND CONSENTED TO BE MEDICATED PER DOCTORS ORDERS. PT THEN WILLINGLY ALLOWED HIS BELONGINGS TO BE TAKEN AND DRESSED INTO PAPER SCRUBS. PT NOW RESTING IN BED WITH EVEN, UNLABORED RESPIRATIONS WITH PATENT AIRWAY.
[2023-06-19 00:33] VITALS: PULSE 103; O2SAT 91
[2023-06-19 00:49] VITALS: BP 99/66
--- NOTE | 2023-06-19 00:59 | PC.NURSE ---
Verbal order taken from ER physician to overide in pyxis: 50 mg IM Benadryl ONCE 5 mg IM Haldol ONCE 2 mg IM Ativan ONCE Pt irate, yelling at staff and escalating physically. Security and House Sup at bedside.
[2023-06-19 01:15] LABS: Alcohol Level 172 mg/dL (0-10)
[2023-06-19 01:30] VITALS: BP 125/84; PULSE 86; RESP 16; TEMP 36.9; O2SAT 93
--- NOTE | 2023-06-19 01:45 | PC.NURSE ---
PT ARRIVED FROM ER VERY SEDATED AT 0130 AM. PT OBSERVED FALLING OVER ON THE BENCH. UNABLE TO ANSWER QUESTIONS OR STAY AWAKE. PT DRESSED OUT, WANDED AND SKIN ASSESSMENT COMPLETED WHICH REVEALS ONE MODERATE SCRATCH TO LEFT ELBOW. PT WAS THEN ASSISTED TO BED IN 170. FALL MAT PLACED TO SIDE OF BED DUE TO PT BEING A FALL RISK. WILL ATTEMPT TO COMPLETE ASSESSMENTS WHEN PT AWAKENS AND IS ALERT.
--- NOTE | 2023-06-19 03:21 | PC.NURSE ---
UPON INVENTORY RN/NT FOUND 4 GABAPENTIN 600 MG TABLETS, WILL PLACE IN PIXIS TO GIVE TO PT ONCE DISCHARGED.
[2023-06-19 06:00] VITALS: RESP 16
[2023-06-19] MEDS: folic acid 1 mg Tablet PO (08:20)
[2023-06-19] MEDS: thiamine 100 mg Tablet PO (08:20)
[2023-06-19] MEDS: multivitamin therapeutic Tablet 1 TAB PO (08:20)
[2023-06-19] MEDS: acetaminophen 325 mg Tablet 650 MG PO (08:21)
[2023-06-19] MEDS: LORazepam 2 mg Tablet PO ×3 (08:21→19:18)
[2023-06-19] MEDS: ondansetron 4 MG Tablet PO ×3 (08:21→18:39)
--- NOTE | 2023-06-19 08:31 | PC.NURSE ---
PT CURRENTLY DENIES SI/HI/AH/VH. PT RATES HIS ANXIETY A 7/10 ON A SCALE OF 0-10 WHERE 0 MEANS NONE AND 10 MEANS THE WORST. PT COMPLAINED OF EXPERIENCING DETOX SYMPTOMS. PT SCORED A 20 ON THE [place] PROTOCOL AND WAS GIVEN MEDICATIONS ACCORDING TO THE PROTOCOL. PT WAS WILLING AND COOPERATIVE WITH ASSESSMENT AND MEDICATIONS. PT CURRENT NEEDS ARE MET AT THIS TIME.
--- NOTE | 2023-06-19 11:52 | PC.OT ---
OT EVAL ATTEMPTED 06/19/2023; WILL ATTEMPT AGAIN AT LATER TIME.
--- NOTE | 2023-06-19 13:31 | PC.NURSE ---
PT WAS FOUND IN PASSED OUT IN THE BATHROOM AT [facility]. PT WAS BROUGHT TO THE ED. PT BECAME AGITATED IN THE ED AND REQUIRED SEDATION. UPON ASSESSMENT PT ADMITS TO DRINKING 24 BEERS A DAY AND TAKING AT LEAST 10 10MG PERCOCETS A DAY. PT STATES THAT HE DOES NOT WANT TO RELY ON ALCOHOL OR PILLS TO LIVE HIS LIFE. PT STATED THAT HE WOULD LIKE HELP GETTING CLEAN.
[2023-06-19 14:00] VITALS: BP 147/82; PULSE 103; RESP 18; TEMP 36.8; O2SAT 99
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
[2023-06-19] MEDS: fixodent 39 gm Tube 1 APPLIC DENTAL (18:39)
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
--- NOTE | 2023-06-19 19:21 | P.NPUHP_ITS ---
Providers/Chief Complaint Admitting Physician: Wicho Burnett MD Primary Care Provider: Isaiah Mathur DO Chief Complaint: ETOH HPI NPU History of Present Illness Steven Ricardo is a 33 year old male Meds NPU Home Medications Medication Instructions Recorded Confirmed Last Taken Type acetaminophen 650 mg 1,300 mg PO Q8H PRN Pain 09/18/19 06/19/23 Unknown History tablet,extended release (Tylenol Arthritis Pain) bismuth subsalicylate 262 mg 524 mg PO Q1H PRN Stomach Upset 02/17/23 06/19/23 04/24/23 History tablet (Pepto-Bismol) melatonin 5 mg capsule 10 mg PO QPM 02/17/23 06/19/23 04/24/23 History jjzihcw-wgwzghzatdtwn-hmdpquga 250 3 tab PO Q6H PRN Pain 04/25/23 06/19/23 04/25/23 History mg-250 mg-65 mg tablet (Excedrin Extra Strength) fluoxetine 20 mg capsule See Rx Instructions .Route 04/30/23 06/19/23 Unknown Rx .COMPLEX #90 caps gabapentin 600 mg tablet 600 mg PO BID #60 tabs 04/30/23 06/19/23 Unknown Rx Allergies Allergy/AdvReac Type Severity Reaction Status Date / Time NSAIDS (Non-Steroidal Allergy Intermediate hives Verified 06/19/23 01:20 Anti-Inflamma urinating orange prednisone Allergy ALGY-Anaphy Verified 06/19/23 01:20 laxis azithromycin AdvReac rash Verified 06/19/23 01:20 PFSH NPU PFSH: Medical History ADD (attention deficit disorder) Depression Primary generalized epilepsy, major Substance use disorder Family History Other CAD (coronary artery disease) Cancer Diabetes Hypertension Stroke Social History Smoking and tobacco/nicotine status: never used tobacco/nicotine Second hand smoke exposure: No Alcohol intake: never Substance/Drug Use: former Current gender identity: Male Mental Status Exam MSE Comments: This is a well-nourished well-developed white male with poor grooming and limited eye contact. There is no evidence of any abnormal involuntary motor movements tics or tremors appreciated. He was cooperative with exam in mild to moderate distress. Speech was normal rate decreased volume. Mood described as depressed. Affect was restricted in range and mood congruent Thought process linear. Thought content: Patient endorsed suicidal ideation but denied homicidal ideation. No delusions reported. He did not appear to be responding to internal stimuli. His pupils were dilated and piloerection of arms present. He had complaints of abdominal pain. He Attention and concentration were l imited and memory was unreliable but none were formally tested. He is alert and oriented x3. Insight and judgment are limited.his impulse control is poor. Vitals/I&O/Wt Last Vital Signs Temp 98.2 F 06/19/23 14:00 Pulse 103 H 06/19/23 14:00 Resp 18 06/19/23 14:00 BP 147/82 06/19/23 14:00 Pulse Ox 99 06/19/23 14:00 O2 Del Method Room Air 06/19/23 01:33 Weight last 48 hrs Weight 74.389 kg Data NPU 06/18/23 21:43 06/18/23 21:43 Involuntary Hold Information 96 Hour Hold: 96 Hour Involuntary Admission: Yes 96 Hour Hold Ending Date: 06/25/23 96 Hour Hold Ending Time: 22:40 Coding Level of Care Code Acute Code for Chg Fwd Diagnoses
[2023-06-19] MEDS: buprenorphine-naloxone 4-1 mg Film 2 EACH SUBLINGUAL (20:36)
[2023-06-19 20:54] VITALS: BP 132/92; PULSE 103; RESP 18; TEMP 36.7; O2SAT 96
--- NOTE | 2023-06-19 21:22 | PC.NURSE ---
UP TO NURSES STATION FREQUENTLY DEMANDING MULTIPLE THINGS AT ONCE. CONTINUES TO BE FIXATED ON GETTING AN HIV AND HEP C TESTING DONE. NOTIFIED DR. AMADOR NEW ORDERS RECEIVED TO COLLECT HIV AND HEP C TEST FOR AM. PT ENDORSES HAVING A FEW SUICIDAL THOUGHTS TODAY WITH NO PLAN, THEIR JUST PASSING THOUGHTS. CONTRACTED FOR SAFETY AND AGREES TO COME AND TALK TO STAFF IF THOUGHTS PERSISTS. DENIES HI AND AVH AT THIS TIME. REPORTS ANXIETY 5/10 AND DEPRESSION 9/10. STATES HE REALLY WANTS TO GET HELP THIS TIME AND HE IS APPRECIATIVE OF THE STAFF HELPING HIM. PT WAS ENCOURAGED TO CONTINUE TO ENGAGE IN TREATMENT PLAN AND MEDICATIONS. TOOK MEDICATIONS WITHOUT ISSUE. ALL QUESTIONS ANSWERED AND SUPPORT WAS VOICED.
[2023-06-20] MEDS: acetaminophen 325 mg Tablet 650 MG PO ×4 (02:52→17:27)
[2023-06-20] MEDS: ondansetron 4 MG Tablet PO ×2 (02:52→08:15)
[2023-06-20] MEDS: LORazepam 2 mg Tablet PO ×3 (02:52→12:33)
--- NOTE | 2023-06-20 02:54 | PC.NURSE ---
PT UP TO NURSES STATION RN OBSERVED PT VISIBLY HAVING TREMORS, SWEATING, ANXIETY AND REPORTED HEADACHE, NAUSEA, ANXIETY. [facility] COMPLETED PT SCORED 13. ATIVAN 2 MG PO GIVEN PER [facility] PROTOCOL. 650 MG OF TYLENOL GIVEN FOR HEADACHE 04/08. ZOFRAN 4 MG GIVEN FOR REPORTED NAUSEA. PT WAS GIVEN A DRINK AND SNACK AND THEN HE WENT BACK TO HIS ROOM TO REST.
[2023-06-20 06:00] VITALS: BP 115/77; PULSE 87; RESP 15; O2SAT 95
[2023-06-20] MEDS: buprenorphine-naloxone 4-1 mg Film 2 EACH SUBLINGUAL ×3 (08:15→20:04)
[2023-06-20] MEDS: gabapentin 300 mg Capsule 600 MG PO ×2 (08:15→20:05)
[2023-06-20] MEDS: multivitamin therapeutic Tablet 1 TAB PO (08:15)
[2023-06-20] MEDS: thiamine 100 mg Tablet PO (08:15)
[2023-06-20] MEDS: fluoxetine 20 mg Capsule 60 MG PO (08:15)
[2023-06-20] MEDS: folic acid 1 mg Tablet PO (08:15)
--- NOTE | 2023-06-20 08:18 | PC.NURSE ---
prn ZOFRAN 4 MG GIVEN PO PER PT C/O STATED NAUSEA
--- NOTE | 2023-06-20 11:25 | PC.OT ---
MULTIPLE ATTEMPTS MADE 06/20/2023 FOR OT EVALUATION; WILL ATTEMPT AT LATER DATE.
[2023-06-20 14:00] VITALS: BP 133/85; PULSE 98; RESP 18; TEMP 36.4; O2SAT 94
[2023-06-20] MEDS: hyDROXYzine 25 mg Capsule 50 MG PO (16:04)
--- NOTE | 2023-06-20 16:05 | PC.NURSE ---
PRN VISTARIL 50 MG GIVEN PO PER PT C/O STATED ANXIETY, SPECIFICALLY ASKING FOR ATIVAN BUT DOES NOT SCORE ON CIWA TO RECEIVE PRN ATIVAN CURRENTLY.
--- NOTE | 2023-06-20 18:24 | W.PM.NPUPNS ---
Subjective NPU Subjective: 33-year-old male history of opiate dependence and alcohol dependence currently admitted with suicidal ideation. He reported less opiate withdrawal symptoms with the initiation of Suboxone. He reported no side effects from his Suboxone. He had continued to report some acute discomfort from his withdrawal from alcohol. He had received Ativan for alcohol withdrawal. He had denied any recent seizures. He had reported improved sleep. He had expressed desire to receive outpatient treatment for opiate dependence. He had reported some diminishment with pain with initiation of Suboxone. Mental Status Exam MSE Comments: This is a well-nourished well-developed white male with poor grooming and limited eye contact. There is no evidence of any abnormal involuntary motor movements tics or tremors appreciated. He was cooperative with exam in mild distress. Speech was normal rate decreased volume. Mood described as depressed. Affect was restricted in range and mood congruent Thought process linear. Thought content: Patient endorsed no suicidal ideation or homicidal ideation. No delusions reported. He did not appear to be responding to internal stimuli. He Attention and concentration were limited and memory was unreliable but none were formally tested. He is alert and oriented x3. Insight and judgment are limited. His impulse control is poor. Vitals/I&O/Wt Last Vital Signs Temp 97.6 F 06/20/23 14:00 Pulse 98 06/20/23 14:00 Resp 18 06/20/23 14:00 BP 133/85 06/20/23 14:00 Pulse Ox 94 06/20/23 14:00 O2 Del Method Room Air 06/20/23 14:00 Weight last 48 hrs Weight 74.389 kg Data NPU 06/18/23 21:43 06/18/23 21:43 A&P Assessment and plan (1) Depression: Qualifiers: Depression Type: major depressive disorder Major depression recurrence: recurrent Active/Remission status: currently active Major depression episode severity: mild Qualified Code(s): F33.0 - Major depressive disorder, recurrent, mild (2) Alcohol dependence: (3) Opioid dependence: (4) Chronic neck pain: (5) ADHD: (6) Suicide ideation: Plan 33-year-old male with a history of alcohol abuse and opiate dependence currently in opiate withdrawal while reporting suicidal ideation and worsening depression. #1. We will restart gabapentin melatonin and Prozac as prescribed. #2 therapeutic observation 15-minute checks on the unit. #3 Encourage individual milieu and group therapy. #4 Consider dual diagnosis treatment, #5 Will attempt to gather collateral information #6 Increase Suboxone 8mg/2mg tid #7 CIWA protocol, monitor for ETOH withdrawal. Involuntary Hold Information 96 Hour Hold: 96 Hour Involuntary Admission: No 96 Hour Hold Ending Date: 06/25/23 96 Hour Hold Ending Time: 22:40 Attestations NPU Medical Necessity Statement*: Inpatient hospitalization is medically necessary and deemed to be the clinically appropriate intervention at this time. Medications will be adjusted and initiated as indicated. The patient's likely length of stay is 1-2 days. Coding Level of Care Code Acute Code for g Fwd Diagnoses Depression F33.0 Depression Type: major depressive disorder Major depression recurrence: recurrent Active/Remission status: currently active Major depression episode severity: mild Alcohol dependence F10.20 Opioid dependence F11.20 Chronic neck pain M54.2; G89.29 ADHD F90.9 Suicide ideation R45.856
[2023-06-20 20:35] VITALS: BP 123/87; PULSE 80; RESP 16; TEMP 36.6; O2SAT 96
[2023-06-20] MEDS: OLANZapine 5 mg ODT PO (23:58)
[2023-06-21] MEDS: acetaminophen 325 mg Tablet 650 MG PO (05:47)
[2023-06-21 06:00] VITALS: BP 105/69; PULSE 83; RESP 18; TEMP 36.8; O2SAT 93
[2023-06-21] MEDS: buprenorphine-naloxone 4-1 mg Film 2 EACH SUBLINGUAL ×2 (08:05→14:10)
[2023-06-21] MEDS: fluoxetine 20 mg Capsule 60 MG PO (08:05)
[2023-06-21] MEDS: folic acid 1 mg Tablet PO (08:05)
[2023-06-21] MEDS: multivitamin therapeutic Tablet 1 TAB PO (08:05)
[2023-06-21] MEDS: thiamine 100 mg Tablet PO (08:05)
[2023-06-21] MEDS: gabapentin 300 mg Capsule 600 MG PO (08:05)
[2023-06-21] MEDS: LORazepam 2 mg Tablet PO ×2 (08:10→16:00)
[2023-06-21 09:05] VITALS: BP 105/69; PULSE 83; RESP 18; TEMP 36.8; O2SAT 93
[2023-06-21 14:00] VITALS: BP 133/92; PULSE 97; RESP 18; TEMP 36.3; O2SAT 94
[2023-06-21] MEDS: nicotine 4 mg lozenge MUCOUS MEM (15:08)
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
[2023-06-21 15:53] VITALS: BP 133/92; PULSE 97; RESP 18; TEMP 36.3; O2SAT 94
== END 2023-06-21 16:49 | disposition home or self-care (01) | DRG 885 ==
LOC: ER 23:56 → NP 06-19 00:45
PROVIDERS: Admitting Provider Psychiatry & Neurology Psychiatry; Emergency Provider Emergency Medicine; PCP Family Medicine; Visit Provider Psychiatry & Neurology Psychiatry
DX: F33.0 Major depressive disorder, recurrent, mild (principal); R45.851 Suicidal ideations; F11.23 Opioid dependence with withdrawal; F90.9 Attention-deficit hyperactivity disorder, unspecified type; G40.409 Other generalized epilepsy and epileptic syndromes, not intractable, without status epilepticus; G89.29 Other chronic pain; M54.2 Cervicalgia; Z56.0 Unemployment, unspecified; F10.229 Alcohol dependence with intoxication, unspecified; Y90.7 Blood alcohol level of 200-239 mg/100 ml; Z81.1 Family history of alcohol abuse and dependence; Z81.8 Family history of other mental and behavioral disorders; Z81.3 Family history of other psychoactive substance abuse and dependence
CPT/HCPCS: 80053; 80306; 80307; 81003; 85025; 96372; 99285; J0573; J1200; J1630; J2060; Q0162

== ENCOUNTER 2023-07-06 15:46 | Inpatient (IN) | payer BC, SELFPAY ==
--- NOTE | 2023-07-06 16:01 | W.ED.PSYCHS ---
HPI - Psych General: Chief Complaint: Psychiatric Symptoms Stated Complaint: SI Time Seen by Provider: 07/06/23 15:47 Source: patient Mode of arrival: ambulatory Limitations: no limitations History of Present Illness: 33-year-old male who is here from the crisis center for suicidal ideations patient does abuse methadone along with alcohol states that he has been having suicidal thoughts for the last 2 days. He had a plan to kill himself by drowning himself. He denies any worsening proving factors. Associated symptoms: Reports depression and suicidal ideation Review of Systems Const: Denies: fever(s), chills, body aches or change in appetite ENMT: Denies: throat pain or dental pain Card: Denies: chest pain Resp: Denies: dyspnea GI: Denies: abdominal pain, nausea, vomiting or diarrhea : Denies: dysuria Musc: Denies: neck pain or back pain Skin/Breast: Denies: rash Neuro: Denies: headache(s) Psych: Reports: depression and suicidal ideation [facility] ED PFSH: Medical History Psychiatric care Substance use disorder Depression ADD (attention deficit disorder) Primary generalized epilepsy, major Family History Other CAD (coronary artery disease) Cancer Diabetes Hypertension Stroke Social History Smoking and tobacco/nicotine status: never used tobacco/nicotine Second hand smoke exposure: No Alcohol intake: never Substance/Drug Use: former Current gender identity: Male Physical Exam Const: COMMON NORMALS: patient oriented x3 OTHER: appears intoxicated HENMT: COMMON NORMALS: normocephalic and atraumatic HEAD & SCALP: normocephalic and atraumatic Eye: COMMON NORMALS: Equal, round and reactive pupils present and EOMs intact bilaterally PUPIL: Yes Equal, round and reactive pupils present Neck/C-Spine: COMMON NORMALS: full ROM and supple Chest: COMMONS NORMALS: normal inspection of the chest Resp: COMMON NORMALS: normal respiratory effort Cardio: COMMON NORMALS: regular rate, regular rhythm and No murmurs present (Cardio) RATE: regular rate RHYTHM: regular rhythm Extremity: COMMON NORMALS: normal to inspection and full ROM Neuro: COMMON NORMALS: patient oriented x3, moves all extremities and no focal motor deficits Psych: COMMON NORMALS: mental status grossly normal, Normal thought process present and cooperative MOOD & AFFECT: Yes depressed mood THOUGHT PROCESS: Normal thought process present THOUGHT CONTENT: Yes Suicidality present Skin: COMMON NORMALS: no rashes or lesions noted and no wounds GENERAL SKIN EXAM: no rashes or lesions noted Course Vital Signs: Vital signs: Vital Signs Temperature 99.5 F 07/06/23 16:05 Pulse Rate 110 H 07/06/23 16:05 Respiratory Rate 14 07/06/23 16:05 Blood Pressure 127/84 07/06/23 16:05 Pulse Oximetry 88 L 07/06/23 16:05 Oxygen Delivery Me thod Room Air 07/06/23 16:05 MDM - Psych Medical Decision Making Patient presents here with suicidal ideations patient is medically cleared I spoke to psychiatrist and will admit this time. Medical Records I reviewed the patient's medical records. Lab Data I reviewed the patient's lab results. 07/06/23 16:13 07/06/23 16:13 Laboratory Results WBC 7.92 10^3/uL (3.29-11.43) 07/06/23 16:13 RBC 4.40 10^6/uL (3.85-5.65) 07/06/23 16:13 Hgb 13.90 g/dL (11.27-16.99) 07/06/23 16:13 Hct 42.4 % (37-53) 07/06/23 16:13 MCV 96.4 fl (82-101) 07/06/23 16:13 MCH 31.6 pg (27-33) 07/06/23 16:13 MCHC 32.8 g/dL (30-55) 07/06/23 16:13 RDW 12.7 % (12.1-15.1) 07/06/23 16:13 Plt Count 239 10^3/cmm (157-399) 07/06/23 16:13 MPV 9.1 fL (7.4-10.4) 07/06/23 16:13 Neut % (Auto) 63.1 % 07/06/23 16:13 Lymph % (Auto) 26.6 % 07/06/23 16:13 Blair % (Auto) 9.1 % 07/06/23 16:13 Eos % (Auto) 0.3 % 07/06/23 16:13 Baso % (Auto) 0.6 % 07/06/23 16:13 Neut # (Auto) 5.00 10^3/uL (1.8-7.7) 07/06/23 16:13 Lymph # (Auto) 2.1 10^3/uL (0.8-4.8) 07/06/23 16:13 Blair # (Auto) 0.7 10^3/uL (0.2-0.9) 07/06/23 16:13 Eos # (Auto) 0.0 10^3/uL (0.0-0.8) 07/06/23 16:13 Baso # (Auto) 0.1 10^3/uL (0.0-0.1) 07/06/23 16:13 Nucleated RBC % (auto) 0 % 07/06/23 16:13 Nucleated RBCs # 0.0 /100WBC 07/06/23 16:13 Sodium 137 mmol/L (136-145) 07/06/23 16:13 Potassium 3.5 mmol/L (3.5-5.1) 07/06/23 16:13 Chloride 98 mmol/L (98-107) 07/06/23 16:13 Carbon Dioxide 27 mmol/L (22-29) 07/06/23 16:13 Anion Gap 15.5 (5-19) 07/06/23 16:13 BUN 8 mg/dL (6-20) 07/06/23 16:13 Creatinine 1.1 mg/dL (0.7-1.2) 07/06/23 16:13 GFR Calculation 76.2 mL/min (90-130) L 07/06/23 16:13 Glucose 79 mg/dL (65-115) 07/06/23 16:13 Calculated Osmolality 281 mOsm/kg (285-295) L 07/06/23 16:13 Calcium 8.5 mg/dL (8.5-10.5) 07/06/23 16:13 Total Bilirubin 0.2 mg/dL (0.15-1.2) 07/06/23 16:13 AST 87 U/L (0-40) H 07/06/23 16:13 ALT 59 U/L (0-41) H 07/06/23 16:13 Alkaline Phosphatase 105 U/L (40-130) 07/06/23 16:13 Total Protein 7.4 g/dL (6.6-8.7) 07/06/23 16:13 Albumin 4.1 g/dL (3.5-5.2) 07/06/23 16:13 Globulin 3.3 g/dL (1.3-4.6) 07/06/23 16:13 Salicylates 0.5 mg/dL (3-10) L 07/06/23 16:13 Acetaminophen < 5.0 ug/mL (10-30) L 07/06/23 16:13 Ethyl Alcohol 13 mg/dL (0-10) H 07/06/23 16:13 No radiology studies performed this visit Discharge Plan Discharge Patient Disposition: Admitted As Inpatient Admit Provider: Wicho Burnett Clinical Impression: Suicidal ideation Condition: Stable Coding Level of Care Code ED Engagement Liaison for Jose Horvath
[2023-07-06 16:05] VITALS: BP 127/84; PULSE 110; RESP 14; TEMP 37.5; O2SAT 88
[2023-07-06 16:34] LABS: Basophils # 0.1 10^3/uL (0.0-0.1); Basophils % 0.6 %; Eosinophils % 0.3 %; Hematocrit 42.4 % (37-53); Lymphocytes # 2.1 10^3/uL (0.8-4.8); Lymphocytes % 26.6 %; Mean Corpuscular HGB Conc 32.8 g/dL (30-55); Mean Corpuscular Hemoglobin 31.6 pg (27-33); Mean Corpuscular Volume 96.4 fl (82-101); Mean Platelet Volume 9.1 fL (7.4-10.4); Monocytes # 0.7 10^3/uL (0.2-0.9); Monocytes % 9.1 %; Neutrophils % 63.1 %; Nucleated Red Blood Cells % 0 %; Platelet Count 239 10^3/cmm (157-399); Red Cell Distribution Width 12.7 % (12.1-15.1); White Blood Count 7.92 10^3/uL (3.29-11.43)
[2023-07-06 16:52] LABS: Alanine Aminotransferase 59 U/L (0-41); Albumin Level 4.1 g/dL (3.5-5.2); Alcohol Level 13 mg/dL (0-10); Alkaline Phosphatase 105 U/L (40-130); Anion Gap 15.5 (5-19); Aspartate Amino Transferase 87 U/L (0-40); Blood Urea Nitrogen 8 mg/dL (6-20); Calcium 8.5 mg/dL (8.5-10.5); Carbon Dioxide 27 mmol/L (22-29); Chloride 98 mmol/L (98-107); Globulin 3.3 g/dL (1.3-4.6); Glomerular Filtration Rate 76.2 mL/min (90-130); Glucose 79 mg/dL (65-115); Osmolality Calculated 281 mOsm/kg (285-295); Potassium 3.5 mmol/L (3.5-5.1); Salicylate 0.5 mg/dL (3-10); Sodium 137 mmol/L (136-145); Total Bilirubin 0.2 mg/dL (0.15-1.2); Total Protein 7.4 g/dL (6.6-8.7)
[2023-07-06 16:55] LABS: Acetaminophen < 5.0 ug/mL (10-30)
[2023-07-06 16:57] VITALS: BP 123/82; PULSE 99; RESP 16; TEMP 37; O2SAT 89
--- NOTE | 2023-07-06 17:07 | PC.NURSE ---
96 hr rights reviewed with patient @[id number] with assistance of [facility] airport operations officer Silvestre. No concerns or questions verbalized at this time to HS. Patient copy left @ bedside with patient.
[2023-07-06 17:30] VITALS: BP 132/88; PULSE 88; RESP 16; TEMP 36.9; O2SAT 90
[2023-07-06 17:38] LABS: Benzodiazepines Screen Urine Positive (Negative); Opiate Screen Urine Positive (Negative); THC Screen Urine Positive (Negative)
[2023-07-06 17:39] LABS: Amphetamines Screen Urine Negative (Negative); Barbiturates Screen Urine Negative (Negative); Cocaine Screen Urine Negative (Negative); PCP Screen Urine Negative (Negative)
--- NOTE | 2023-07-06 17:58 | PC.NURSE ---
PATIENT'S OXYGEN SATURATION 88% IN ED, PER JON DURING REPORT. WITH AROUSAL, PATIENT'S O2 SATURATION OBSERVED TO ENTER THE 90S. JON RN, STATED THAT THE ED DOCTOR WAS SATISFIED WITH THIS.
[2023-07-06 21:02] VITALS: BP 159/81; PULSE 93; RESP 18; TEMP 36.5; O2SAT 96
--- NOTE | 2023-07-06 22:33 | PC.NURSE ---
Admission assessment completed, pt remains very difficult to keep awake and is slurring his words. Monitoring continues.
[2023-07-06] MEDS: acetaminophen 325 mg Tablet 650 MG PO (23:12)
[2023-07-07] MEDS: hyDROXYzine 25 mg Capsule 50 MG PO (00:21)
--- NOTE | 2023-07-07 00:23 | PC.NURSE ---
Pt up to the nurses station stating he needs ativan for anxiety. Pt still present extemely flat, and groggy continuing to fall asleep while talking to staff. No tremors, sweating, c/o ARREOLA, or nausea present. Pt offered vistaril for anxiety to which pt states he is supposed to get ativan for muscle spasms and anxiety. Explained to pt that vistaril was indicated for anxiety, and he reluctant agreed to try vistaril. Will continue to monitor behaviors.
[2023-07-07] MEDS: nicotine 2 mg Gum BUCCAL (01:43)
[2023-07-07 06:00] VITALS: BP 113/68; PULSE 84; RESP 16; O2SAT 93
[2023-07-07 06:13] VITALS: O2SAT 89
--- NOTE | 2023-07-07 06:36 | PC.NURSE ---
When patient was getting v/s obtained O2 sat 84% on RA, patient educated to breathe in through nose and out slowly then O2 sat leroy to 93%. Pt then came to the nurses station remains hyperfocused on receiving narcotics mainly Ativan. Pt is not scoring on CIWA scale, and remains somewhat sedated w/difficultly communicating what he needs as he has mumbled speech and continues to nod off while he is speaking to you. Pt returned to his room. Monitoring continues.
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
[2023-07-07] MEDS: fixodent 39 gm Tube 1 APPLIC DENTAL (08:20)
[2023-07-07] MEDS: ondansetron 4 MG Tablet PO (10:35)
[2023-07-07 14:00] VITALS: BP 105/71; PULSE 83; RESP 16; TEMP 37.1; O2SAT 89
[2023-07-07 20:41] VITALS: BP 108/73; PULSE 82; RESP 18; O2SAT 91
[2023-07-08 06:00] VITALS: BP 106/67; PULSE 89; RESP 19; O2SAT 90
--- NOTE | 2023-07-08 13:03 | W.PM.NPUPNS ---
Subjective NPU Subjective: Patient presented today reporting that he is doing miserably as he is trying to figure out if we can start methadone or Suboxone. He then told a fairly convoluted story about when he had Suboxone and when he had methadone. We agreed we would give him some assistance but talk to [facility] first thing in the morning before any additional doses are given. We restarted his other medications that were not controlled substances and he denied any issues with that. Mental Status Exam MSE Comments: This is an overweight white male in hospital scrubs with limited grooming and eye contact. No abnormal movements except for psychomotor retardation. Cooperative with exam in mild distress. Speech was decreased rate and volume. Mood described as depressed, affect congruent. Thought process organized. Thought content: Patient denies suicidal or homicidal ideation currently but reports fleeting suicidal thoughts with how bad things have gotten, there were no delusions reported or noted, he denied any auditory or visual hallucinations. Attention and concentration appeared intact and memory was somewhat unreliable but none were formally tested. He is alert and oriented x 3. Insight, judgment and impulse control are impaired. Vitals/I&O/Wt Last Vital Signs Temp 98.7 F 07/07/23 14:00 Pulse 89 07/08/23 06:00 Resp 19 H 07/08/23 06:00 BP 106/67 07/08/23 06:00 Pulse Ox 90 07/08/23 06:00 O2 Del Method Room Air 07/07/23 14:00 Weight last 48 hrs Weight 71.214 kg Weight 74.843 kg Data NPU 07/06/23 16:13 07/06/23 16:13 A&P Assessment and plan (1) Depression: Qualifiers: Depression Type: major depressive disorder Major depression recurrence: recurrent Active/Remission status: currently active Major depression episode severity: mild Qualified Code(s): F33.0 - Major depressive disorder, recurrent, mild (2) Alcohol dependence: (3) Opioid dependence: (4) Chronic neck pain: (5) ADHD: (6) Suicide ideation: (7) Suicidal ideation: Plan 33-year-old male with a history of alcohol abuse and opiate dependence currently in opiate withdrawal while reporting suicidal ideation and worsening depression. #1. We will restart gabapentin melatonin and Prozac as prescribed. #2 therapeutic observation 15-minute checks on the unit. #3 Encourage individual milieu and group therapy. #4 Consider dual diagnosis treatment, #5 Will attempt to gather collateral information #6 We will investigate before administering any opiates. We will consider starting Suboxone but need to find out his methadone status. #7 [facility] protocol, monitor for ETOH withdrawal. Involuntary Hold Information 96 Hour Hold: 96 Hour Involuntary Admission: Yes 96 Hour Hold Ending Date: 07/12/23 96 Hour Hold Ending Time: 16:08 Attestations NPU Medical Necessity Statement*: Inpatient hospitalization is medically necessary and the clinically appropriate intervention at this time. We will initiate medications and make adjustments as indicated. Likely length of stay 2-4 days. Coding Level of Care Code Acute Code for Chg Fwd Diagnoses Mild episode of recurrent major depressive disorder F33.0 Depression Type: major depressive disorder Major depression recurrence: recurrent Active/Remission status: currently active Major depression episode severity: mild Alcohol dependence F10.20 Opioid dependence F11.20 Chronic neck pain M54.2; G89.29 ADHD F90.9 Suicide ideation R45.851
[2023-07-08 14:00] VITALS: BP 125/84; PULSE 79; RESP 16; TEMP 36.6; O2SAT 96
[2023-07-08] MEDS: fluoxetine 20 mg Capsule 60 MG PO (14:52)
[2023-07-08] MEDS: buprenorphine-naloxone 4-1 mg Film 2 EACH SUBLINGUAL ×2 (14:52→20:46)
[2023-07-08 19:38] VITALS: BP 116/80; PULSE 72; RESP 16; TEMP 36.7; O2SAT 93
--- NOTE | 2023-07-08 20:19 | PC.NURSE ---
PT IN BED RESTING QUIETLY, DIAPHORETIC, DENIES ALL.
[2023-07-08] MEDS: gabapentin 300 mg Capsule 600 MG PO (20:46)
[2023-07-09 06:00] VITALS: BP 121/88; PULSE 86; RESP 16; O2SAT 97
--- NOTE | 2023-07-09 07:40 | P.NPUPN_ITS ---
Subjective NPU 2 Subjective: Patient presented today reporting that he is okay with us giving him the medication as it is prescribed that [facility]. We have not been able to confirm his dose secondary to them being closed Sunday and Sunday. He continues to work with the social work team on follow-up plans after discharge. He was very thankful for being back on his medication. He denied any side effects from any of the medications. Mental Status Exam 2 MSE Comments: This is an overweight white male in hospital scrubs with limited grooming and eye contact. No abnormal movements except for psychomotor retardation. Cooperative with exam in mild distress. Speech was decreased rate and volume. Mood described as depressed, affect congruent. Thought process organized. Thought content: Patient denies suicidal or homicidal ideation currently but reports fleeting suicidal thoughts with how bad things have gotten, there were no delusions reported or noted, he denied any auditory or visual hallucinations. Attention and concentration appeared intact and memory was somewhat unreliable but none were formally tested. He is alert and oriented x 3. Insight, judgment and impulse control are impaired. Vitals/I&O/Wt Last Vital Signs Temp 98.1 F 07/08/23 19:38 Pulse 86 07/09/23 06:00 Resp 16 07/09/23 06:00 BP 121/88 07/09/23 06:00 Pulse Ox 97 07/09/23 06:00 O2 Del Method Room Air 07/08/23 19:38 Weight last 48 hrs Weight 71.214 kg Weight 74.843 kg Data NPU 07/06/23 16:13 07/06/23 16:13 A&P Assessment and plan (1) Depression: Qualifiers: Depression Type: major depressive disorder Major depression recurrence: recurrent Active/Remission status: currently active Major depression episode severity: mild Qualified Code(s): F33.0 - Major depressive disorder, recurrent, mild (2) Alcohol dependence: (3) Opioid dependence: (4) Chronic neck pain: (5) ADHD: (6) Suicide ideation: (7) Suicidal ideation: Plan 33-year-old male with a history of alcohol abuse and opiate dependence currently in opiate withdrawal while reporting suicidal ideation and worsening depression. #1. We will restart gabapentin melatonin and Prozac as prescribed. #2 therapeutic observation 15-minute checks on the unit. #3 Encourage individual milieu and group therapy. #4 Consider dual diagnosis treatment, #5 Will attempt to gather collateral information #6 We will investigate before administering any opiates. We will consider starting Suboxone but need to find out his methadone status. Spoke to his clinic [facility] and they identified his current opiate dose to be methadone 50 mg p.o. daily. Restarted that and discontinued all other opiates. #7 [facility] protocol, monitor for ETOH withdrawal. Involuntary Hold Information 2 96 Hour Hold: 96 Hour Involuntary Admission: Yes 96 Hour Hold Ending Date: 07/12/23 96 Hour Hold Ending Time: 16:08 Attestations NPU 2 Medical Necessity Statement*: Inpatient hospitalization is medically necessary and the clinically appropriate intervention at this time. We will initiate medications and make adjustments as indicated. Likely length of stay 2-4 days. Coding Level of Care Code Acute Code for [facility] Fwd Diagnoses Mild episode of recurrent major depressive disorder F33.0 Depression Type: major depressive disorder Major depression recurrence: recurrent Active/Remission status: currently active Major depression episode severity: mild Alcohol dependence F10.20 Opioid dependence F11.20 Chronic neck pain M54.2; G89.29 ADHD F90.9 Suicide ideation R45.859
[2023-07-09] MEDS: gabapentin 300 mg Capsule 600 MG PO ×2 (08:22→19:33)
[2023-07-09] MEDS: buprenorphine-naloxone 4-1 mg Film 2 EACH SUBLINGUAL (08:22)
[2023-07-09] MEDS: fluoxetine 20 mg Capsule 60 MG PO (08:22)
[2023-07-09] MEDS: hyDROXYzine 25 mg Capsule 50 MG PO (10:06)
[2023-07-09] MEDS: ondansetron 4 MG Tablet PO (10:06)
[2023-07-09 13:18] VITALS: RESP 16; O2SAT 98
[2023-07-09] MEDS: methadone 10 mg Tablet 50 MG PO (13:18)
[2023-07-09 14:00] VITALS: BP 136/89; PULSE 59; RESP 19; TEMP 36.6; O2SAT 97
[2023-07-09] MEDS: trazodone 50 mg Tablet PO (19:33)
[2023-07-09 20:22] VITALS: BP 101/66; PULSE 54; RESP 16; O2SAT 94
[2023-07-10 06:00] VITALS: RESP 16
[2023-07-10] MEDS: fluoxetine 20 mg Capsule 60 MG PO (07:42)
[2023-07-10] MEDS: gabapentin 300 mg Capsule 600 MG PO ×2 (07:42→20:19)
[2023-07-10 07:43] VITALS: RESP 16; O2SAT 94
[2023-07-10] MEDS: methadone 10 mg Tablet 50 MG PO (07:43)
[2023-07-10 14:00] VITALS: BP 118/79; PULSE 61; RESP 14; TEMP 36.8; O2SAT 94
--- NOTE | 2023-07-10 18:09 | P.NPUPN_ITS ---
Subjective NPU 2 Subjective: Patient presented today reporting that he was feeling a little better. He reports that he is doing fine with the methadone but could not really articulate what really led to him coming now that he is reporting that he is feeling better and wanting to go home. We discussed the fact that his hold is up on and we have no intention of extending his hold. We did suggest that he engages in the process a little more in decrease his isolation but otherwise he reports that the plan is for him returning home to his and family. Mental Status Exam 2 MSE Comments: This is an overweight white male in hospital scrubs with limited grooming and eye contact. No abnormal movements except for psychomotor retardation. Cooperative with exam in mild distress. Speech was decreased rate and volume. Mood described as getting better, affect congruent. Thought process organized. Thought content: Patient denies suicidal or homicidal ideation , there were no delusions reported or noted, he denied any auditory or visual hallucinations. Attention and concentration appeared intact and memory was somewhat unreliable but none were formally tested. He is alert and oriented x 3. Insight, judgment and impulse control are improving. Vitals/I&O/Wt Last Vital Signs Temp 98.3 F 07/10/23 19:56 Pulse 95 07/10/23 19:56 Resp 16 07/10/23 19:56 BP 97/59 07/10/23 19:56 Pulse Ox 93 07/10/23 19:56 O2 Del Method Room Air 07/10/23 19:56 Data NPU 07/06/23 16:13 07/06/23 16:13 A&P Assessment and plan (1) Depression: Qualifiers: Depression Type: major depressive disorder Major depression recurrence: recurrent Active/Remission status: currently active Major depression episode severity: mild Qualified Code(s): F33.0 - Major depressive disorder, recurrent, mild (2) Alcohol dependence: (3) Opioid dependence: (4) Chronic neck pain: (5) ADHD: (6) Suicide ideation: (7) Suicidal ideation: Plan 33-year-old male with a history of alcohol abuse and opiate dependence currently in opiate withdrawal while reporting suicidal ideation and worsening depression. #1. We will restart gabapentin melatonin and Prozac as prescribed. #2 therapeutic observation 15-minute checks on the unit. #3 Encourage individual milieu and group therapy. #4 Consider dual diagnosis treatment, #5 Will attempt to gather collateral information #6 We will investigate before administering any opiates. We will consider starting Suboxone but need to find out his methadone status. Spoke to his clinic [facility] and they identified his current opiate dose to be methadone 50 mg p.o. daily. Restarted that and discontinued all other opiates. #7 [facility] protocol, monitor for ETOH withdrawal. Involuntary Hold Information 2 96 Hour Hold: 96 Hour Involuntary Admission: Yes 96 Hour Hold Ending Date: 07/12/23 96 Hour Hold Ending Time: 16:08 Attestations NPU 2 Medical Necessity Statement*: Inpatient hospitalization is medically necessary and the clinically appropriate intervention at this time. We will initiate medications and make adjustments as indicated. Likely length of stay 1-3 days. Coding Level of Care Code Acute Code for g Fwd Diagnoses Mild episode of recurrent major depressive disorder F33.0 Depression Type: major depressive disorder Major depression recurrence: recurrent Active/Remission status: currently active Major depression episode severity: mild Alcohol dependence F10.20 Opioid dependence F11.20 Chronic neck pain M54.2; G89.29 ADHD F90.9 Suicide ideation R45.854
[2023-07-10 19:56] VITALS: BP 97/59; PULSE 95; RESP 16; TEMP 36.8; O2SAT 93
[2023-07-11 08:01] VITALS: RESP 16
[2023-07-11] MEDS: methadone 10 mg Tablet 50 MG PO (08:01)
[2023-07-11] MEDS: fluoxetine 20 mg Capsule 60 MG PO (08:01)
[2023-07-11] MEDS: gabapentin 300 mg Capsule 600 MG PO (08:02)
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
[2023-07-11 14:55] VITALS: BP 97/59; PULSE 95; RESP 16; TEMP 36.8; O2SAT 93
== END 2023-07-11 14:57 | disposition home or self-care (01) | DRG 885 ==
LOC: ER 16:03 → NP 17:01
PROVIDERS: Admitting Provider Psychiatry & Neurology Psychiatry; Emergency Provider Emergency Medicine; PCP Family Medicine; Visit Provider Psychiatry & Neurology Psychiatry
DX: F33.0 Major depressive disorder, recurrent, mild (principal); R45.851 Suicidal ideations; F11.20 Opioid dependence, uncomplicated; F10.20 Alcohol dependence, uncomplicated; F90.9 Attention-deficit hyperactivity disorder, unspecified type; G40.409 Other generalized epilepsy and epileptic syndromes, not intractable, without status epilepticus; G89.29 Other chronic pain; M54.2 Cervicalgia
CPT/HCPCS: 36415; 80053; 80306; 80307; 85025; 94664; 97165; 99285; J0573; Q0162

== ENCOUNTER 2023-08-01 14:06 | Emergency (ER) | payer BC, MEDICAID, SELFPAY ==
[2023-08-01 14:12] VITALS: BP 124/83; PULSE 98; RESP 18; TEMP 36.5; O2SAT 98; BMI 26.6
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
[2023-08-01] MEDS: HYDROmorphone 1 mg/mL INJ 1 mL IVP (14:54)
[2023-08-01 14:57] VITALS: BP 113/87; PULSE 86; O2SAT 94
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
[2023-08-01] MEDS: lidocaine 1% INJ 10 mL (per mL) 20 ML XX (16:23)
[2023-08-01] MEDS: ceFAZolin 3,000 MG in sodium chloride 0.9% (plus) 100 ML 200 MG IV (16:24)
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
[2023-08-01 17:34] VITALS: BP 126/84; PULSE 80; O2SAT 95
== END 2023-08-01 17:25 | disposition home or self-care (01) ==
PROVIDERS: Emergency Provider Emergency Medicine; PCP Family Medicine
DX: S92.522B Displaced fracture of middle phalanx of left lesser toe(s), initial encounter for open fracture (principal); W34.00XA Accidental discharge from unspecified firearms or gun, initial encounter; Z79.891 Long term (current) use of opiate analgesic
CPT/HCPCS: 73630; 96374; 96375; 99284; 99291; J0690; J1170

== ENCOUNTER 2023-08-25 20:56 | Inpatient (IN) | payer BC, SELFPAY ==
[2023-08-25 21:00] VITALS: BP 120/79; PULSE 117; RESP 20; TEMP 39.4; O2SAT 94; BMI 26.6
[2023-08-25 23:05] VITALS: TEMP 37.4
--- NOTE | 2023-08-25 23:05 | XRR_ITS ---
PROCEDURE INFORMATION: Exam: XR Chest Exam date and time: 08/25/2023 11:16 PM Age: 33 years old Clinical indication: Fever and other: Seizure; Patient HX: Seizure with fever; Additional info: Sz fever TECHNIQUE: Imaging protocol: Radiologic exam of the chest. Views: 1 view. COMPARISON: CT chest abdpel w/*[id number] 02/17/2023 12:52 PM FINDINGS: Lungs: Lungs are clear. Pleural spaces: No pleural effusion. No pneumothorax. Heart/Mediastinum: Normal cardiomediastinal silhouette. Bones/joints: No acute osseous abnormality. XR/XR chest 1V portable [id number] IMPRESSION: No acute findings.
--- NOTE | 2023-08-25 23:05 | CTR_ITS ---
PROCEDURE INFORMATION: Exam: CT Head Without Contrast Exam date and time: 08/25/2023 11:29 PM Age: 33 years old Clinical indication: Fever and other: Seizure; Patient HX: Seizure activity with fever. History of pediatric seizures. ; Additional info: Sz fever TECHNIQUE: Imaging protocol: Computed tomography of the head without contrast. Radiation optimization: All CT scans at this facility use at least one of these dose optimization techniques: automated exposure control; mA and/or kV adjustment per patient size (includes targeted exams where dose is matched to clinical indication); or iterative reconstruction. COMPARISON: CT head wo con* [id number] 02/17/2023 12:45 PM RADIATION DOSE METRICS: Total DLP (mGy-cm): 1092.68 FINDINGS: Brain: No acute intracranial hemorrhage. No mass effect or midline shift. Basal cisterns are patent. Normal wilson-white matter differentiation. Cerebral ventricles: No ventriculomegaly. Paranasal sinuses: Mild paranasal sinus inflammatory change. Mastoid air cells: Visualized mastoid air cells are clear. Bones/joints: No acute calvarial fracture. Soft tissues: Unremarkable. CT/CT head wo con* [id number] IMPRESSION: No acute intracranial findings.
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
[2023-08-25 23:12] LABS: Basophils % 0.2 %; Eosinophils % 0.3 %; Hematocrit 36.5 % (37-53); Lymphocytes # 1.2 10^3/uL (0.8-4.8); Lymphocytes % 7.6 %; Mean Corpuscular Hemoglobin 30.6 pg (27-33); Mean Corpuscular Volume 90.1 fl (82-101); Mean Platelet Volume 9.3 fL (7.4-10.4); Monocytes # 0.9 10^3/uL (0.2-0.9); Neutrophils # 12.95 10^3/uL (1.8-7.7); Neutrophils % 85.5 %; Nucleated Red Blood Cells % 0 %; Platelet Count 245 10^3/cmm (157-399); Red Blood Count 4.05 10^6/uL (3.85-5.65); Red Cell Distribution Width 12.2 % (12.1-15.1); White Blood Count 15.14 10^3/uL (3.29-11.43)
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
[2023-08-25 23:31] LABS: Alanine Aminotransferase 36 U/L (0-41); Albumin Level 4.2 g/dL (3.5-5.2); Alkaline Phosphatase 90 U/L (40-130); Aspartate Amino Transferase 64 U/L (0-40); Blood Urea Nitrogen 14 mg/dL (6-20); C Reactive Protein 22.6 mg/L (0.0-4.9); Calcium 9.5 mg/dL (8.5-10.5); Carbon Dioxide 22 mmol/L (22-29); Chloride 97 mmol/L (98-107); Globulin 3.2 g/dL (1.3-4.6); Glomerular Filtration Rate 68.9 mL/min (90-130); Glucose 97 mg/dL (65-115); Osmolality Calculated 270 mOsm/kg (285-295); Phosphorus 3.6 mg/dL (2.5-4.5); Sodium 130 mmol/L (136-145); Total Bilirubin 0.4 mg/dL (0.15-1.2); Total Protein 7.4 g/dL (6.6-8.7)
[2023-08-25 23:33] LABS: Lactic Sepsis W/Reflex 0.9 mmol/L (0.5-2.2)
[2023-08-25 23:38] LABS: Alcohol Level < 10 mg/dL (0-10); Procalcitonin 0.26 ng/mL (0-0.5)
[2023-08-25 23:46] LABS: Creatine Phosphokinase 3512 U/L (39-308)
[2023-08-26] VITALS (47 sets, daily range): BP systolic 83–137; BP diastolic 51–98; PULSE 59–80; RESP 9–27; TEMP 36.2–36.6; O2SAT 92–100; BMI 24.8
[2023-08-26] MEDS: LORazepam 2 mg/mL INJ 10 mL MDV IVP (00:11)
[2023-08-26] MEDS: sodium chloride 0.9% 2,245.29 ML 2245.29 ML IV (00:17)
[2023-08-26 01:24] LABS: Adenovirus Not Detected (NOT DETECT); Chlamydia Pneumoniae Not Detected (NOT DETECT); Coronavirus 229E,HKU1,NL63,OC4 Not Detected (NOT DETECT); Human Metapneumovirus Not Detected (NOT DETECT); Human Rhinovirus/Enterovirus Not Detected (NOT DETECT); Influenza A Not Detected (NOT DETECT); Influenza A H1 Not Detected (NOT DETECT); Influenza A H1-2009 Not Detected (NOT DETECT); Influenza A H3 Not Detected (NOT DETECT); Influenza B Not Detected (NOT DETECT); Mycoplasma Pneumoniae Not Detected (NOT DETECT); Parainfluenza Virus Type 1 Not Detected (NOT DETECT); Parainfluenza Virus Type 2 Not Detected (NOT DETECT); Parainfluenza Virus Type 3 Not Detected (NOT DETECT); Parainfluenza Virus Type 4 Not Detected (NOT DETECT); Respiratory Syncytial Virus A Not Detected (NOT DETECT); Respiratory Syncytial Virus B Not Detected (NOT DETECT); SARS-COV-2 Not Detected (NOT DETECT)
[2023-08-26 01:37] LABS: Add Urine Microscopic? NO; Charge for UA Resulting for Rev
[2023-08-26 01:43] LABS: Bilirubin Urine Neg (Negative); Blood Urine Neg (Negative); Glucose Urine UA Norm (Normal); Ketones Urine Negative (Negative); Leukocyte Esterase Urine Negative (Negative); Nitrate Urine Negative (Negative); Protein Urine Neg (Negative); Specific Gravity, Urine 1.005 (1.005-1.030); Sulfosalicylic Acid Urine Negative (Negative); Urine Appearance Clear (CLEAR); Urine Color Yellow (Yellow); Urobilinogen Urine Norm (Negative); pH Urine 8 (5-7)
[2023-08-26 01:47] LABS: Amphetamines Screen Urine Negative (Negative); Barbiturates Screen Urine Negative (Negative); Benzodiazepines Screen Urine Positive (Negative); Cocaine Screen Urine Negative (Negative); Opiate Screen Urine Negative (Negative); PCP Screen Urine Negative (Negative); THC Screen Urine Positive (Negative)
[2023-08-26] MEDS: cefTRIAXone 2,000 MG in sodium chloride 0.9% (plus) 50 ML 100 MG IV ×2 (02:33→14:21)
[2023-08-26] MEDS: fentaNYL 50 mcg/mL INJ 2mL 100 MCG IVP (02:53)
[2023-08-26] MEDS: vancomycin 1,250 MG/250 ML PIGGYBACK 250 MG IV (02:57)
[2023-08-26] MEDS: propofol 10 mg/mL SDV 20 mL 200 MG IVP (03:32)
[2023-08-26 04:15] LABS: Appearance CSF BLOODY (CLEAR); Color CSF RED (COLORLESS); Cyto Order Verification No Order
--- NOTE | 2023-08-26 04:16 | PC.NURSE ---
100mg/10mL of Propofol wasted in the pyxis with Jana Pena RN as the witness. Propofol then placed in red medication container located next to the pyxis.
[2023-08-26 04:30] LABS: Mononuclear WBC CSF % 31 % (50-90); Polynuclear WBC CSF % 69 % (0-10)
[2023-08-26 04:34] LABS: CSF Mononuclear # 0.839 10^3/uL (50-90); Polynuclear Cells ,CSF # 1.872 10^3/uL (0-10); Red Blood Cell CSF 2687 10^3/uL (0-0); White Blood Cell CSF 2711 /uL (0-5)
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
[2023-08-26 04:57] LABS: Glucose CSF 99 mg/dL (40-70)
[2023-08-26 05:08] LABS: Pathology Referral Yes
[2023-08-26 05:22] LABS: Erythrocyte Sedimentation Rate 6 mm/hr (0-10)
[2023-08-26 05:33] LABS: Lactic Sepsis W/Reflex 0.5 mmol/L (0.5-2.2)
[2023-08-26 05:40] LABS: Magnesium 2.2 mg/dL (1.7-2.3); Phosphorus 3.5 mg/dL (2.5-4.5); Thyroid Stimulating Hormone 0.63 uIU/mL (0.27-4.20)
--- NOTE | 2023-08-26 06:34 | PC.PHAR ---
Pharmacy to dose Vancomycin dosed by Telepharmacy [facility] Initial Dosing Patient Information Sex M M/F Last Name OLIVE AGE 33 years First Name HALEY Holloway 66 inches : 1990 ABW 74.843 kg Location: ICU-7 IBW 63.8 kg If loading dose given: DW 74.843 kg Loading DOSE: 1250 mg SCr 1.2 mg/dl This Dose = 16.7 mg/kg CrCl 77.5 ml/min 1st dose Cmax: 21.5 mcg/ml Vd 56.13052 liters Time elapsed: 12.0 hrs Ke 0.069 hrs-1 Serum Conc. = 9.4 mcg/ml t1/2 10 hrs Hrs until 20 mcg/ml 2.1 hrs Hrs until 15 mcg/ml 6.3 hours Hrs until 10 mcg/ml 12.1 hours Dose Tau (Freq) Levels expected Standard 1000 12 Cmax 29.6 Targets 13.36 15.1 Cpeak 27.7 25 to 40 mg/kg hours Cmin 14.9 10 to 20
[2023-08-26] MEDS: pantoprazole 40 mg SDV IVP (06:54)
[2023-08-26] MEDS: sodium chloride 0.9% 1,000 ML 125 ML IV ×2 (06:54→17:49)
[2023-08-26] MEDS: levETIRAcetam 1,000 MG/100 ML PREMIX 400 MG IV ×2 (09:21→20:49)
--- NOTE | 2023-08-26 09:51 | PC.PHAR ---
SPOUSE STATES PT HAS BEEN TAKEN OFF BACTRIM DS-THINKING IT COULD BE THE CAUSE OF CURRENT SEIZURES. SPOUSE ALSO STATES PT TAKES 80 MG OF METHADONE EVERY MORNING AND SHE IS BRINGING WITH HER TODAY. SHE WILL CHECK WITH THE NURSE WHEN SHE ARRIVES.
[2023-08-26 12:32] LABS: HIV 1 & 2 Antigen Non-Reactive (Non-Reactiv)
[2023-08-26 12:33] LABS: HIV 1 & 2 Antibody Non-Reactive (Non-Reactiv)
[2023-08-26] MEDS: vancomycin 1,000 MG in sodium chloride 0.9% 250 ML 250 MG IV (15:06)
--- NOTE | 2023-08-26 16:50 | PC.NURSE ---
had refused resendiz prior after unsuccessful attempt voided freely later up to bedside commode had large bm noted no further seizure activity after small this am .. medication started throughout day has became more alert and oriented at present afebrile respiration even no distress noted
[2023-08-26] MEDS: methadone 10 mg Tablet 80 MG PO (17:21)
--- NOTE | 2023-08-26 18:26 | PM.MISC ---
Miscellaneous Note Purpose of Documentation: Patient is awake alert oriented . prefers to lay in bed. Last seizure noted in the ICU this morning. Abnormal CSF noted. Change CTX dosing to 2g iv q12h which would be meningitis dosing. continue vanc and Add ACV while awaiting cx results. Add HSV DNA to LP. Check RPR screen, and VDRL IgG and IgM to CSF. Check HIV ag/ab screen and crytococcal AG. resume methadone. Continue to hold gabapentin as can lower seizure threshold.
[2023-08-26] MEDS: enoxaparin 40 mg/0.4 mL Syringe SUBCUT (20:49)
[2023-08-27] VITALS (47 sets, daily range): BP systolic 90–127; BP diastolic 53–87; PULSE 50–109; RESP 11–24; TEMP 36.4–36.7; O2SAT 94–100
[2023-08-27] MEDS: sodium chloride 0.9% 1,000 ML 125 ML IV ×2 (01:43→14:04)
[2023-08-27] MEDS: cefTRIAXone 2,000 MG in sodium chloride 0.9% (plus) 50 ML 100 MG IV ×2 (01:44→14:28)
[2023-08-27 03:35] LABS: Basophils % 0.5 %; Eosinophils # 0.3 10^3/uL (0.0-0.8); Eosinophils % 3.4 %; Hematocrit 34.5 % (37-53); Lymphocytes # 1.7 10^3/uL (0.8-4.8); Lymphocytes % 22.4 %; Mean Corpuscular HGB Conc 33.3 g/dL (30-55); Mean Corpuscular Hemoglobin 30.7 pg (27-33); Mean Platelet Volume 9.5 fL (7.4-10.4); Monocytes # 0.7 10^3/uL (0.2-0.9); Monocytes % 8.9 %; Neutrophils # 4.95 10^3/uL (1.8-7.7); Neutrophils % 64.5 %; Nucleated Red Blood Cells % 0 %; Platelet Count 231 10^3/cmm (157-399); Red Blood Count 3.75 10^6/uL (3.85-5.65); Red Cell Distribution Width 12.6 % (12.1-15.1); White Blood Count 7.67 10^3/uL (3.29-11.43)
[2023-08-27] MEDS: vancomycin 1,000 MG in sodium chloride 0.9% 250 ML 250 MG IV ×2 (03:42→14:36)
[2023-08-27 04:01] LABS: Alanine Aminotransferase 41 U/L (0-41); Albumin Level 3.2 g/dL (3.5-5.2); Alkaline Phosphatase 65 U/L (40-130); Aspartate Amino Transferase 63 U/L (0-40); Blood Urea Nitrogen 6 mg/dL (6-20); Calcium 8.1 mg/dL (8.5-10.5); Carbon Dioxide 23 mmol/L (22-29); Chloride 110 mmol/L (98-107); Globulin 2.6 g/dL (1.3-4.6); Glucose 77 mg/dL (65-115); Osmolality Calculated 284 mOsm/kg (285-295); Sodium 139 mmol/L (136-145); Total Bilirubin 0.2 mg/dL (0.15-1.2); Total Protein 5.8 g/dL (6.6-8.7)
[2023-08-27 04:08] LABS: Rapid Plasma Reagin Syphilis Nonreactive (Nonreactive)
[2023-08-27] MEDS: acetaminophen 325 mg Tablet 650 MG PO ×3 (05:10→17:44)
[2023-08-27] MEDS: pantoprazole 40 mg SDV IVP (05:13)
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
[2023-08-27] MEDS: levETIRAcetam 1,000 MG/100 ML PREMIX 400 MG IV ×2 (09:03→21:26)
[2023-08-27] MEDS: methadone 10 mg Tablet 80 MG PO (09:03)
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
[2023-08-27] MEDS: enoxaparin 40 mg/0.4 mL Syringe SUBCUT (21:26)
[2023-08-28] VITALS (20 sets, daily range): BP systolic 82–128; BP diastolic 58–84; PULSE 53–88; RESP 12–24; TEMP 36.3–36.6; O2SAT 92–98
[2023-08-28 02:08] LABS: Basophils % 0.4 %; Eosinophils # 0.3 10^3/uL (0.0-0.8); Eosinophils % 3.6 %; Hematocrit 36.9 % (37-53); Lymphocytes # 1.8 10^3/uL (0.8-4.8); Lymphocytes % 22.4 %; Mean Corpuscular HGB Conc 33.1 g/dL (30-55); Mean Corpuscular Hemoglobin 30.6 pg (27-33); Mean Corpuscular Volume 92.5 fl (82-101); Mean Platelet Volume 9.6 fL (7.4-10.4); Monocytes # 0.7 10^3/uL (0.2-0.9); Monocytes % 8.5 %; Neutrophils # 5.23 10^3/uL (1.8-7.7); Nucleated Red Blood Cells % 0 %; Platelet Count 265 10^3/cmm (157-399); Red Blood Count 3.99 10^6/uL (3.85-5.65); Red Cell Distribution Width 12.5 % (12.1-15.1); White Blood Count 8.04 10^3/uL (3.29-11.43)
[2023-08-28 02:26] LABS: Anion Gap 13.9 (5-19); Blood Urea Nitrogen 3 mg/dL (6-20); Calcium 8.8 mg/dL (8.5-10.5); Carbon Dioxide 21 mmol/L (22-29); Chloride 108 mmol/L (98-107); Glomerular Filtration Rate 153.3 mL/min (90-130); Glucose 101 mg/dL (65-115); Osmolality Calculated 285 mOsm/kg (285-295); Potassium 3.9 mmol/L (3.5-5.1); Sodium 139 mmol/L (136-145); Vancomycin Trough 14.2 ug/mL (10-15)
[2023-08-28] MEDS: cefTRIAXone 2,000 MG in sodium chloride 0.9% (plus) 50 ML 100 MG IV ×2 (02:42→13:50)
[2023-08-28] MEDS: sodium chloride 0.9% 1,000 ML 125 ML IV ×2 (02:43→18:39)
[2023-08-28] MEDS: vancomycin 1,000 MG in sodium chloride 0.9% 250 ML 250 MG IV ×2 (03:50→14:40)
[2023-08-28] MEDS: pantoprazole 40 mg SDV IVP (03:51)
[2023-08-28] MEDS: levETIRAcetam 1,000 MG/100 ML PREMIX 400 MG IV (09:20)
[2023-08-28] MEDS: methadone 10 mg Tablet 80 MG PO (09:21)
--- NOTE | 2023-08-28 10:38 | PC.NURSE ---
patient off unit with radiology staff for lumbar puncture
[2023-08-28 12:02] LABS: CSF Mononuclear # 0.003 10^3/uL (50-90); Mononuclear WBC CSF % 50 % (50-90); Polynuclear Cells ,CSF # 0.003 10^3/uL (0-10); Polynuclear WBC CSF % 50 % (0-10); Red Blood Cell CSF 0 10^3/uL (0-0); White Blood Cell CSF 6 /uL (0-5)
[2023-08-28 12:06] LABS: Appearance CSF CLEAR (CLEAR); Color CSF COLORLESS (COLORLESS)
[2023-08-28 12:07] LABS: Pathology Referral Yes
[2023-08-28 12:20] LABS: Cyto Order Verification No Order
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
[2023-08-28 12:22] LABS: Glucose CSF 56 mg/dL (40-70); Total Protein CSF 86 mg/dL (15-45)
[2023-08-28] MEDS: acetaminophen 325 mg Tablet 650 MG PO (16:48)
[2023-08-28] MEDS: levETIRAcetam 1,000 mg/10 mL UDC 1000 MG PO (17:13)
[2023-08-28] MEDS: morphine 4 mg/mL SDV 1 mL 2 MG IVP (17:13)
--- NOTE | 2023-08-28 18:51 | FL_ITS ---
WS: [id number] LUMBAR PUNCTURE CLINICAL INFORMATION: initial LP hemmorhagic COMPARISON: None. TECHNIQUE: Informed consent: The procedure and its potential risk and complications were discussed with the sherri ent. Verbal and written consent was obtained. Timeout: A timeout was performed to confirm correct patient, procedure, and site. Patient was prepped and draped in the usual sterile fashion. Lidocaine 1% was used for local anesthes ia. Utilizing fluoroscopic guidance, a 3.5 inch 22-gauge spinal needle was advanced into the subarach noid space at L4-5 via LEFT oblique sublaminar approach. Free flow of clear CSF was obtained. 14 cc o f CSF was collected and sent the lab for further analysis. FLUOROSCOPIC TIME: 0min [id number] # of spot films: 1 IMPRESSION: Fluoroscopically guided lumbar puncture. No immediate complications
[2023-08-29] VITALS (9 sets, daily range): BP systolic 112–132; BP diastolic 72–94; PULSE 56–84; RESP 14–17; TEMP 36.4–36.8; O2SAT 94–98
[2023-08-29] MEDS: cefTRIAXone 2,000 MG in sodium chloride 0.9% (plus) 50 ML 100 MG IV (01:00)
[2023-08-29] MEDS: sodium chloride 0.9% 1,000 ML 125 ML IV ×2 (02:34→11:05)
[2023-08-29] MEDS: vancomycin 1,000 MG in sodium chloride 0.9% 250 ML 250 MG IV (02:34)
[2023-08-29] MEDS: pantoprazole 40 mg SDV IVP (04:13)
[2023-08-29 05:03] LABS: Basophils % 0.6 %; Eosinophils # 0.3 10^3/uL (0.0-0.8); Eosinophils % 5.2 %; Hematocrit 36.8 % (37-53); Lymphocytes # 2.1 10^3/uL (0.8-4.8); Lymphocytes % 39.7 %; Mean Corpuscular HGB Conc 33.7 g/dL (30-55); Mean Corpuscular Hemoglobin 30.4 pg (27-33); Mean Corpuscular Volume 90.2 fl (82-101); Mean Platelet Volume 9.5 fL (7.4-10.4); Monocytes # 0.5 10^3/uL (0.2-0.9); Monocytes % 8.6 %; Neutrophils # 2.44 10^3/uL (1.8-7.7); Neutrophils % 45.7 %; Nucleated Red Blood Cells % 0 %; Platelet Count 302 10^3/cmm (157-399); Red Blood Count 4.08 10^6/uL (3.85-5.65); Red Cell Distribution Width 12.2 % (12.1-15.1); White Blood Count 5.34 10^3/uL (3.29-11.43)
[2023-08-29 05:26] LABS: Anion Gap 16.9 (5-19); Blood Urea Nitrogen 5 mg/dL (6-20); Carbon Dioxide 22 mmol/L (22-29); Chloride 107 mmol/L (98-107); Glomerular Filtration Rate 153.3 mL/min (90-130); Glucose 90 mg/dL (65-115); Osmolality Calculated 291 mOsm/kg (285-295); Potassium 3.9 mmol/L (3.5-5.1); Sodium 142 mmol/L (136-145)
[2023-08-29] MEDS: levETIRAcetam 1,000 mg/10 mL UDC 1000 MG PO ×2 (08:31→18:16)
[2023-08-29] MEDS: methadone 10 mg Tablet 80 MG PO (08:31)
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
--- NOTE | 2023-08-29 11:23 | PC.NURSE ---
Called [facility] and spoke to supplier relationship director. Dr Mathur will be on vacation until then so first available appointment is Sep 19 @ [id number]
[2023-08-29] MEDS: fluoxetine 20 mg Capsule 60 MG PO (12:38)
[2023-08-29] MEDS: gabapentin 300 mg Capsule 600 MG PO ×2 (12:39→18:17)
[2023-08-29] MEDS: acetaminophen 325 mg Tablet 650 MG PO (18:16)
[2023-08-29] MEDS: cefdinir 300 MG CAPSULE PO (18:17)
[2023-08-29] MEDS: valACYclovir 1,000 mg Tablet 1000 MG PO (18:17)
[2023-08-30 03:13] VITALS: BP 110/69; PULSE 76; RESP 16; TEMP 36.8; O2SAT 96
[2023-08-30] MEDS: hyDROXYzine 25 mg Capsule PO (04:29)
[2023-08-30] MEDS: pantoprazole 40 mg SDV IVP (04:29)
[2023-08-30 04:32] LABS: Basophils % 0.6 %; Eosinophils # 0.2 10^3/uL (0.0-0.8); Eosinophils % 3.2 %; Hematocrit 36.5 % (37-53); Lymphocytes # 2.8 10^3/uL (0.8-4.8); Lymphocytes % 40.4 %; Mean Corpuscular Hemoglobin 30.8 pg (27-33); Mean Corpuscular Volume 90.6 fl (82-101); Mean Platelet Volume 9.3 fL (7.4-10.4); Monocytes # 0.6 10^3/uL (0.2-0.9); Monocytes % 8.2 %; Neutrophils # 3.21 10^3/uL (1.8-7.7); Neutrophils % 47.3 %; Nucleated Red Blood Cells % 0 %; Platelet Count 309 10^3/cmm (157-399); Red Blood Count 4.03 10^6/uL (3.85-5.65); Red Cell Distribution Width 12.5 % (12.1-15.1)
[2023-08-30 04:52] LABS: Anion Gap 14.8 (5-19); Blood Urea Nitrogen 8 mg/dL (6-20); Calcium 9.8 mg/dL (8.5-10.5); Carbon Dioxide 26 mmol/L (22-29); Chloride 104 mmol/L (98-107); Glomerular Filtration Rate 128.3 mL/min (90-130); Glucose 110 mg/dL (65-115); Osmolality Calculated 291 mOsm/kg (285-295); Potassium 3.8 mmol/L (3.5-5.1); Sodium 141 mmol/L (136-145)
[2023-08-30 06:00] VITALS: BMI 25.3
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
[2023-08-30 07:58] VITALS: PULSE 77; RESP 15; TEMP 36.8; O2SAT 96
[2023-08-30] MEDS: methadone 10 mg Tablet 80 MG PO (08:33)
[2023-08-30] MEDS: valACYclovir 1,000 mg Tablet 1000 MG PO (08:34)
[2023-08-30] MEDS: levETIRAcetam 1,000 mg/10 mL UDC 1000 MG PO (08:34)
[2023-08-30] MEDS: cefdinir 300 MG CAPSULE PO (08:34)
[2023-08-30] MEDS: fluoxetine 20 mg Capsule 60 MG PO (08:34)
[2023-08-30] MEDS: gabapentin 300 mg Capsule 600 MG PO (08:34)
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
[2023-08-30 12:59] VITALS: PULSE 77; RESP 15; TEMP 36.8; O2SAT 96
[2023-08-30 17:16] LABS: HSV 1 DNA NOT DETECTED; HSV 2 DNA NOT DETECTED; HSV Source CEREBROSPINAL FLUID
[2023-08-31 01:30] LABS: VDRL on CSF NON-REACTIVE
[2023-08-31 18:59] LABS: Lyme Disease AB (IGG),IBL NO BANDS DETECTED; Lyme Disease AB (IGM), IBL NO BANDS DETECTED
[2023-08-31 19:45] LABS: Adenosine Deaminase CSF 0.2 U/L (<7.0)
[2023-08-31 21:15] LABS: St. Louis Enceph.Virus IGG CSF <1:1; St. Louis Enceph.Virus IGM CSF <1:1
[2023-09-01 15:05] LABS: Immunoglobulin G, CSF 6.9 mg/dL (0.8-7.7)
[2023-09-01 17:50] LABS: West Nile Virus AB (IGG) <1.30 index; West Nile Virus AB (IGM) <0.90 index
== END 2023-08-30 13:01 | disposition home or self-care (01) | DRG 98 ==
LOC: ER 23:33 → ICU 08-26 05:48 → MEDSURG 08-28 16:02
PROVIDERS: Emergency Medicine; Student in an Organized Health Care Education/Training Program; Admitting Provider Family Medicine; Emergency Provider Physician Assistant; PCP Family Medicine; Visit Provider Internal Medicine
DX: G03.9 Meningitis, unspecified (principal); M62.82 Rhabdomyolysis; G40.409 Other generalized epilepsy and epileptic syndromes, not intractable, without status epilepticus; F32.A Depression, unspecified; F98.8 Other specified behavioral and emotional disorders with onset usually occurring in childhood and adolescence; T42.6X6A Underdosing of other antiepileptic and sedative-hypnotic drugs, initial encounter; S92.522D Displaced fracture of middle phalanx of left lesser toe(s), subsequent encounter for fracture with routine healing; W34.09XD Accidental discharge from other specified firearms, subsequent encounter; Z11.52 Encounter for screening for COVID-19; Z91.128 Patient's intentional underdosing of medication regimen for other reason
CPT/HCPCS: 36415; 62270; 62328; 70450; 71045; 73630; 73700; 80048; 80053; 80202; 80306; 80307; 80503; 81003; 82550; 82784; 82945; 83605; 83735; 84100; 84145; 84157; 84311; 84443; 85025; 85651; 86140; 86592; 86617; 86653; 86788; 86789; 87040; 87070; 87075; 87205; 87327; 87486; 87530; 87581; 87633; 87806; 89050; 94664; 96365; 96367; 96372; 96375; 96376; 99291; C9113; J0133; J0696; J1650; J1953; J2060; J2270; J2704; J3010; J3370; J7030; J7050

== ENCOUNTER 2023-08-31 10:26 | Observation (INO) | payer BC, MEDICAID, SELFPAY ==
[2023-08-31] VITALS (8 sets, daily range): BP systolic 113–123; BP diastolic 80–84; PULSE 70–114; RESP 12–18; TEMP 36.2–36.8; O2SAT 92–97; BMI 25.8
--- NOTE | 2023-08-31 11:24 | CT_ITS ---
WS: [id number] CT LUMBAR SPINE WITH CONTRAST. HISTORY: recent lumbar tap - paraspinal abscess Technique: All CT scans at [facility] use at least one of these dose optimization techniques: automated exposure control; mA and/or kV adjustment per patient size (includes targeted exams where dose is matched to clinical indication); or iterative reconstruction. DLP: 449.81 mGy.cm COMPARISON: 10/13/2021. Contrast: Omnipaque 350; 100 mL IV. Increase in lumbar lordosis. 3 mm retrolisthesis of L2 and L3. No air within the thecal sac. No paraspinal abscess is identified. Psoas muscles are symmetric bilaterally. There is no retroperito kameron soft tissue stranding or inflammation. Although CT is not sensitive for epidural abscess there i s no epidural abscess identified or suggestion of an epidural abscess. L1 posterior osteophyte encroaching upon the central canal. No high-grade stenoses identified. There is mild stenosis from L3-4 to L5-S1. Mild bilateral foramina l stenosis at L4-5 and L5-S1. IMPRESSION: 1. No paraspinal abscess or inflammation. 2. No psoas muscle inflammation or abscess. 3. Although CT is not sensitive for epidural abscess there are no concerning findings for epidural a bscess. 4. There is no air in the subarachnoid space.
--- NOTE | 2023-08-31 11:34 | ECG_ITS ---
[facility] Test Date: 2023-08-31 Pat Name: Steven Ricardo Department: Room: Gender: Male Order Entry: : [id number] Requested By: Sam Rizo Order Number: [id number] Maurisio MD: Osvaldo Glover M.D. Measurements Intervals Hallie Rate: 104 P: 50 DE: 160 QRS: 13 QRSD: 94 T: 33 QT: 330 QTc: 435 Interpretive Statements SINUS TACHYCARDIA Compared to ECG 12/26/2019 20:00:57 Sinus rhythm no longer present Electronically Signed On 09-01-2023 23:14:46 [employer]EEPING [employer]FF by Osvaldo Glover M.D. [email or web address]
[2023-08-31] MEDS: sodium chloride 0.9% 1,000 ML 999 ML IV (11:44)
[2023-08-31] MEDS: ondansetron 2 mg/ML SDV 2 mL 4 MG IVP (11:50)
[2023-08-31] MEDS: morphine 4 mg/mL SDV 1 mL IVP (11:50)
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
[2023-08-31 12:13] LABS: Basophils # 0.1 10^3/uL (0.0-0.1); Basophils % 0.6 %; Eosinophils # 0.1 10^3/uL (0.0-0.8); Eosinophils % 0.7 %; Hematocrit 37.9 % (37-53); Lymphocytes # 2.7 10^3/uL (0.8-4.8); Lymphocytes % 27.7 %; Mean Corpuscular HGB Conc 34.3 g/dL (30-55); Mean Corpuscular Hemoglobin 30.9 pg (27-33); Mean Platelet Volume 9.1 fL (7.4-10.4); Monocytes # 0.7 10^3/uL (0.2-0.9); Monocytes % 7.5 %; Neutrophils # 6.18 10^3/uL (1.8-7.7); Neutrophils % 62.8 %; Nucleated Red Blood Cells % 0 %; Platelet Count 382 10^3/cmm (157-399); Red Blood Count 4.21 10^6/uL (3.85-5.65); Red Cell Distribution Width 12.6 % (12.1-15.1); White Blood Count 9.85 10^3/uL (3.29-11.43)
[2023-08-31] MEDS: iohexol 350 mg/mL 500 mL Btl (per mL) IV (12:21)
[2023-08-31 12:31] LABS: Influenza A by IFA negative (Negative); Influenza B by IFA negative (Negative)
[2023-08-31 12:34] LABS: Alanine Aminotransferase 50 U/L (0-41); Albumin Level 4.4 g/dL (3.5-5.2); Alkaline Phosphatase 85 U/L (40-130); Anion Gap 16.8 (5-19); Aspartate Amino Transferase 35 U/L (0-40); Blood Urea Nitrogen 13 mg/dL (6-20); Calcium 10.1 mg/dL (8.5-10.5); Carbon Dioxide 26 mmol/L (22-29); Chloride 102 mmol/L (98-107); Globulin 3.4 g/dL (1.3-4.6); Glucose 91 mg/dL (65-115); Lipase 16 U/L (13-60); Osmolality Calculated 292 mOsm/kg (285-295); Potassium 3.8 mmol/L (3.5-5.1); Sodium 141 mmol/L (136-145); Total Bilirubin 0.2 mg/dL (0.15-1.2); Total Protein 7.8 g/dL (6.6-8.7)
[2023-08-31 12:36] LABS: Lactic Sepsis W/Reflex 1.2 mmol/L (0.5-2.2)
[2023-08-31 13:18] LABS: Urine Appearance Clear (CLEAR); Urine Color Light yellow (Yellow)
[2023-08-31 13:19] LABS: Add Urine Microscopic? YES; Bilirubin Urine Neg (Negative); Blood Urine Trace (Negative); Glucose Urine UA Norm (Normal); Ketones Urine Negative (Negative); Leukocyte Esterase Urine Negative (Negative); Nitrate Urine Negative (Negative); Protein Urine Neg (Negative); Urobilinogen Urine Norm (Negative); pH Urine 5 (5-7)
[2023-08-31 13:20] LABS: Add Urine Culture? No
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
[2023-08-31 13:56] LABS: Adenovirus Not Detected (NOT DETECT); Chlamydia Pneumoniae Not Detected (NOT DETECT); Coronavirus 229E,HKU1,NL63,OC4 Not Detected (NOT DETECT); Human Metapneumovirus Not Detected (NOT DETECT); Human Rhinovirus/Enterovirus Not Detected (NOT DETECT); Influenza A Not Detected (NOT DETECT); Influenza A H1 Not Detected (NOT DETECT); Influenza A H1-2009 Not Detected (NOT DETECT); Influenza A H3 Not Detected (NOT DETECT); Influenza B Not Detected (NOT DETECT); Mycoplasma Pneumoniae Not Detected (NOT DETECT); Parainfluenza Virus Type 1 Not Detected (NOT DETECT); Parainfluenza Virus Type 2 Not Detected (NOT DETECT); Parainfluenza Virus Type 3 Not Detected (NOT DETECT); Parainfluenza Virus Type 4 Not Detected (NOT DETECT); Respiratory Syncytial Virus A Not Detected (NOT DETECT); Respiratory Syncytial Virus B Not Detected (NOT DETECT); SARS-COV-2 Not Detected (NOT DETECT)
[2023-08-31] MEDS: levETIRAcetam 1,000 MG/100 ML PREMIX 400 MG IV (14:30)
[2023-08-31 14:38] LABS: Amphetamines Screen Urine Negative (Negative); Barbiturates Screen Urine Negative (Negative); Benzodiazepines Screen Urine Positive (Negative); Cocaine Screen Urine Negative (Negative); Opiate Screen Urine Positive (Negative); PCP Screen Urine Negative (Negative); THC Screen Urine Positive (Negative)
[2023-08-31] MEDS: cefTRIAXone 1,000 MG in sodium chloride 0.9% (plus) 50 ML 100 MG IV (14:43)
[2023-08-31] MEDS: sodium chloride 0.9% 1,000 ML 125 ML IV ×2 (14:43→20:40)
[2023-08-31 14:45] LABS: Alcohol Level < 10 mg/dL (0-10)
[2023-08-31 14:46] LABS: Procalcitonin 0.05 ng/mL (0-0.5)
[2023-08-31] MEDS: valACYclovir 1,000 mg Tablet 1000 MG PO (17:13)
[2023-08-31] MEDS: acetaminophen 325 mg Tablet 650 MG PO (18:03)
[2023-09-01] MEDS: levETIRAcetam 1,000 MG/100 ML PREMIX 400 MG IV (00:03)
[2023-09-01] MEDS: acetaminophen 325 mg Tablet 650 MG PO (03:49)
[2023-09-01 04:00] VITALS: BP 124/83; PULSE 87; RESP 17; TEMP 36.5; O2SAT 95
[2023-09-01] MEDS: sodium chloride 0.9% 1,000 ML 125 ML IV (05:08)
[2023-09-01 05:51] LABS: Basophils # 0.1 10^3/uL (0.0-0.1); Basophils % 0.6 %; Eosinophils # 0.2 10^3/uL (0.0-0.8); Eosinophils % 2.1 %; Hematocrit 35.9 % (37-53); Lymphocytes # 2.4 10^3/uL (0.8-4.8); Lymphocytes % 23.3 %; Mean Corpuscular Hemoglobin 33.4 pg (27-33); Mean Corpuscular Volume 90.2 fl (82-101); Mean Platelet Volume 9.2 fL (7.4-10.4); Monocytes # 0.8 10^3/uL (0.2-0.9); Monocytes % 7.6 %; Neutrophils # 6.65 10^3/uL (1.8-7.7); Neutrophils % 65.9 %; Nucleated Red Blood Cells % 0 %; Platelet Count 406 10^3/cmm (157-399); Red Blood Count 3.98 10^6/uL (3.85-5.65); White Blood Count 10.09 10^3/uL (3.29-11.43)
[2023-09-01 06:14] LABS: Alanine Aminotransferase 41 U/L (0-41); Albumin Level 3.8 g/dL (3.5-5.2); Alkaline Phosphatase 76 U/L (40-130); Aspartate Amino Transferase 28 U/L (0-40); Blood Urea Nitrogen 9 mg/dL (6-20); Calcium 8.9 mg/dL (8.5-10.5); Carbon Dioxide 26 mmol/L (22-29); Chloride 105 mmol/L (98-107); Globulin 2.9 g/dL (1.3-4.6); Glomerular Filtration Rate 128.3 mL/min (90-130); Glucose 114 mg/dL (65-115); Osmolality Calculated 288 mOsm/kg (285-295); Sodium 139 mmol/L (136-145); Total Bilirubin 0.2 mg/dL (0.15-1.2); Total Protein 6.7 g/dL (6.6-8.7)
[2023-09-01 08:17] VITALS: BP 149/98; PULSE 70; RESP 16; TEMP 36.8; O2SAT 95
[2023-09-01] MEDS: fluoxetine 20 mg Capsule 60 MG PO (08:44)
[2023-09-01] MEDS: valACYclovir 1,000 mg Tablet 1000 MG PO (08:44)
[2023-09-01] MEDS: methadone 10 mg Tablet 80 MG PO (08:44)
[2023-09-01 09:37] VITALS: BP 149/98; PULSE 70; RESP 16; TEMP 36.8; O2SAT 95
[2023-09-01 11:39] LABS: Levetiracetam Immunoassy 34.5 mcg/mL (6.0-46.0)
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
[2023-09-05 10:41] LABS: Amphetamine negative; Barbiturates negative; Benzodiazepines negative; Cocaine Metabolites negative; Marijuana(Tetrahydrocannabino) negative; Opiates negative; PCP (Phencyclidine) negative
== END 2023-09-01 09:38 | disposition left against medical advice (07) ==
LOC: ER 14:30 → ER IP 16:02 → MEDSURG 09-01 13:13
PROVIDERS: Admitting Provider Internal Medicine; Emergency Provider Family Medicine; PCP Family Medicine; Visit Provider Internal Medicine
DX: R41.82 Altered mental status, unspecified (principal); S91.332D Puncture wound without foreign body, left foot, subsequent encounter; W34.00XD Accidental discharge from unspecified firearms or gun, subsequent encounter; G40.919 Epilepsy, unspecified, intractable, without status epilepticus; M62.82 Rhabdomyolysis; G03.9 Meningitis, unspecified; Z79.891 Long term (current) use of opiate analgesic; G40.409 Other generalized epilepsy and epileptic syndromes, not intractable, without status epilepticus; Z53.21 Procedure and treatment not carried out due to patient leaving prior to being seen by health care provider
CPT/HCPCS: 36415; 72132; 80053; 80177; 80306; 80307; 81001; 83605; 83690; 84145; 85025; 87635; 87804; 93005; 96361; 96365; 96375; 99285; G0378; J0696; J1953; J2270; J2405; J7030; Q9967

== ENCOUNTER 2023-09-04 19:15 | Emergency (ER) | payer BC, MEDICAID, SELFPAY ==
[2023-09-04 19:23] VITALS: BP 112/72; PULSE 129; RESP 14; TEMP 36.9; O2SAT 95
--- NOTE | 2023-09-04 19:52 | CTR_ITS ---
PROCEDURE INFORMATION: Exam: CT Head Without Contrast Exam date and time: 09/04/2023 8:19 PM Age: 33 years old Clinical indication: Injury or trauma; Other: Seizure; Blunt trauma (contusions or hematomas); Additional info: Seizure, head trauma TECHNIQUE: Imaging protocol: Computed tomography of the head without contrast. Sagittal and coronal reformatted images were created and reviewed. Radiation optimization: All CT scans at this facility use at least one of these dose optimization techniques: automated exposure control; mA and/or kV adjustment per patient size (includes targeted exams where dose is matched to clinical indication); or iterative reconstruction. COMPARISON: CT head wo con* [id number] 08/25/2023 11:29 PM RADIATION DOSE METRICS: Total DLP (mGy-cm): 1095.68 FINDINGS: Brain: No acute intracranial hemorrhage. No acute infarct. No intra-axial or extra-axial masses. Aviles-white matter differentiation is preserved. No cerebral edema. No extra-axial fluid collections. No midline shift. No evidence for Chiari 1 malformation. Cerebral ventricles: No hydrocephalus. Paranasal sinuses: Small mucus retention cyst in the left maxillary sinus. Other visualized paranasal sinuses are clear. Mastoid air cells: Mastoid air cells are clear bilaterally. Orbital cavities: No acute abnormality in the visualized orbits. Nasal cavity: Mild right nasal septal deviation. Bones/joints: No acute fracture. Soft tissues: The extracranial soft tissues are unremarkable. CT/CT head wo con* [id number] IMPRESSION: 1. No acute abnormality of the brain. 2. Incidental/nonacute findings are listed in the report.
--- NOTE | 2023-09-04 20:05 | ED_ITS ---
HPI - Seizure 2 General: Chief Complaint: Seizure Stated Complaint: seizures Time Seen by Provider: 09/04/23 19:31 History of Present Illness: HPI Narrative: Patient presents to the ER with history of multiple seizures today. Found on the floor unresponsive secondary to what they think is a seizure and him hitting his head. Patient has a known his seizure disorder and is on Keppra twice a day which she is currently compliant with. Patient was just recently admitted to the hospital for uncontrolled seizures and viral meningitis. Patient was discharged on valacyclovir, cefdinir and Keppra,, he came back within a couple days for fever and more seizures and left AMA. Patient used to see Dr. Sung in the past but has not seen her for couple years. They say appointment is being made to see her again but they do not have a date. Him and significant other are not understanding why the seizures keep coming even though he has been compliant with his medicine. Review of Systems 2 General: Reports: 10 or more systems reviewed and unremarkable except in HPI and below PFSH ED 2 PFSH: Medical History Psychiatric care Substance use disorder Depression ADD (attention deficit disorder) Primary generalized epilepsy, major Family History Other CAD (coronary artery disease) Cancer Diabetes Hypertension Stroke Social History Smoking and tobacco/nicotine status: never used tobacco/nicotine Second hand smoke exposure: No Alcohol intake: never Substance/Drug Use: former Current gender identity: Male Physical Exam 2 Const: COMMON NORMALS: no acute distress, average body habitus, patient oriented x3, no limitations, healthy appearing, alert and well nourished HENMT: COMMON NORMALS: normocephalic, atraumatic, hearing grossly normal bilaterally, external ears normal, Normal external nose present, moist oral mucous membranes and oropharynx normal HEAD & SCALP: normocephalic and atraumatic NOSE: Normal external nose present EXTERNAL EAR: Yes external ears normal Eye: COMMON NORMALS: Equal, round and reactive pupils present, EOMs intact bilaterally, conjunctivae normal and no scleral icterus CONJUNCTIVA: Yes conjunctivae normal PUPIL: Yes Equal, round and reactive pupils present Neck/C-Spine: COMMON NORMALS: full ROM, no lymphadenopathy, supple, no meningeal signs, no JVD and Thyroid normal THYROID: Thyroid normal Chest: COMMONS NORMALS: normal inspection of the chest and normal palpation of entire chest wall Resp: COMMON NORMALS: normal respiratory effort, No retractions, No use of accessory muscles and clear to auscultation bilaterally AUSCULTATION: clear to auscultation bilaterally Cardio: COMMON NORMALS: no JVD, regular rhythm, S1 normal heart sound present, S2 normal heart sound present, No gallops present (Cardio), No clicks present (Cardio), No murmurs present (Cardio) and No rub (Cardio); negative for regular rate (Tachycardic) RATE: abnormal rate (Tachycardic) RHYTHM: regular rhythm HEART SOUNDS: S1 normal heart sound present and S2 normal heart sound present GI: COMMON NORMALS: Normal to inspection, nondistended, normoactive bowel sounds present, Soft to palpation, non-tender, No hepatosplenomegaly present and no masses PALPATION: Yes Soft to palpation and Yes No hepatosplenomegaly present Neuro: COMMON NORMALS: patient oriented x3 SENSORIUM/ORIENTATION: Yes alert MENINGEAL SIGNS: Yes no meningeal signs Course 2 Vital Signs: Vital signs: Vital Signs Temperature 98.4 F 09/04/23 21:58 Pulse Rate 100 09/04/23 21:58 Respiratory Rate 16 09/04/23 21:58 Blood Pressure 109/79 09/04/23 21:58 Pulse Oximetry 93 09/04/23 21:58 MDM - Seizure MDM Narrative Medical decision making narrative: Patient presents to the ER today after being postictal from having a witnessed seizure. Patient had an unwitnessed possible seizure and was found on the ground where he potentially hit his head. Patient has CT scan done today which was no acute abnormality as well as lab work that included CBC CMP lactic acid procalcitonin urinalysis urine drug screen serial cardiac enzymes all of which was essentially unremarkable except urine showed trace leukocyte Estrace and 10- 15 white blood cells, urine drug screen showed positive for THC opiates and benzos. These results was discussed with the patient. Patient's family is not understanding why he is still having seizures even though he is on seizure medicine. We will refer him to neurology for further evaluation and treatment. We will place him on Bactrim for his potential urinary tract infection. Differential Diagnosis Seizure Differential Diagnosis: Likely epileptic seizure Medical Records Attestation: I reviewed the patient's medical records. Lab Data Attestation: I reviewed the patient's lab results. 09/04/23 20:11 09/04/23 20:11 Labs: Radiology Impressions Head CT 09/04/23 19:52 IMPRESSION: 1. No acute abnormality of the brain. 2. Incidental/nonacute findings are listed in the report. Laboratory Results WBC 6.29 10^3/uL (3.29-11.43) 09/04/23 20:11 RBC 4.26 10^6/uL (3.85-5.65) 09/04/23 20:11 Hgb 13.20 g/dL (11.27-16.99) 09/04/23 20:11 Hct 38.8 % (37-53) 09/04/23 20:11 MCV 91.1 fl (82-101) 09/04/23 20:11 MCH 31.0 pg (27-33) 09/04/23 20:11 MCHC 34.0 g/dL (30-55) 09/04/23 20:11 RDW 13.0 % (12.1-15.1) 09/04/23 20:11 Plt Count 395 10^3/cmm (157-399) 09/04/23 20:11 MPV 8.8 fL (7.4-10.4) 09/04/23 20:11 Neut % (Auto) 51.5 % 09/04/23 20:11 Lymph % (Auto) 36.6 % 09/04/23 20:11 Delta % (Auto) 8.7 % 09/04/23 20:11 Eos % (Auto) 1.9 % 09/04/23 20:11 Baso % (Auto) 0.8 % 09/04/23 20:11 Neut # (Auto) 3.24 10^3/uL (1.8-7.7) 09/04/23 20:11 Lymph # (Auto) 2.3 10^3/uL (0.8-4.8) 09/04/23 20:11 Delta # (Auto) 0.6 10^3/uL (0.2-0.9) 09/04/23 20:11 Eos # (Auto) 0.1 10^3/uL (0.0-0.8) 09/04/23 20:11 Baso # (Auto) 0.1 10^3/uL (0.0-0.1) 09/04/23 20:11 Nucleated RBC % (auto) 0 % 09/04/23 20:11 Nucleated RBCs # 0.0 /100WBC 09/04/23 20:11 Sodium 137 mmol/L (136-145) 09/04/23 20:11 Potassium 4.0 mmol/L (3.5-5.1) 09/04/23 20:11 Chloride 99 mmol/L (98-107) 09/04/23 20:11 Carbon Dioxide 23 mmol/L (22-29) 09/04/23 20:11 Anion Gap 19.0 (5-19) 09/04/23 20:11 BUN 9 mg/dL (6-20) 09/04/23 20:11 Creatinine 0.8 mg/dL (0.7-1.2) 09/04/23 20:11 GFR Calculation 110.0 mL/min (90-130) 09/04/23 20:11 Glucose 106 mg/dL (65-115) 09/04/23 20:11 Calculated Osmolality 283 mOsm/kg (285-295) L 09/04/23 20:11 Lactic Acid 2.2 mmol/L (0.5-2.2) 09/04/23 20:11 Calcium 10.1 mg/dL (8.5-10.5) 09/04/23 20:11 Magnesium 1.9 mg/dL (1.7-2.3) 09/04/23 20:11 Total Bilirubin 0.2 mg/dL (0.15-1.2) 09/04/23 20:11 AST 64 U/L (0-40) H 09/04/23 20:11 ALT 79 U/L (0-41) H 09/04/23 20:11 Alkaline Phosphatase 82 U/L (40-130) 09/04/23 20:11 Troponin T Baseline 8 ng/L (0-15) 09/04/23 20:11 Total Protein 7.4 g/dL (6.6-8.7) 09/04/23 20:11 Albumin 4.2 g/dL (3.5-5.2) 09/04/23 20:11 Globulin 3.2 g/dL (1.3-4.6) 09/04/23 20:11 Procalcitonin 0.03 ng/mL (0-0.5) 09/04/23 20:11 Prolactin 13.77 ng/mL (4.0-15.2) 09/04/23 20:11 Urine Color Yellow (Yellow) 09/04/23 20:00 Urine Appearance Clear (CLEAR) 09/04/23 20:00 Urine pH 5 (5-7) 09/04/23 20:00 Ur Specific [place] 1.020 (1.005-1.030) 09/04/23 20:00 Urine Protein Trace (Negative) 09/04/23 20:00 Urine Glucose (UA) Norm (Normal) 09/04/23 20:00 Urine Ketones 1+ (Negative) H 09/04/23 20:00 Urine Blood Neg (Negative) 09/04/23 20:00 Urine Nitrate Negative (Negative) 09/04/23 20:00 Urine Bilirubin Neg (Negative) 09/04/23 20:00 Urine Urobilinogen Norm mg/dL (Negative) 09/04/23 20:00 Ur Leukocyte Esterase Trace (Negative) H 09/04/23 20:00 Urine RBC None /hpf (0-2) 09/04/23 20:00 Urine WBC 10-15 /hpf (0-5) H 09/04/23 20:00 Ur Squamous Epith Cells 0-4 /hpf (0-5) H 09/04/23 20:00 Calcium Oxalate Crystal 5-10 /hpf H 09/04/23 20:00 Amorphous Sediment Not Reportable 09/04/23 20:00 Urine Bacteria Trace /hpf (NONE) 09/04/23 20:00 Urine Mucus Trace /hpf 09/04/23 20:00 Urine Opiates Screen Positive ng/mL (Negative) H 09/04/23 20:00 Ur Barbiturates Screen Negative ng/mL (Negative) 09/04/23 20:00 Ur Phencyclidine Scrn Negative ng/mL (Negative) 09/04/23 20:00 Ur Amphetamines Screen Negative ng/mL (Negative) 09/04/23 20:00 U Benzodiazepines Scrn Positive ng/mL (Negative) H 09/04/23 20:00 Urine Cocaine Screen Negative ng/mL (Negative) 09/04/23 20:00 U Marijuana (THC) Screen Positive ng/mL (Negative) H 09/04/23 20:00 All radiology interpretation(s) finalized by discharge EKG Data EKG 1: Attestation: I personally reviewed and interpreted this EKG as follows: EKG interpretation date: 09/04/23 EKG interpretation time: 21:10 Prior EKG tracings: not available for review Interpretation: EKG showed ventricular rate 100 bpm, SD interval 173, QRS duration 88, QTc of 412, sinus tachycardia, Discharge Plan Discharge Patient Disposition: Home Clinical Impression: Seizure Urinary tract infection Qualifiers: Urinary tract infection type: acute cystitis Hematuria presence: without hematuria Qualified Code(s): N30.00 - Acute cystitis without hematuria Condition: Stable Prescriptions: New Bactrim DS 800-160 mg tablet 1 tab PO BID Qty: 14 0RF No Action gabapentin 600 mg tablet 600 mg PO BID Qty: 60 5RF methadone 10 mg Tablet 80 mg PO DAILY melatonin 5 mg Capsule 10 mg PO QPM fluoxetine 20 mg capsule 60 mg PO DAILY valacyclovir 1 gram Tablet 1,000 mg PO BID 13 Days Qty: 26 0RF cefdinir 300 mg Capsule 300 mg PO BID 13 Days Qty: 26 0RF levetiracetam [Keppra] 1,000 mg tablet 1,000 mg PO BID Qty: 60 0RF Discharge Orders: Discharge ED (Routine); Ordered 09/04/23 Ordered By: Jin Tran Referrals: Isaiah Mathur DO [Primary Care Provider] - 1 week Patient Instructions: Urinary Tract Infection in Men (ED), Epilepsy (ED) Activity Restrictions/Additional Instructions: Your head CT, lab work, EKGs and workup in ER was essentially unremarkable other than possibly slight urinary tract infection. We will place you on Bactrim for this. A culture will be obtained you have been referred to case management to help get an appointment with neurology. They usually perform these within the next 1-2 business days if you have not heard from them by then please feel free to give us call. Otherwise follow-up with your family practice doctor within next 7 to 10 days for further workup and evaluation. Please take all your medicine as directed. Coding Level of Care Code ED Applications Administrator for Jose Horvath
[2023-09-04] MEDS: sodium chloride 0.9% 1,000 ML 999 ML IV (20:28)
[2023-09-04] MEDS: morphine 4 mg/mL SDV 1 mL IVP (20:29)
[2023-09-04] MEDS: ondansetron 2 mg/ML SDV 2 mL 4 MG IVP (20:29)
[2023-09-04 20:30] LABS: Basophils # 0.1 10^3/uL (0.0-0.1); Basophils % 0.8 %; Eosinophils # 0.1 10^3/uL (0.0-0.8); Eosinophils % 1.9 %; Hematocrit 38.8 % (37-53); Lymphocytes # 2.3 10^3/uL (0.8-4.8); Lymphocytes % 36.6 %; Mean Corpuscular Volume 91.1 fl (82-101); Mean Platelet Volume 8.8 fL (7.4-10.4); Monocytes # 0.6 10^3/uL (0.2-0.9); Monocytes % 8.7 %; Neutrophils # 3.24 10^3/uL (1.8-7.7); Neutrophils % 51.5 %; Nucleated Red Blood Cells % 0 %; Platelet Count 395 10^3/cmm (157-399); Red Blood Count 4.26 10^6/uL (3.85-5.65); White Blood Count 6.29 10^3/uL (3.29-11.43)
[2023-09-04 20:32] VITALS: BP 119/60; PULSE 108; RESP 16; O2SAT 93
[2023-09-04 20:41] LABS: Amphetamines Screen Urine Negative (Negative); Barbiturates Screen Urine Negative (Negative); Benzodiazepines Screen Urine Positive (Negative); Cocaine Screen Urine Negative (Negative); Opiate Screen Urine Positive (Negative); PCP Screen Urine Negative (Negative); THC Screen Urine Positive (Negative)
[2023-09-04 20:50] LABS: Lactic Sepsis W/Reflex 2.2 mmol/L (0.5-2.2)
[2023-09-04 20:51] LABS: Troponin(5th) Baseline 8 ng/L (0-15)
[2023-09-04 20:59] LABS: Add Urine Microscopic? YES; Bacteria Urine TRACE /hpf; Bilirubin Urine Neg (Negative); Blood Urine Neg (Negative); Glucose Urine UA Norm (Normal); Ketones Urine 1+ (Negative); Leukocyte Esterase Urine Trace (Negative); Nitrate Urine Negative (Negative); Protein Urine Trace (Negative); Squamous Epithelial Cell Urine 0-4 /hpf (0-5); Urine Appearance Clear (CLEAR); Urine Color Yellow (Yellow); Urobilinogen Urine Norm (Negative); pH Urine 5 (5-7)
[2023-09-04 21:00] LABS: Add Urine Culture? No; Mucus Urine TRACE /hpf
[2023-09-04 21:01] LABS: Procalcitonin 0.03 ng/mL (0-0.5); Prolactin 13.77 ng/mL (4.0-15.2)
--- NOTE | 2023-09-04 21:10 | ECG_ITS ---
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 Measurements Intervals [place] Rate: 100 P: 54 MA: 173 QRS: 70 QRSD: 88 T: 1 QT: 355 QTc: 459 Interpretive Statements SINUS TACHYCARDIA POSSIBLE LEFT ATRIAL ENLARGEMENT [-0.1mV P-WAVE IN V1/V2] ABNORMAL RHYTHM ECG Compared to ECG 08/31/2023 11:34:33 No significant changes Electronically Signed On 09-05-2023 7:18:21 STORE COORDINATOR by Osvaldo Glover M.D. [id number]
[2023-09-04 21:12] LABS: Alanine Aminotransferase 79 U/L (0-41); Albumin Level 4.2 g/dL (3.5-5.2); Alkaline Phosphatase 82 U/L (40-130); Aspartate Amino Transferase 64 U/L (0-40); Blood Urea Nitrogen 9 mg/dL (6-20); Calcium 10.1 mg/dL (8.5-10.5); Carbon Dioxide 23 mmol/L (22-29); Chloride 99 mmol/L (98-107); Globulin 3.2 g/dL (1.3-4.6); Glucose 106 mg/dL (65-115); Magnesium 1.9 mg/dL (1.7-2.3); Osmolality Calculated 283 mOsm/kg (285-295); Sodium 137 mmol/L (136-145); Total Bilirubin 0.2 mg/dL (0.15-1.2); Total Protein 7.4 g/dL (6.6-8.7)
[2023-09-04 21:36] VITALS: BP 109/79; PULSE 100; RESP 16; O2SAT 93
[2023-09-04] MEDS: sulfamethoxazole-trimeth DS 160-800 mg Tablet 1 TAB PO (21:51)
[2023-09-04 21:58] VITALS: BP 109/79; PULSE 100; RESP 16; TEMP 36.9; O2SAT 93
[2023-09-04 22:10] LABS: Reflex Lactate Order REFLEX LACTIC ORDERD
--- NOTE | 2023-09-05 08:54 | DCPLANNER ---
message sent to Neurology for a follow up -Seizures-
== END 2023-09-04 21:58 | disposition home or self-care (01) ==
PROVIDERS: Emergency Provider Emergency Medicine; PCP Family Medicine
DX: R56.9 Unspecified convulsions (principal); N30.00 Acute cystitis without hematuria; Z79.891 Long term (current) use of opiate analgesic
CPT/HCPCS: 36415; 70450; 80053; 80306; 81001; 83605; 83735; 84145; 84146; 84484; 85025; 93005; 96361; 96374; 96375; 99285; J2270; J2405; J7030

== ENCOUNTER → 2023-09-06 08:45 | Outpatient (BNVA) | payer BC, MEDICAID, SELFPAY | PROVIDERS: PCP Family Medicine; Visit Provider Podiatrist Foot & Ankle Surgery | DX: S92.522D Displaced fracture of middle phalanx of left lesser toe(s), subsequent encounter for fracture with routine healing (principal); S91.332D Puncture wound without foreign body, left foot, subsequent encounter; X58.XXXD Exposure to other specified factors, subsequent encounter | CPT/HCPCS: 73630 ==

== ENCOUNTER 2023-11-22 13:32 | Emergency (ER) | payer BC, MEDICAID, SELFPAY ==
--- NOTE | 2023-11-22 13:38 | ECG_ITS ---
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 Measurements Intervals [place] Rate: 117 P: 69 UT: 155 QRS: 50 QRSD: 85 T: 46 QT: 257 QTc: 359 Interpretive Statements SINUS TACHYCARDIA NONSPECIFIC T-WAVE ABNORMALITY ABNORMAL RHYTHM ECG Compared to ECG 09/04/2023 21:10:01 T-wave abnormality now present Electronically Signed On 11-22-2023 15:13:21 CDT by Walter Chow M.D. [id number] f
[2023-11-22 13:39] VITALS: PULSE 122; RESP 22; TEMP 36.9; O2SAT 95; BMI 27.7
--- NOTE | 2023-11-22 13:53 | CT_ITS ---
WS: [id number] CT HEAD NONCONTRAST HISTORY: trauma/pain TECHNIQUE: Contiguous axial imaging performed through the brain in 2.5 mm imaging. Bone and soft tiss ue windows. Sagittal and coronal reformats reviewed. All CT scans at [facility] use at least one of these dose optimization techniques: automated exposure control; mA and/or kV adjustment per pa tient size (includes targeted exams where dose is matched to clinical indication); or iterative recon struction. DLP: 2364.78 mGy.cm COMPARISON: 09/04/2023 No acute intracranial hemorrhage, midline shift or mass effect. No atrophy or prior infarcts or herniation. Ventricles: Normal size with no hydrocephalus. No inferior displacement of cerebellar tonsils. Paranasal sinuses: Small mucous retention cyst LEFT sphenoid sinus. Mastoid air cells: Well pneumatized. Calvarium and scalp: Skull is intact with no soft tissue edema or swelling. IMPRESSION: Negative head CT.
--- NOTE | 2023-11-22 13:53 | CT_ITS ---
WS: [id number] CT CERVICAL SPINE HISTORY: trauma/injury TECHNIQUE: Contiguous 2.0 mm axial imaging performed through the entire cervical spine. Sagittal and coronal reformats also performed. All CT scans at [facility] use at least one of these dose o ptimization techniques: automated exposure control; mA and/or kV adjustment per patient size (include s targeted exams where dose is matched to clinical indication); or iterative reconstruction. DLP: 2364.78 mGy.cm COMPARISON: 02/17/2023 Reversal and straightening of the normal cervical lordosis. Disc spaces are narrowed moderately at C4 -5 and C5-6. No fractures. Facet joints are normally aligned. Lateral masses of C1 and C2 are aligned . The odontoid is normal. C2-C3: Normal. C3-C4: Mild facet arthritis. Mild foraminal narrowing. C4-C5: Osteophytic ridging and facet arthritis. Moderate RIGHT foraminal stenosis. C5-C6: Osteophytic ridging resulting in mild central and foraminal narrowing. C6-C7: Normal. C7-T1: Normal. Soft tissues are normal. Lung apices are clear. IMPRESSION: 1. No acute cervical spine fracture. 2. 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
--- NOTE | 2023-11-22 13:54 | ED_ITS ---
HPI - Seizure 2 General: Chief Complaint: Seizure Stated Complaint: found unresponsive at work Time Seen by Provider: 11/22/23 13:45 History of Present Illness: HPI Narrative: 33-year-old male presents emergency depa rtment with his significant other. Significant other states that the patient was found on the floor having a seizure and was postictal after the seizure. Patient upon arrival to the emergency department is awake alert and oriented following commands appropriately. He states he feels like he is had trouble remembering task throughout the day today at work. He does have generalized tremors that is noted. He states he has been taking his medications as prescribed and has not had any medication changes. Patient states that he did hit his head and does have a headache that is a 4 out of 10 throbbing and aching. The person accompanying him in the exam room does state that he did appear to be postictal and confused after the seizure activity. She states the activity lasted for approximately 10 to 15 seconds and was described as shaking all over body movements. Review of Systems 2 General: Reports: 10 or more systems reviewed and unremarkable except in HPI and below Neuro: Reports: headache(s) and seizure-like activity PFS ED 2 PFSH: Medical History Psychiatric care Substance use disorder Depression ADD (attention deficit disorder) Primary generalized epilepsy, major Family History Other CAD (coronary artery disease) Cancer Diabetes Hypertension Stroke Social History Smoking and tobacco/nicotine status: never used tobacco/nicotine Second hand smoke exposure: No Alcohol intake: never Substance/Drug Use: former Current gender identity: Male Physical Exam 2 Narrative: EXAM NARRATIVE: Constitutional: the patient appears well nourished and with normal development. Vital signs reviewed as documented. HENMT: Normocephalic, atraumatic. External ears normal appearance without drainage. Nose without drainage, normal appearance. Mucus membranes moist. Neck is supple, No jugular venous distension, trachea is midline, no appreciable carotid bruits. No lymphadenopathy. No meningeal signs. Flexion, extension and lateral rotation is without pain. Eyes: Pupils are equal, round, reactive to light and accommodation. No scleral icterus. Extra-ocular movement are intact. Thorax is symmetrical and with equal rise and fall with respirations. Resp: Lungs are clear to auscultation. No wheezes, rales, crackles or ronchi at present. Cardio: Regular rate and rhythm. Positive S1, S2. No appreciable murmurs, rubs or gallops. GI: Abdominal exam reveals normal bowel sounds to all quadrants. No organomegaly. No obvious palpable masses noted. No hepatomegally appreciated. Soft, non-tender to palpation. Extremity: Extremities are non-edematous and both femoral and pedal pulses are 2+ and equal bilaterally. Moves all extremities well, sensation in all extremities. Neuro: Alert and oriented x4, person, place, time and situation. Cranial nerves II through XII are grossly intact, there is no focal neurological deficits that I can appreciate at present. Sensation intact to all extremities. 2-point discrimination intact. Light touch intact to all extremities. Motor strength in the upper and lower extremities are equal and bilateral 5/5. Psych: Cooperative, calm, normal thought process, appropriate judgment. Skin: No lesions, rashes. No gross abnormalities noted. Back: Symmetrical, no obvious deformity, No CVA tenderness Course 2 Vital Signs: Vital signs: Vital Signs Temperature 98.4 F 11/22/23 13:39 Pulse Rate 94 11/22/23 15:00 Respiratory Rate 18 11/22/23 15:00 Blood Pressure 121/88 11/22/23 15:00 Pulse Oximetry 92 11/22/23 15:00 Oxygen Delivery Me thod Room Air 11/22/23 15:00 MDM - Seizure MDM Narrative Medical decision making narrative: Physical exam completed and documented I will obtain a CBC and CMP as well as a urinalysis urine drug screen and CT scan of the head and cervical spine given the patient's presentation that he hit his head I have also provided Keppra loading dose. CT scan of the head and neck were unremarkable for acute findings. Laboratory evaluation appeared to be normal. Patient's urine drug screen was positive for benzodiazepines and marijuana. I discussed the laboratory and radiographic findings with the patient and he became very agitated and irritated and started cussing stating that everyone is judging him and that everyone thinks he is seeking drugs. Patient started demanding narcotic pain medication and then stated that he felt like everyone was laughing at him. I attempted to reassure the patient that no one was laughing and that the pharmacy staff that was with me in the room was not laughing and I attempted to reassure him that we were all taking him very seriously and his presentation and seizure activity very seriously. Patient made a generalized statement that everyone at this hospital thinks he is a junky and just seeking pain medications and I attempted to reassure him that that was not the case and the patient stated that he wanted to be discharged and that he was leaving. Security was contacted and the patient was discharged. Medical Records Attestation: I reviewed the patient's medical records. Lab Data Attestation: I reviewed the patient's lab results. 11/22/23 13:55 11/22/23 13:55 Labs: Laboratory Results WBC 8.59 10^3/uL (3.29-11.43) 11/22/23 13:55 RBC 4.39 10^6/uL (3.85-5.65) 11/22/23 13:55 Hgb 13.90 g/dL (11.27-16.99) 11/22/23 13:55 Hct 40.2 % (37-53) 11/22/23 13:55 MCV 91.6 fl (82-101) 11/22/23 13:55 MCH 31.7 pg (27-33) 11/22/23 13:55 MCHC 34.6 g/dL (30-55) 11/22/23 13:55 RDW 12.6 % (12.1-15.1) 11/22/23 13:55 Plt Count 312 10^3/cmm (157-399) 11/22/23 13:55 MPV 9.4 fL (7.4-10.4) 11/22/23 13:55 Neut % (Auto) 61.4 % 11/22/23 13:55 Lymph % (Auto) 31.1 % 11/22/23 13:55 [place] % (Auto) 6.5 % 11/22/23 13:55 Eos % (Auto) 0.2 % 11/22/23 13:55 Baso % (Auto) 0.6 % 11/22/23 13:55 Neut # (Auto) 5.27 10^3/uL (1.8-7.7) 11/22/23 13:55 Lymph # (Auto) 2.7 10^3/uL (0.8-4.8) 11/22/23 13:55 [place] # (Auto) 0.6 10^3/uL (0.2-0.9) 11/22/23 13:55 Eos # (Auto) 0.0 10^3/uL (0.0-0.8) 11/22/23 13:55 Baso # (Auto) 0.1 10^3/uL (0.0-0.1) 11/22/23 13:55 Nucleated RBC % (auto) 0 % 11/22/23 13:55 Nucleated RBCs # 0.0 /100WBC 11/22/23 13:55 Sodium 137 mmol/L (136-145) 11/22/23 13:55 Potassium 3.8 mmol/L (3.5-5.1) 11/22/23 13:55 Chloride 99 mmol/L (98-107) 11/22/23 13:55 Carbon Dioxide 26 mmol/L (22-29) 11/22/23 13:55 Anion Gap 15.8 (5-19) 11/22/23 13:55 BUN 13 mg/dL (6-20) 11/22/23 13:55 Creatinine 0.7 mg/dL (0.7-1.2) 11/22/23 13:55 GFR Calculation 128.3 mL/min (90-130) 11/22/23 13:55 Glucose 140 mg/dL (65-115) H 11/22/23 13:55 POC Glucose 132 mg/dL (70-110) H 11/22/23 14:00 Calculated Osmolality 286 mOsm/kg (285-295) 11/22/23 13:55 Lactic Acid 2.0 mmol/L (0.5-2.2) 11/22/23 13:55 Calcium 9.2 mg/dL (8.5-10.5) 11/22/23 13:55 Total Bilirubin 0.2 mg/dL (0.15-1.2) 11/22/23 13:55 AST 38 U/L (0-40) 11/22/23 13:55 ALT 28 U/L (0-41) 11/22/23 13:55 Alkaline Phosphatase 96 U/L (40-130) 11/22/23 13:55 Total Protein 7.6 g/dL (6.6-8.7) 11/22/23 13:55 Albumin 4.5 g/dL (3.5-5.2) 11/22/23 13:55 Globulin 3.1 g/dL (1.3-4.6) 11/22/23 13:55 Prolactin 15.01 ng/mL (4.0-15.2) 11/22/23 13:55 Urine Color Yellow (Yellow) 11/22/23 14:18 Urine Appearance Clear (CLEAR) 11/22/23 14:18 Urine pH 5 (5-7) 11/22/23 14:18 Ur Specific [place] 1.020 (1.005-1.030) 11/22/23 14:18 Urine Protein Neg (Negative) 11/22/23 14:18 Urine Glucose (UA) Norm (Normal) 11/22/23 14:18 Urine Ketones Negative (Negative) 11/22/23 14:18 Urine Blood Neg (Negative) 11/22/23 14:18 Urine Nitrate Negative (Negative) 11/22/23 14:18 Urine Bilirubin Neg (Negative) 11/22/23 14:18 Urine Urobilinogen Norm mg/dL (Negative) 11/22/23 14:18 Ur Leukocyte Esterase Negative (Negative) 11/22/23 14:18 Urine Opiates Screen Negative ng/mL (Negative) 11/22/23 14:18 Ur Barbiturates Screen Negative ng/mL (Negative) 11/22/23 14:18 Ur Phencyclidine Scrn Negative ng/mL (Negative) 11/22/23 14:18 Ur Amphetamines Screen Negative ng/mL (Negative) 11/22/23 14:18 U Benzodiazepines Scrn Positive ng/mL (Negative) H 11/22/23 14:18 Urine Cocaine Screen Negative ng/mL (Negative) 11/22/23 14:18 U Marijuana (THC) Screen Positive ng/mL (Negative) H 11/22/23 14:18 All radiology interpretation(s) finalized by discharge EKG Data EKG 1: Interpretation: Twelve-lead EKG obtained at 1338 reviewed at 1340 demonstrates sinus tachycardia with a ventricular rate of 117 bpm, AR interval 155, QRS duration 85, QT 257, QTc [address] elevation or depression to demonstrate acute ischemia or infarction at present. There is significant motion artifact noted. Discharge Plan Discharge Patient Disposition: Home Clinical Impression: Seizure Headache Qualifiers: Headache type: post-traumatic Headache chronicity pattern: acute headache I ntractability: not intractable Qualified Code(s): G44.319 - Acute post-traumatic headache, not intractable Condition: Stable Prescriptions: No Action ondansetron 4 mg tablet,disintegrating 4 mg PO Q6H PRN (Reason: nausea and vomiting) Qty: 10 0RF gabapentin 600 mg tablet 600 mg PO TID Qty: 90 5RF methadone 10 mg Tablet 95 mg PO DAILY fluoxetine 20 mg capsule 60 mg PO DAILY levetiracetam 1,000 mg tablet 1,000 mg PO BID Discharge Orders: Discharge ED (Routine); Ordered 11/22/23 Ordered By: Octaviano Nolan Referrals: Isaiah Mathur DO [Primary Care Provider] - Discharge Diet: Usual diet Discharge Activity: Resume usual activity Patient Instructions: Opioid Safety, Pain Management Activity Restrictions/Additional Instructions: Activity Restrictions/Additional Instructions: Thank you for choosing [facility] for your healthcare needs today. Please realize that you were seen in the Emergency Department and that we are providing you with an emergency medical screening exam and this may not be a complete and all inclusive of all the testing and or medical work-up that you may need to determine your ailment or severity of your illness. It is very important that you follow-up as instructed with your Primary care provider or Specialist for additional evaluation and to discuss your medical treatment plan. You may return to the Emergency Department should you have concerns or if your condition changes or worsens in any way. Coding Level of Care Code ED House Director for Jose Horvath
[2023-11-22 13:57] VITALS: BP 148/94; PULSE 103; RESP 16; O2SAT 98
--- NOTE | 2023-11-22 14:00 | PC.NURSE ---
seizure pads on one rail of bed, pt refused to have pad on his left side stating he needs to be able to hold on to the rail for his comfort
[2023-11-22 14:03] LABS: Glucose Point of Care 132 mg/dL (70-110)
[2023-11-22 14:04] LABS: Basophils # 0.1 10^3/uL (0.0-0.1); Basophils % 0.6 %; Eosinophils % 0.2 %; Hematocrit 40.2 % (37-53); Lymphocytes # 2.7 10^3/uL (0.8-4.8); Lymphocytes % 31.1 %; Mean Corpuscular HGB Conc 34.6 g/dL (30-55); Mean Corpuscular Hemoglobin 31.7 pg (27-33); Mean Corpuscular Volume 91.6 fl (82-101); Mean Platelet Volume 9.4 fL (7.4-10.4); Monocytes # 0.6 10^3/uL (0.2-0.9); Monocytes % 6.5 %; Neutrophils # 5.27 10^3/uL (1.8-7.7); Neutrophils % 61.4 %; Nucleated Red Blood Cells % 0 %; Platelet Count 312 10^3/cmm (157-399); Red Blood Count 4.39 10^6/uL (3.85-5.65); Red Cell Distribution Width 12.6 % (12.1-15.1); White Blood Count 8.59 10^3/uL (3.29-11.43)
[2023-11-22 14:22] LABS: Alanine Aminotransferase 28 U/L (0-41); Albumin Level 4.5 g/dL (3.5-5.2); Alkaline Phosphatase 96 U/L (40-130); Anion Gap 15.8 (5-19); Aspartate Amino Transferase 38 U/L (0-40); Blood Urea Nitrogen 13 mg/dL (6-20); Calcium 9.2 mg/dL (8.5-10.5); Carbon Dioxide 26 mmol/L (22-29); Chloride 99 mmol/L (98-107); Globulin 3.1 g/dL (1.3-4.6); Glomerular Filtration Rate 128.3 mL/min (90-130); Glucose 140 mg/dL (65-115); Osmolality Calculated 286 mOsm/kg (285-295); Potassium 3.8 mmol/L (3.5-5.1); Sodium 137 mmol/L (136-145); Total Bilirubin 0.2 mg/dL (0.15-1.2); Total Protein 7.6 g/dL (6.6-8.7)
[2023-11-22] MEDS: levETIRAcetam 1,000 MG/100 ML PREMIX 400 MG IV (14:26)
[2023-11-22 14:31] LABS: Add Urine Microscopic? NO; Charge for UA Resulting for Rev
[2023-11-22] MEDS: acetaminophen 325 mg Tablet 650 MG PO (14:44)
[2023-11-22 14:46] LABS: Bilirubin Urine Neg (Negative); Blood Urine Neg (Negative); Glucose Urine UA Norm (Normal); Ketones Urine Negative (Negative); Leukocyte Esterase Urine Negative (Negative); Nitrate Urine Negative (Negative); Protein Urine Neg (Negative); Urine Appearance Clear (CLEAR); Urine Color Yellow (Yellow); Urobilinogen Urine Norm (Negative); pH Urine 5 (5-7)
[2023-11-22 14:49] LABS: Prolactin 15.01 ng/mL (4.0-15.2)
[2023-11-22 14:51] LABS: Amphetamines Screen Urine Negative (Negative); Barbiturates Screen Urine Negative (Negative); Benzodiazepines Screen Urine Positive (Negative); Cocaine Screen Urine Negative (Negative); Opiate Screen Urine Negative (Negative); PCP Screen Urine Negative (Negative); THC Screen Urine Positive (Negative)
[2023-11-22 15:00] VITALS: BP 121/88; PULSE 94; RESP 18; O2SAT 92
--- NOTE | 2023-11-22 15:28 | PC.NURSE ---
Pt came out to the hallway, angry, wanting IV out and wanting to leave. IV was removed by Giovanna SUÁREZ with catheter intact. Pt refused dc paperwork, left the ER ambulatory
== END 2023-11-22 15:35 | disposition home or self-care (01) ==
PROVIDERS: Emergency Provider Internal Medicine; PCP Family Medicine
DX: R56.9 Unspecified convulsions (principal); G44.319 Acute post-traumatic headache, not intractable; Z79.891 Long term (current) use of opiate analgesic
CPT/HCPCS: 36416; 70450; 72125; 80053; 80306; 81003; 82962; 83605; 84146; 85025; 93005; 96374; 99285; J1953

== ENCOUNTER 2024-04-30 15:02 | Emergency (ER) | payer BC, MEDICAID, SELFPAY ==
--- NOTE | 2024-04-30 15:05 | XRR_ITS ---
PROCEDURE INFORMATION: Exam: XR Chest Exam date and time: 04/30/2024 3:26 PM Age: 34 years old Clinical indication: Pain; Angina pectoris; Additional info: Cp TECHNIQUE: Imaging protocol: Radiologic exam of the chest. Views: 1 view. COMPARISON: CR (CHEST, ) 08/25/2023 11:16 PM FINDINGS: Lungs: Unremarkable. No consolidation. Pleural spaces: Unremarkable. No pleural effusion. No pneumothorax. Heart/Mediastinum: Unremarkable. No cardiomegaly. Bones/joints: Unremarkable. XR/XR chest 1V portable [id number] IMPRESSION: No acute findings.
--- NOTE | 2024-04-30 15:05 | ECG_ITS ---
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 Measurements Intervals [place] Rate: 131 P: 56 [place]: 140 QRS: 36 QRSD: 90 T: 60 QT: 382 QTc: 565 Interpretive Statements SINUS TACHYCARDIA NONSPECIFIC ST & T-WAVE ABNORMALITY ABNORMAL RHYTHM ECG Compared to ECG 11/22/2023 13:38:24 No significant changes Electronically Signed On 04-30-2024 23:28:27 CDT by Lino Albert M.D. [id number]
[2024-04-30 15:08] VITALS: BP 148/81; PULSE 129; RESP 16; TEMP 37.5; O2SAT 95
[2024-04-30 15:57] LABS: Basophils # 0.1 10^3/uL (0.0-0.1); Basophils % 0.4 %; Hematocrit 40.8 % (37-53); Lymphocytes % 9.4 %; Mean Corpuscular HGB Conc 35.8 g/dL (30-55); Mean Corpuscular Hemoglobin 31.1 pg (27-33); Mean Corpuscular Volume 86.8 fl (82-101); Mean Platelet Volume 9.5 fL (7.4-10.4); Monocytes # 1.4 10^3/uL (0.2-0.9); Neutrophils # 17.06 10^3/uL (1.8-7.7); Neutrophils % 82.7 %; Nucleated Red Blood Cells % 0 %; Platelet Count 326 10^3/cmm (157-399); Red Cell Distribution Width 12.2 % (12.1-15.1); White Blood Count 20.65 10^3/uL (3.29-11.43)
[2024-04-30 16:16] LABS: Troponin(5th) Baseline 13 ng/L (0-15)
[2024-04-30 16:19] LABS: Alanine Aminotransferase 26 U/L (0-41); Alkaline Phosphatase 96 U/L (40-130); Anion Gap 16.3 (5-19); Aspartate Amino Transferase 63 U/L (0-40); Blood Urea Nitrogen 14 mg/dL (6-20); Calcium 9.9 mg/dL (8.5-10.5); Carbon Dioxide 27 mmol/L (22-29); Chloride 94 mmol/L (98-107); Creatinine Clr Calc Pharmacy 101.9425; Globulin 2.4 g/dL (1.3-4.6); Glomerular Filtration Rate 84.5 mL/min (90-130); Glucose 81 mg/dL (65-115); Lipase 16 U/L (13-60); Osmolality Calculated 276 mOsm/kg (285-295); Potassium 4.3 mmol/L (3.5-5.1); Sodium 133 mmol/L (136-145); Total Bilirubin 0.4 mg/dL (0.15-1.2); Total Protein 7.4 g/dL (6.6-8.7)
== END 2024-04-30 16:35 | disposition left against medical advice (07) ==
PROVIDERS: Emergency Medicine; Emergency Provider Family Medicine; PCP Family Medicine
DX: Z53.21 Procedure and treatment not carried out due to patient leaving prior to being seen by health care provider (principal)
CPT/HCPCS: 36415; 71045; 80053; 83690; 84484; 85025; 93005; 99285

== ENCOUNTER → 2024-05-05 11:42 | Outpatient (BNVA) | payer OTHER, SELFPAY | PROVIDERS: PCP Family Medicine; Visit Provider Psychiatry & Neurology Psychiatry | DX: F90.1 Attention-deficit hyperactivity disorder, predominantly hyperactive type (principal); F41.1 Generalized anxiety disorder | CPT/HCPCS: 80061; 83036 ==

== ENCOUNTER → 2024-07-01 11:58 | Outpatient (BNVA) | payer BC, SELFPAY ==
[2024-06-09 08:00] VITALS: BP 126/85; BMI 27.7
== END ==
PROVIDERS: PCP Family Medicine; Visit Provider Nurse Practitioner
DX: J06.9 Acute upper respiratory infection, unspecified (principal)
CPT/HCPCS: 87426

== ENCOUNTER 2024-08-11 18:03 | Emergency (ER) | payer BC, MEDICAID, SELFPAY ==
[2024-06-09 08:00] VITALS: BP 126/85; BMI 27.7
[2024-08-11 18:07] VITALS: BP 135/82; PULSE 83; TEMP 36.7; O2SAT 97; BMI 26.9
--- NOTE | 2024-08-11 18:21 | XRR_ITS ---
PROCEDURE INFORMATION: Exam: XR Right Knee Exam date and time: 08/11/2024 6:34 PM Age: 34 years old Clinical indication: Pain; Knee and other: RT knee popped; Right TECHNIQUE: Imaging protocol: Radiologic exam of the right knee. Views: 3 views. COMPARISON: No relevant prior studies available. FINDINGS: Bones/joints: There appears to be some lateral subluxation of the patella. Negative for fracture. Joint spaces are preserved. Soft tissues: Normal. XR/XR knee RT 3V* [id number] IMPRESSION: There appears to be some lateral subluxation of the patella.
--- NOTE | 2024-08-11 18:50 | XRR_ITS ---
PROCEDURE INFORMATION: Exam: XR Right Ankle Exam date and time: 08/11/2024 6:56 PM Age: 34 years old Clinical indication: Pain; Ankle; Right TECHNIQUE: Imaging protocol: Radiologic exam of the right ankle. Views: 3 or more views. COMPARISON: CR (LOW EXM, ) 08/11/2024 6:34 PM FINDINGS: Bones/joints: Questionable avulsion fracture at the dorsal aspect of the navicular bone. Soft tissues: Normal. XR/XR ankle RT min 3V* [id number] IMPRESSION: Questionable avulsion fracture at the dorsal aspect of the navicular bone, correlate for any point tenderness in this region.
--- NOTE | 2024-08-11 19:16 | W.ED.EXTPRO ---
HPI - Extremity Problem General: Chief complaint: Extremity Injury, Lower Stated complaint: Rt Knee Popped out of Place\Ankle Pain Time Seen by Provider: 08/11/24 18:20 Source: patient Mode of arrival: ambulatory Limitations: no limitations History of Present Illness: Patient is a 34-year-old male with psychiatric history who presents the emergency department complaining of right knee pain onset this morning. Patient states he was shoveling snow, felt a pop in his knee. States that he has had this happen before, has also had to have fluid drained from his knee before. No history of surgery. States that he thought his kneecap came out of place earlier has since popped back in. States however that he is having severe pain with ambulation. Has been taking Tylenol throughout the day, no relief. Also states he is having pain radiating down the right lateral leg towards his ankle, he has never had this happen before. Vital stable at this time, no recent illnesses or infections. No direct trauma to his knee, no twisting injury. MD Complaint: joint pain Onset (ago): hour(s) Pain Consistency: constant Location: right and lower extremity Radiation: distal Exacerbating factors: range of motion and weight bearing Associated symptoms: Deny chest pain, fever(s) or rash Related Data Home Medications Medication Instructions Recorded Confirmed meclizine 25 mg tablet (Dramamine 50 mg PO BID PRN 05/05/24 07/01/24 Less Drowsy) acetaminophen 500 mg tablet 1,000 mg PO Q6H PRN pain 05/30/24 07/01/24 (Tylenol Extra Strength) melatonin 5 mg tablet 25 mg PO .q hs PRN 05/30/24 07/01/24 methadone 10 mg tablet 110 mg PO DAILY 05/30/24 07/01/24 Previous Rx's Medication Instructions Recorded levetiracetam 1,000 mg tablet See Rx Instructions .Route 04/23/24 .COMPLEX #180 tabs fluoxetine 40 mg capsule 80 mg (2 x 40 mg) PO DAILY #60 caps 05/30/24 amoxicillin 875 mg-potassium 1 tab PO BID 7 days #14 tabs 07/01/24 clavulanate 125 mg tablet pregabalin 100 mg capsule 100 mg PO TID #90 caps 07/17/24 Allergies Allergy/AdvReac Type Severity Reaction Status Date / Time venom-wasp Allergy Severe Unknown Verified 08/11/24 18:11 NSAIDS (Non-Steroidal Allergy Intermediate hives Verified 08/11/24 18:11 Anti-Inflamma urinating orange prednisone Allergy ALGY-Anaphy Verified 08/11/24 18:11 laxis azithromycin AdvReac rash Verified 08/11/24 18:11 Review of Systems General: Reports: 10 or more systems reviewed and unremarkable except in HPI and below Const: Denies: fever(s) or chills Card: Denies: chest pain Resp: Denies: dyspnea or productive cough GI: Denies: abdominal pain, nausea, vomiting or diarrhea : Denies: flank pain Musc: Reports: joint pain (Right knee and right ankle) and limited range of motion (Right lower extremity); Denies: neck pain, back pain, extremity pain, extremity swelling, joint swelling, joint redness, joint warmth or muscle weakness Skin/Breast: Denies: rash Neuro: Denies: headache(s), numbness in extremities or weakness in extremities PFSH ED PFSH: Medical History Chronic back pain greater than 3 months duration Hearing loss Generalized epilepsy Substance use disorder now going to daily [facility] for methadone Anxiety Psychiatric care Depression ADD (attention deficit disorder) Primary generalized epilepsy, major Family History Mother CAD (coronary artery disease), Onset Age: 37 first [facility] age 37 Stroke Other Cancer Diabetes Hypertension Social History Smoking and tobacco/nicotine status: current every day tobacco/nicotine user cigarettes Packs smoked per day: 1 Years cigarettes smoked: 22 [ Other cigarette details: he is cutting down--now to 0.5ppd] Quit status (tobacco/nicotine): has tried quititng Second hand smoke exposure: Yes Alcohol intake: current Alcohol intake frequency: 0-2 Drinks per Day Alcohol type: beer Substance/Drug Use: former Former substance use details: was on oxycontin--not Rxed, now goes to [facility] and does daily methadone Adopted: No Caregiver/support person: No Lives independently: Yes Household members: significant other and children Housing: Manufactured/Mobile home Marital status: Single Marital status details: working on a divorce Number of children: 1 Number of grandchildren: 0 Highest education level completed: GED or Equivalent service: No Current occupational status: other 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; 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 [employer] Current occupational exposures/hazards: No Pets and animals: No Leisure activites: other Leisure activities details: helps take care of his mother and step father Sexually active: No Do you think of yourself as: Straight/Heterosexual Current gender identity: Male Abigail/Sabianist: Buddhist Special abigail needs: No Agree to transfusion: Yes Physical Exam Const: COMMON NORMALS: no acute distress, patient oriented x3, no limitations, healthy appearing, alert and well nourished HENMT: COMMON NORMALS: normocephalic and atraumatic HEAD & SCALP: normocephalic and atraumatic Neck/C-Spine: COMMON NORMALS: full ROM, supple and no meningeal signs Resp: COMMON NORMALS: normal respiratory effort, No use of accessory muscles and clear to auscultation bilaterally AUSCULTATION: clear to auscultation bilaterally Cardio: COMMON NORMALS: regular rate and regular rhythm RATE: regular rate RHYTHM: regular rhythm Extremity: COMMON NORMALS: normal to inspection, full ROM, capillary refill normal, no joint enlargement, no clubbing, cyanosis or edema, no calf tenderness and no pedal edema NARRATIVE EXTREMITY EXAM: No obvious swelling of the right knee compared to the left. No significant reproducible tenderness to palpation, there is pain with active range of motion flexion/extension at the right knee. There is reproducible tenderness to palpation of the distal right lateral esposito extending down to the malleolus, there is no obvious swelling or deformity here. Distal sensations intact, DP/PT pulse 2+. Neuro: COMMON NORMALS: patient oriented x3, moves all extremities, no focal motor deficits and no sensory deficits noted SENSORIUM/ORIENTATION: Yes alert MENINGEAL SIGNS: Yes no meningeal signs Skin: COMMON NORMALS: no rashes or lesions noted GENERAL SKIN EXAM: no rashes or lesions noted Course Vital Signs: Vital signs: Vital Signs Temperature 98.1 F 08/11/24 18:07 Pulse Rate 83 08/11/24 18:07 Blood Pressure 135/82 08/11/24 18:07 Pulse Oximetry 97 08/11/24 18:07 Oxygen Delivery Me thod Room Air 08/11/24 18:07 MDM - Extremity (Nontraumatic) Medical Decision Making Patient presented with right knee and ankle pain today. No injury reported, states he felt a pop in his knee and thought it is dislocated. Had stated has since relocated, still having pain of the right knee. X-ray did show concerns for questionable lateral subluxation of the patella, I think this is projectional he on the x-ray as with attempted manipulation there was no reduction and symmetrically the knees appeared the same. Questionable fracture at the right navicular bone avulsion injury, will refer to podiatry splint and nonweightbearing with crutches conservatively. Gave [place] here for pain relief, strict return precautions given. Patient and family in room okay with discharge at this time. Case discussed with Dr. Cannon. Lab Data Radiology Impressions Knee X-Ray 08/11/24 18:21 IMPRESSION: There appears to be some lateral subluxation of the patella. Ankle X-Ray 08/11/24 18:50 IMPRESSION: Questionable avulsion fracture at the dorsal aspect of the navicular bone, correlate for any point tenderness in this region. All radiology interpretation(s) finalized by discharge Discharge Plan Discharge Patient Disposition: Home Clinical Impression: Subluxation of right patella Qualifiers: Encounter type: initial encounter Qualified Code(s): S83.001A - Unspecified subluxation of right patella, initial encounter Closed navicular fracture of right ankle Qualifiers: Encounter type: initial encounter Fracture alignment: nondisplaced Qualified Code(s): S92.254A - Nondisplaced fracture of navicular [scaphoid] of right foot, initial encounter for closed fracture Condition: Stable Prescriptions: No Action amoxicillin-pot clavulanate 875-125 mg tablet 1 tab PO BID 7 Days Qty: 14 0RF meclizine [Dramamine Less Drowsy] 25 mg tablet 50 mg PO BID PRN acetaminophen [Tylenol Extra Strength] 500 mg tablet 1,000 mg PO Q6H PRN (Reason: pain) melatonin 5 mg tablet 25 mg PO .q hs PRN methadone 10 mg tablet 110 mg PO DAILY Patient Comments: administered at [facility] fluoxetine 40 mg capsule 80 mg PO DAILY Qty: 60 2RF levetiracetam 1,000 mg tablet See Rx Instructions .ROUTE .COMPLEX Qty: 180 3RF Dose Instruction: TAKE ONE TABLET BY MOUTH TWICE DAILY Rx Instructions: TAKE ONE TABLET BY MOUTH TWICE DAILY pregabalin 100 mg capsule 100 mg PO TID Qty: 90 0RF Discharge Orders: Discharge ED (Routine); Ordered 08/11/24 Ordered By: Leighton Cannon Referrals: Мария Oreilly MD [Primary Care Provider] - Patient Instructions: Foot Fracture in Adults (ED) Activity Restrictions/Additional Instructions: Splint and nonweightbearing as discussed. Follow-up with podiatry. Rest and elevation of the extremity, Tylenol for pain. Please return with any new or concerning. Stand Alone Forms: Work/School Release Coding Level of Care Code ED Field Hockey Coach for Jose Horvath
[2024-08-11] MEDS: HYDROcodone-acetaminophen 5-325 mg Tablet 1 TAB PO (19:47)
[2024-08-11 20:40] VITALS: BP 122/72; PULSE 68; O2SAT 95
--- NOTE | 2024-08-12 07:22 | DCPLANNER ---
message sent to podiatry for rt ankle fx.
== END 2024-08-11 20:45 | disposition home or self-care (01) ==
PROVIDERS: Emergency Provider Physician Assistant; PCP Family Medicine
DX: S83.001A Unspecified subluxation of right patella, initial encounter (principal); S92.254A Nondisplaced fracture of navicular [scaphoid] of right foot, initial encounter for closed fracture; F17.210 Nicotine dependence, cigarettes, uncomplicated; X58.XXXA Exposure to other specified factors, initial encounter
CPT/HCPCS: 29515; 73562; 73610; 99284; E0114

== ENCOUNTER 2024-08-15 15:49 | Outpatient (CLI) | payer BC, MEDICAID, SELFPAY ==
[2024-06-09 08:00] VITALS: BP 126/85; BMI 27.7
--- NOTE | 2024-08-15 16:00 | MR_ITS ---
WS: [id number] MRI RIGHT ANKLE WITHOUT CONTRAST. COMPARISON: 08/11/2024 Multiplanar, multisequence imaging is performed without contrast. No acute marrow edema or fracture identified. No osteochondral lesions. No joint effusion. Syndesmosi s is intact. Achilles tendon is normal. Flexion and extension tendons are normal. No fluid in the tendon sheaths. High-grade tear of the ante rior talofibular ligament from the talus. The posterior talofibular ligament is normal. Normal deltoi d ligament. Normal calcaneofibular ligament. Normal sinus Tarsi. MR/MR ankle RT wo con* [id number] IMPRESSION: 1. No acute fracture or marrow edema. 2. High-grade tear of the anterior talofibular ligament from the talus. 3. No additional tendon or ligament tears identified.
== END 2024-08-15 15:50 | disposition home or self-care (01) ==
PROVIDERS: PCP Family Medicine; Visit Provider Podiatrist Foot & Ankle Surgery
DX: S93.491A Sprain of other ligament of right ankle, initial encounter (principal); X58.XXXA Exposure to other specified factors, initial encounter
CPT/HCPCS: 73721

== ENCOUNTER 2024-11-19 08:46 | Outpatient (CLI) | payer BC, MEDICAID, SELFPAY ==
[2024-06-09 08:00] VITALS: BP 126/85; BMI 27.7
--- NOTE | 2024-11-19 09:30 | MR_ITS ---
WS: [id number] MRI RIGHT KNEE HISTORY: R knee pain, patellar sublaxation COMPARISON: Radiograph 08/11/2024 Anterior cruciate ligament: Intermediate signal throughout the ACL. The fibers are predominantly intact and coarse normally. This is most consistent with mucoid degeneration. No fluid gap. Posterior cruciate ligament: Intact. Medial collateral ligament: Intact. Posterior lateral corner structures: Intact. Medial menisci: Intact. Normal signal, size and shape. Lateral meniscus: Intact. Normal signal, size and shape. Extensor mechanism: Distal quadriceps tendon and patellar tendons are intact. Fluid and soft tissue: Small to moderate suprapatellar joint effusion. Small Brunson's cyst. Osseous and articular structures: Patellofemoral compartment: Moderate lateral subluxation of the patella with loss of cartilage. There is bone upon bone involving the medial patellar facet and the lateral femoral condyle. 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 Medial compartment: Mild narrowing of the medial compartment with mild chondromalacia. Lateral compartment: Mild narrowing of the lateral compartment with no marrow edema. MR/MR knee RT wo con* [id number] IMPRESSION: 1. Moderate lateral subluxation of the patella. Loss of the normal patellar em inence with bone upon bone of the lateral femoral condyle and the medial patell ar facet. No acute fracture. Chronic subluxation due to the bone deformity. 2. 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 3. Diffuse loss of cartilage involving the patella. 4. Small to moderate suprapatellar joint effusion. 5. Small Brunson's cyst. 6. Mucoid degeneration of the ACL.
== END 2024-11-19 08:47 | disposition home or self-care (01) ==
LOC: RAD 08:47
PROVIDERS: PCP Family Medicine; Visit Provider Family Medicine
DX: M22.11 Recurrent subluxation of patella, right knee (principal); R93.6 Abnormal findings on diagnostic imaging of limbs; M25.461 Effusion, right knee; M71.21 Synovial cyst of popliteal space [Baker], right knee; M94.261 Chondromalacia, right knee
CPT/HCPCS: 73721

== ENCOUNTER 2025-01-22 20:13 | Emergency (ER) | payer BC, MEDICAID, SELFPAY ==
[2024-06-09 08:00] VITALS: BP 126/85; BMI 27.7
[2025-01-22 20:18] VITALS: BP 126/83; PULSE 90; RESP 18; TEMP 36.9; O2SAT 94; BMI 30.4
--- NOTE | 2025-01-22 20:19 | ECG_ITS ---
[facility] Test Date: 2025-01-22 Pat Name: Steven Ricardo Department: Room: Gender: Male Sample Case Porter: : 1990 Requested By: Isaiah Goldstein Order Number: [id number] Reading MD: Measurements Intervals [place] Rate: 78 P: 46 UT: 175 QRS: 3 QRSD: 94 T: 19 QT: 383 QTc: 437 Interpretive Statements SINUS RHYTHM POSSIBLE LEFT ATRIAL ENLARGEMENT [-0.1mV P-WAVE IN V1/V2] No previous ECG available for comparison [email or web address]
[2025-01-22 20:21] VITALS: BP 132/97; PULSE 85; O2SAT 91
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
[2025-01-22 20:37] LABS: Basophils # 0.1 10^3/uL (0.0-0.1); Basophils % 0.7 %; Eosinophils # 0.2 10^3/uL (0.0-0.8); Eosinophils % 2.1 %; Lymphocytes # 3.5 10^3/uL (0.8-4.8); Lymphocytes % 35.8 %; Mean Corpuscular HGB Conc 33.9 g/dL (30-55); Mean Corpuscular Hemoglobin 29.6 pg (27-33); Mean Corpuscular Volume 87.2 fl (82-101); Mean Platelet Volume 9.6 fL (7.4-10.4); Monocytes # 0.7 10^3/uL (0.2-0.9); Monocytes % 7.4 %; Neutrophils # 5.26 10^3/uL (1.8-7.7); Neutrophils % 53.7 %; Nucleated Red Blood Cells % 0 %; Platelet Count 319 10^3/cmm (157-399); Red Cell Distribution Width 13.6 % (12.1-15.1); White Blood Count 9.82 10^3/uL (3.29-11.43)
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
[2025-01-22 20:45] LABS: Alanine Aminotransferase 40 U/L (0-41); Albumin Level 4.5 g/dL (3.5-5.2); Alkaline Phosphatase 140 U/L (40-130); Aspartate Amino Transferase 30 U/L (0-40); Blood Urea Nitrogen 13 mg/dL (6-20); Calcium 9.9 mg/dL (8.5-10.5); Carbon Dioxide 26 mmol/L (22-29); Chloride 98 mmol/L (98-107); Creatine Phosphokinase 185 U/L (39-308); Creatinine Clr Calc Pharmacy 131.0321; Globulin 3.2 g/dL (1.3-4.6); Glomerular Filtration Rate 109.4 mL/min (90-130); Glucose 75 mg/dL (65-115); Osmolality Calculated 285 mOsm/kg (285-295); Sodium 138 mmol/L (136-145); Total Bilirubin 0.3 mg/dL (0.15-1.2); Total Protein 7.7 g/dL (6.6-8.7)
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
[2025-01-22 21:09] VITALS: RESP 20
[2025-01-22] MEDS: oxyCODONE-APAP 5-325 mg Tablet 1 TAB PO ×2 (21:09→23:26)
[2025-01-22] MEDS: sodium chloride 0.9% 1,000 ML 999 ML IV (21:10)
[2025-01-22 21:16] VITALS: BP 116/81; PULSE 72; RESP 16; O2SAT 95
[2025-01-22 21:33] VITALS: BP 107/76; PULSE 71; RESP 15; O2SAT 96
== END 2025-01-22 23:34 | disposition home or self-care (01) ==
PROVIDERS: Emergency Provider Student in an Organized Health Care Education/Training Program; PCP Family Medicine
DX: S09.93XA Unspecified injury of face, initial encounter (principal); W22.8XXA Striking against or struck by other objects, initial encounter; F17.210 Nicotine dependence, cigarettes, uncomplicated
CPT/HCPCS: 70450; 71045; 72170; 73552; 80053; 82550; 85025; 93005; 96360; 96361; 99285; J7030; J9999

== ENCOUNTER 2025-07-06 20:35 | Emergency (ER) | payer MEDICAID, SELFPAY ==
[2024-06-09 08:00] VITALS: BP 126/85; BMI 27.7
[2025-07-06 20:48] VITALS: BP 195/81; PULSE 70; RESP 16; TEMP 36.3; O2SAT 98; BMI 25.8
[2025-07-06 21:12] VITALS: BP 128/76; PULSE 77; O2SAT 96
[2025-07-06] MEDS: levETIRAcetam 2,000 MG/200 ML PREMIX 400 MG IV (21:13)
[2025-07-06 21:16] LABS: Hematocrit 41.8 % (37-53); Hemoglobin 14.60 g/dL (11.27-16.99); Mean Corpuscular HGB Conc 34.9 g/dL (30-55); Mean Corpuscular Hemoglobin 30.5 pg (27-33); Mean Corpuscular Volume 87.3 fl (82-101); Nucleated Red Blood Cells % 0 %; Platelet Count 311 10^3/cmm (157-399); Red Blood Count 4.79 10^6/uL (3.85-5.65); White Blood Count 11.21 10^3/uL (3.29-11.43)
--- NOTE | 2025-07-06 21:20 | W.ED.SEIZURE ---
HPI - Seizure General: Chief Complaint: Seizure Stated Complaint: Seizure at work, Dizzy unbalanced Time Seen by Provider: 07/06/25 21:03 History of Present Illness: HPI Narrative: 35-year-old man with a history of seizure disorder, ADHD, anxiety, depression, PTSD, who presents emergency room after having had a seizure today at work. It was witnessed. Unclear how long it lasted. He says he is unsure if he took his Keppra or might have taken an extra dose of Keppra today. He says he feels more out of sorts than he usually does after a seizure. He says he hurts all over but there is no focal injuries. No tongue lacerations. No loss of bowel or bladder. No chest pain. No cough. No dysuria. No abdominal pain. No nausea or vomiting. Related Data Home Medications ?Medication ?Instructions ?Recorded ?Confirmed acetaminophen 500 mg tablet 1,000 mg PO Q6H PRN pain 05/30/24 03/02/25 (Tylenol Extra Strength) melatonin 5 mg tablet 25 mg PO .q hs PRN 05/30/24 03/02/25 Previous Rx's ?Medication ?Instructions ?Recorded CAM boot #1 ea 08/13/24 right knee patellar stabelizer #1 ea 11/27/24 brace Right knee patella stabelizer brace #1 ea 12/04/24 gabapentin 800 mg tablet 800 mg PO TID #90 tabs 03/12/25 levetiracetam 1,000 mg tablet See Rx Instructions .Route 04/29/25 .COMPLEX #180 tabs bupropion HCl 150 mg 24 hr tablet, See Rx Instructions .Route 05/14/25 extended release .COMPLEX #30 tabs meloxicam 15 mg tablet 15 mg PO DAILY back pain #30 tabs 06/04/25 fluoxetine 20 mg capsule See Rx Instructions .Route 06/10/25 .COMPLEX #30 caps fluoxetine 40 mg capsule See Rx Instructions .Route 06/10/25 .COMPLEX #30 caps Allergies Allergy/AdvReac Type Severity Reaction Status Date / Time venom-wasp Allergy Severe Unknown Verified 03/02/25 14:22 NSAIDS (Non-Steroidal Allergy Intermediate hives Verified 03/02/25 14:22 Anti-Inflamma urinating orange prednisone Allergy ALGY-Anaphy Verified 03/02/25 14:22 laxis azithromycin AdvReac rash Verified 03/02/25 14:22 Review of Systems Narrative: Constitutional symptoms: Negative except as documented in HPI. Skin symptoms: Negative except as documented in HPI. Eye symptoms: Negative except as documented in HPI. ENMT symptoms: Negative except as documented in HPI. Respiratory symptoms: Negative except as documented in HPI. Cardiovascular symptoms: Negative except as documented in HPI. Gastrointestinal symptoms: Negative except as documented in HPI. Genitourinary symptoms: Negative except as documented in HPI. Musculoskeletal symptoms: Negative except as documented in HPI. Neurologic symptoms: Negative except as documented in HPI. Psychiatric symptoms: Negative except as documented in HPI. Endocrine symptoms: Negative except as documented in HPI. 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--didn't help; trazodone knocked him out; hydroxyzine didn't help with anxiety; buspar didn't help; abilify helped but then started getting angry, when he was young was on depakote; Recurrent subluxation of patella, right knee Chronic back pain greater than 3 months duration goes to methadone clinic for RAFA Hearing loss Generalized epilepsy Substance use disorder was on methadone through [facility]--now weaned off 12/21 Anxiety Psychiatric care ADD (attention deficit disorder) Primary generalized epilepsy, major Family History Mother CAD (coronary artery disease), Onset Age: 37 first [place] age 35 Stroke Other Cancer Diabetes Hypertension Social History Smoking and tobacco/nicotine status: current every day tobacco/nicotine user cigarettes Packs smoked per day: 1 Years cigarettes smoked: 22 [ Other cigarette details: he is cutting down--now to 0.5ppd] Quit status (tobacco/nicotine): has tried quititng Second hand smoke exposure: Yes Alcohol intake: current Alcohol intake frequency: 0-2 Drinks per Day Alcohol type: beer Substance/Drug Use: former Former substance use details: was on oxycontin--not Rxed, now goes to [facility] and does daily methadone Adopted: No Caregiver/support person: No Lives independently: Yes Household members: significant other and children Housing: Manufactured/Mobile home Marital status: Single Marital status details: working on a divorce Number of children: 1 Number of grandchildren: 0 Highest education level completed: GED or Equivalent service: No Current occupational status: other 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 Skin: Warm, dry. Head: Normocephalic, atraumatic. Neck: Supple, trachea midline. Eye: Extraocular movements are intact. Ears, nose, mouth and throat: mucosa moist. Cardiovascular: Regular, Normal peripheral perfusion. Respiratory: Lungs are clear to auscultation, respirations are non-labored, breath sounds are equal, Symmetrical chest wall expansion. Gastrointestinal: Soft, Nontender, Non distended Musculoskeletal: Normal ROM, no deformity. Neurological: Alert and oriented, No focal neurological deficit observed. Psychiatric: Cooperative, appropriate mood & affect. Course Vital Signs: Vital signs: Vital Signs Temperature 97.3 F L 07/06/25 20:48 Pulse Rate 66 07/06/25 22:00 Respiratory Rate 16 07/06/25 20:48 Blood Pressure 135/102 07/06/25 22:00 Pulse Oximetry 92 07/06/25 22:00 Oxygen Delivery Me thod Room Air 07/06/25 22:00 MDM - Seizure MDM Narrative Medical decision making narrative: Medical decision making Patient's reason for coming to the emergency room: Seizure Social determinants: Patient is employed. Accompanied by life partner I reviewed the patient's medical record. 35-year-old man with a history of seizure disorder, ADHD, anxiety, depression, PTSD, I reviewed the patient's current home meds Patient is on Keppra 1000 mg at home. Bupropion and fluoxetine Alternate historians: None Differential diagnosis for this patient with a complaint of seizure like activity would include but not be limited to, and based on the above HPI, review of systems and physical exam: seizure, DT's, alcohol withdrawal, brain malignancy, pseudo-seizure, syncope. Orders placed to evaluate differential diagnosis based on the above differential, HPI and physical exam CT head: No acute intracranial process. No intracranial hemorrhage, no evidence of infarct. No evidence of acute fracture. This was reviewed and interpreted by myself the emergency room physician. I also reviewed the radiology report. Lab Review: Laboratory results were reviewed and interpreted by myself the emergency room physician. No leukocytosis. No anemia. No renal failure. Flu COVID RSV are negative. Liver enzymes are normal. Lactic acid is negative so likely he did not have an extended tonic-clonic seizure. Assessment of risk: Level of risk: Moderate risk patient. Hospitalization considerations: No further seizures so no indication for hospitalization Reexamination: Patient remained stable. No increased work of breathing. No altered mental status. No focal motor deficits. Assessment and plan: Seizure Dehydration ? IV Zofran, IV fluids, IV Tylenol and the p.o. [place] - Discharged home - Discussed plan with patient. Answered any questions. - Evaluation and treatment of this problem were appropriate in the emergency setting. Lab Data 07/06/25 21:08 07/06/25 21:08 Labs: Radiology Impressions Head CT 07/06/25 21:28 IMPRESSION: No acute intracranial abnormality. Laboratory Results WBC 11.21 10^3/uL (3.29-11.43) 07/06/25 21: RBC 4.79 10^6/uL (3.85-5.65) 07/06/25 21:08 Hgb 14.60 g/dL (11.27-16.99) 07/06/25 21:08 Hct 41.8 % (37-53) 07/06/25 21:08 MCV 87.3 fl (82-101) 07/06/25 21:08 MCH 30.5 pg (27-33) 07/06/25 21:08 MCHC 34.9 g/dL (30-55) 07/06/25 21:08 RDW 12.5 % (12.1-15.1) 07/06/25 21:08 Plt Count 311 10^3/cmm (157-399) 07/06/25 21:08 MPV 8.9 fL (7.4-10.4) 07/06/25 21:08 Neut % (Auto) 70.8 % 07/06/25 21:08 Lymph % (Auto) 22.0 % 07/06/25 21:08 Stanton % (Auto) 5.4 % 07/06/25 21:08 Eos % (Auto) 1.1 % 07/06/25 21:08 Baso % (Auto) 0.4 % 07/06/25 21:08 Neut # (Auto) 7.94 10^3/uL (1.8-7.7) H 07/06/25 21:08 Lymph # (Auto) 2.5 10^3/uL (0.8-4.8) 07/06/25 21:08 Stanton # (Auto) 0.6 10^3/uL (0.2-0.9) 07/06/25 21:08 Eos # (Auto) 0.1 10^3/uL (0.0-0.8) 07/06/25 21:08 Baso # (Auto) 0.1 10^3/uL (0.0-0.1) 07/06/25 21:08 Nucleated RBC % (auto) 0 % 07/06/25 21:08 Nucleated RBCs # 0.0 /100WBC 07/06/25 21:08 Specimen Type Arterial 07/06/25 22:06 Sample Site Brachial, left 07/06/25 22:06 ABG pH 7.40 (7.35-7.45) 07/06/25 22:06 ABG pCO2 45.4 mmHg (35-45) H 07/06/25 22:06 ABG pO2 69.3 mmHg (80.0-100.0) L 07/06/25 22:06 ABG HCO3 28.1 mmol/L (22-26) H 07/06/25 22:06 ABG O2 Saturation 95.1 07/06/25 22:06 ABG Base Excess 2.6 mmol/L (-2.0-2.0) H 07/06/25 22:06 Jeremy Test N/a 07/06/25 22:06 A-a O2 Gradient 3.3 mmHg (5-10) L 07/06/25 22:06 Hematocrit 42.7 % (42-52) 07/06/25 22:06 Hgb O2 Saturation 89.8 % (95-100) L 07/06/25 22:06 Carboxyhemoglobin 4.4 %THgb (0.4-20.1) 07/06/25 22:06 Methemoglobin 1.1 % (0.4-1.5) 07/06/25 22:06 Total Hemoglobin 13.9 g/dL (14-18) L 07/06/25 22:06 Sodium 139.0 mmol/L (131-143) 07/06/25 22:06 Potassium 3.8 mmol/L (3.5-5.0) 07/06/25 22:06 Glucose 100.0 mg/dL (70-115) 07/06/25 22:06 Ionized Calcium 1.2 mmol/L (1.1-1.4) 07/06/25 22:06 O2 Delivery Device Room air 07/06/25 22:06 Summer Intern ID [email or web address] 07/06/25 22:06 Sodium 138 mmol/L (136-145) 07/06/25 21:08 Potassium 4.0 mmol/L (3.5-5.1) 07/06/25 21:08 Chloride 99 mmol/L (98-107) 07/06/25 21:08 Carbon Dioxide 27 mmol/L (22-29) 07/06/25 21:08 Anion Gap 16.0 (5-19) 07/06/25 21:08 BUN 12 mg/dL (6-20) 07/06/25 21:08 Creatinine 0.9 mg/dL (0.7-1.2) 07/06/25 21:08 GFR Calculation 95.0 mL/min (90-130) 07/06/25 21:08 Glucose 95 mg/dL (65-115) 07/06/25 21:08 Calculated Osmolality 286 mOsm/kg (285-295) 07/06/25 21:08 Lactic Acid 0.8 mmol/L (0.5-2.2) 07/06/25 21:08 Calcium 9.5 mg/dL (8.5-10.5) 07/06/25 21:08 Total Bilirubin 0.3 mg/dL (0.15-1.2) 07/06/25 21:08 AST 24 U/L (0-40) 07/06/25 21:08 ALT 24 U/L (0-41) 07/06/25 21:08 Alkaline Phosphatase 112 U/L (40-130) 07/06/25 21:08 Total Protein 7.8 g/dL (6.6-8.7) 07/06/25 21:08 Albumin 4.6 g/dL (3.5-5.2) 07/06/25 21:08 Globulin 3.2 g/dL (1.3-4.6) 07/06/25 21:08 Ethyl Alcohol < 10 mg/dL (0-10) 07/06/25 21:08 Influenza A (PCR) Negative (Negative) 07/06/25 21:00 Influenza Type B (PCR) Negative (Negative) 07/06/25 21:00 RSV (PCR) Negative (Negative) 07/06/25 21:00 SARS-CoV-2 (PCR) Negative (Negative) 07/06/25 21:00 All radiology interpretation(s) finalized by discharge Discharge Plan Discharge Patient Disposition: Home Clinical Impression: Seizure, Dehydration Condition: Stable Prescriptions: No Action acetaminophen [Tylenol Extra Strength] 500 mg tablet 1,000 mg PO Q6H PRN (Reason: pain) melatonin 5 mg tablet 25 mg PO .q hs PRN (DME) CAM boot See Rx Instructions .Route .MEDSUPPLY Qty: 1 0RF Rx Instructions: As directed to HOME length of need - lifetime may use either short or long boot (DME) right knee patellar stabelizer brace See Rx Instructions .Route .MEDSUPPLY Qty: 1 0RF Rx Instructions: As directed (DME) Right knee patella stabelizer brace See Rx Instructions .Route .MEDSUPPLY Qty: 1 0RF Rx Instructions: As directed gabapentin 800 mg tablet 800 mg PO TID Qty: 90 5RF levetiracetam 1,000 mg tablet See Rx Instructions .ROUTE .COMPLEX Qty: 180 3RF Dose Instruction: TAKE ONE TABLET BY MOUTH TWICE DAILY Rx Instructions: TAKE ONE TABLET BY MOUTH TWICE DAILY bupropion HCl 150 mg tablet extended release 24 hr See Rx Instructions .ROUTE .COMPLEX Qty: 30 1RF Dose Instruction: TAKE ONE TABLET BY MOUTH EVERY MORNING Rx Instructions: TAKE ONE TABLET BY MOUTH EVERY MORNING meloxicam 15 mg tablet 15 mg PO DAILY Qty: 30 0RF fluoxetine 40 mg capsule See Rx Instructions .ROUTE .COMPLEX Qty: 30 0RF Dose Instruction: TAKE ONE CAPSULE BY MOUTH DAILY Rx Instructions: TAKE ONE CAPSULE BY MOUTH DAILY fluoxetine 20 mg capsule See Rx Instructions .ROUTE .COMPLEX Qty: 30 0RF Dose Instruction: TAKE ONE CAPSULE BY MOUTH DAILY with 40mg DOSE Rx Instructions: TAKE ONE CAPSULE BY MOUTH DAILY with 40mg DOSE Discharge Orders: Discharge ED (Routine); Ordered 07/06/25 Ordered By: Meghna Darnell Referrals: Мария Oreilly MD [Primary Care Provider, [facility]] Patient Instructions: Epilepsy (ED), Generalized Tonic Clonic Seizures (ED), Opioid Safety, Pain Management, Patient Portal & Alex Instructions Activity Restrictions/Additional Instructions: No driving until cleared by your primary care provider or a neurologist. Thank you for choosing [facility] for your healthcare needs today. You have been screened and evaluated and felt safe for discharge. Health conditions do change or evolve sometimes and as such it is important that you follow up with your Primary Doctor to be re checked, 3-5 days is a general good time frame for follow up. You are always welcome to return to the ED for re assessment if your symptoms are worsening or you have new concerns Print Language: Telugu Coding Level of Care Code ED Germination Testing Manager for Jose Horvath
--- NOTE | 2025-07-06 21:28 | CTR_ITS ---
PROCEDURE INFORMATION: Exam: CT Head Without Contrast Exam date and time: 07/06/2025 9:40 PM Age: 35 years old Clinical indication: Other: Seizure TECHNIQUE: Imaging protocol: Computed tomography of the head without contrast. Radiation optimization: All CT scans at this facility use at least one of these dose optimization techniques: automated exposure control; mA and/or kV adjustment per patient size (includes targeted exams where dose is matched to clinical indication); or iterative reconstruction. COMPARISON: CT head wo con* [id number] 01/22/2025 8:49 PM RADIATION DOSE METRICS: Total DLP (mGy-cm): 1081.17 FINDINGS: Brain: Normal. No hemorrhage. Unremarkable white matter. No mass effect. Cerebral ventricles: No ventriculomegaly. Paranasal sinuses: Visualized sinuses are unremarkable. No fluid levels. Mastoid air cells: Visualized mastoid air cells are well aerated. Bones: Unremarkable. No acute fracture. Soft tissues: Unremarkable. CT/CT head wo con* [id number] IMPRESSION: No acute intracranial abnormality.
[2025-07-06] MEDS: acetaminophen 1,000 MG/100 ML PIGGYBACK 400 MG IV (21:36)
[2025-07-06 21:37] LABS: Alanine Aminotransferase 24 U/L (0-41); Albumin Level 4.6 g/dL (3.5-5.2); Alkaline Phosphatase 112 U/L (40-130); Anion Gap 16.0 (5-19); Aspartate Amino Transferase 24 U/L (0-40); Blood Urea Nitrogen 12 mg/dL (6-20); Calcium 9.5 mg/dL (8.5-10.5); Carbon Dioxide 27 mmol/L (22-29); Chloride 99 mmol/L (98-107); Globulin 3.2 g/dL (1.3-4.6); Glucose 95 mg/dL (65-115); Osmolality Calculated 286 mOsm/kg (285-295); Potassium 4.0 mmol/L (3.5-5.1); Sodium 138 mmol/L (136-145); Total Protein 7.8 g/dL (6.6-8.7)
[2025-07-06] MEDS: ondansetron 2 mg/ML SDV 2 mL 4 MG IVP (21:37)
[2025-07-06 21:39] LABS: Lactic Sepsis W/Reflex 0.8 mmol/L (0.5-2.2)
[2025-07-06 21:46] LABS: Respiratory Syncytial Virus Ce NEGATIVE (Negative); SARS-CoV-2 PCR NEGATIVE (Negative)
[2025-07-06 22:00] VITALS: BP 135/102; PULSE 66; O2SAT 92
[2025-07-06 22:02] LABS: Alcohol Level < 10 mg/dL (0-10)
[2025-07-06 22:17] LABS: ABG PCO2 45.4 mmHg (35-45); ABG PH Result 7.40 (7.35-7.45); Alveolar-Arterial Oxygen Gradi 3.3 mmHg (5-10); Arterial Blood Gas Hematocrit 42.7 % (42-52); Blood Gas Sample Site Brachial, left; Blood Gas Sample Type Arterial; Carboxyhemoglobin 4.4 %THgb (0.4-20.1); Glucose Level-ABG 100.0 mg/dL (70-115); HCO3 ABG 28.1 mmol/L (22-26); Ionized Calcium Level - ABG 1.2 mmol/L (1.1-1.4); Methemoglobin 1.1 % (0.4-1.5); Oxygen Saturation ABG 95.1; PO2 ABG 69.3 mmHg (80.0-100.0); Potassium Level - ABG 3.8 mmol/L (3.5-5.0); Sodium Level - ABG 139.0 mmol/L (131-143)
[2025-07-06] MEDS: HYDROcodone-acetaminophen 10-325 mg Tablet 1 TAB PO (22:53)
[2025-07-06 23:07] VITALS: BP 129/79; PULSE 68; O2SAT 94
[2025-07-06 23:58] LABS: Glucose Urine UA Negative (Normal); Nitrate Urine Negative (Negative); Specific Gravity, Urine 1.006 (1.005-1.030)
[2025-07-07 00:04] LABS: PCP Screen Urine Negative (Negative)
== END 2025-07-06 23:08 | disposition home or self-care (01) ==
PROVIDERS: Emergency Provider Emergency Medicine; PCP Family Medicine
DX: G40.409 Other generalized epilepsy and epileptic syndromes, not intractable, without status epilepticus (principal); E86.0 Dehydration; F17.210 Nicotine dependence, cigarettes, uncomplicated
CPT/HCPCS: 36415; 36600; 70450; 80051; 80053; 80306; 80307; 81001; 82330; 82805; 83605; 85025; 87637; 96365; 96367; 96375; 99285; J0131; J1953; J2405; J7030; J9999